=== PATIENT | female | born 1980 | race Hispanic/Latino ===

== ENCOUNTER 2020-10-06 00:40 | Inpatient (IN) | payer OTHER, SELFPAY ==
[2020-10-06] VITALS (22 sets, daily range): BP systolic 99–140; BP diastolic 56–84; PULSE 74–100; RESP 16; TEMP 36.6–37.4; O2SAT 95–97; BMI 31.0
[2020-10-06 01:33] LABS: Basophils Absolute Auto 0.1 K/mm3 (0.0-0.1); Basophils Percent Auto 0.7 % (0.2-1.2); Eosinophils Percent Auto 0.1 % (0-4.4); Hematocrit 33.3 % (37.0-47.0); Hemoglobin 10.7 g/dL (12.0-15.0); Immature Granulocyte Absolute 0.09 K/mm3 (0.00-0.031); Immature Granulocyte Percent A 0.9 % (0-0.5); Mean Corpuscular HGB Conc 32.1 g/dl (32-36); Mean Corpuscular Hemoglobin 26.6 pg (26-34); Mean Corpuscular Volume 82.6 fl (80-100); Mean Platelet Volume 10.1 fl (7.4-10.4); Monocytes Absolute Auto 0.6 K/mm3 (0.1-0.6); Monocytes Percent Auto 5.6 % (2.6-8.5); Neutrophils Percent Auto 69.7 % (45.5-73.1); Nucleated Red Blood Cells Perc 0.2 % (0.0-0.2); Platelet Count Result 322 k/mm3 (150-375); Red Blood Count 4.03 M/mm3 (4.2-5.4); Red Cell Distribution Width 14.8 % (11.5-14.5)
--- NOTE | 2020-10-06 07:17 | P.HP_ITS ---
Obstetrics - Admit Note Admission Note: record reviewed. No pertinent additions to the history and/or any subsequent changes in the physical findings that are not consistent with the expected course of the were found. pt arrived in labor, hx HSV on valtrex, no lesions seen, SVE 4 cm, AROM moderate amount of clear odorles s fluid Additions to the history and/or subsequent changes in the physical findings follow. None.
[2020-10-06 08:30] LABS: Rapid Plasma Reagin Non-Reactive (NonReactive)
[2020-10-06] MEDS: LACTATED RINGERS 1,000 ML 125 ML IV CONT (09:22)
[2020-10-06] MEDS: OXYTOCIN 30 UNITS/NS 500 ML 30 UNITS/500 ML BAG IV CONT (09:22)
--- NOTE | 2020-10-06 12:52 | PM.OBPRVD ---
OB - Delivery Note Procedure Delivery date: 10/06/20 Procedure: vaginal delivery events: Gestational Diabetes Intrapartal events: None Induction method: AROM Delivery augmentation: pitocin Delivery monitor: external FHT and external uterine Route of delivery: Laceration Description: None Specimen: Yes Quantitative Blood Loss (ml): 86 Anesthesia type: None Disposition: floor Baby Date of : 10/06/20 Time of : 12:41 Weeks of gestation at delivery: 39 gender: Male Weight (pounds): 8 Weight (ounces): 1 presentation: vertex position: Left Occiput Anterior Placenta delivery description: Spontaneous cord vessel description: 3 Vessels, Nuchal Cord, Tight and Clamped/Cut score one minute: 5 score five minutes: 9 Narrative: baby to RN for supportive care at time of my exist baby and mother in stable condition
[2020-10-06] MEDS: OXYTOCIN 30 UNITS/NS 500 ML 30 UNITS/500 ML BAG 125 UNITS IV CONT (12:57)
[2020-10-06] MEDS: IBUPROFEN 600 MG TABLET PO (13:36)
--- NOTE | 2020-10-06 15:23 | PC.NURSE ---
Patient transferred to post room #285 per wheelchair from labor and delivery. Support person present. Oriented to unit, room, information board, rooming in, admission packet and security measures. Patient verbalizes understanding.
[2020-10-06] MEDS: ACETAMINOPHEN 325 MG TABLET 650 MG PO (15:44)
[2020-10-06] MEDS: valACYclovir HCL 500 MG TABLET PO (21:00)
[2020-10-07] MEDS: ACETAMINOPHEN 325 MG TABLET 650 MG PO (00:19)
[2020-10-07 03:55] VITALS: BP 110/68; PULSE 77; RESP 16; TEMP 36.4; O2SAT 95
[2020-10-07 04:45] LABS: Hematocrit 31.2 % (37.0-47.0); Hemoglobin 10.1 g/dL (12.0-15.0)
[2020-10-07 08:15] VITALS: BP 112/70; PULSE 78; RESP 16; TEMP 37; O2SAT 98
--- NOTE | 2020-10-07 08:21 | P.PNOB_ITS ---
OB - PN: Subj Subjective Date/time seen: 10/07/20 08:21 Patient comments: no complaints and pain well controlled baby status: doing well and nursing well [place] feeding status: exclusively breast feeding Narrative: would like DC home today. OB - PN: Obj Data Labs CBC & Chem 7: 10/07/20 04:03 Labs: Laboratory Results - last 24 hr 10/06/20 10/07/20 01:24 04:03 Hgb 10.1 L Hct 31.2 L RPR Non-reactive OB - PN A/P Plan day: 1 Plan: routine care and discharge home Comments: DC instructions given Time Spent With Patient Time: Total time spent is greater than 50% in coordination of care (as documented) at patient's floor/unit and/or counseling patient: Time with patient: less than 15 minutes Exam Narrative: Exam Narrative: NAD abdomen soft, nontender, fundus firm below the umbilicus Extremities nontender, 1+ edema
--- NOTE | 2020-10-07 08:25 | P.DS_ITS ---
DS: Admitting Diagnosis Admitting Diagnosis Admitting Diagnosis: labor term DS: Discharge Diagnosis Discharge Diagnosis (1) , delivered: Code(s): O80 - Encounter for full-term uncomplicated delivery Status: Acute OB - DS: Summary OB Procedures : Ultrasound OB Procedures Intrapartum: Spontaneous Vag Delivery OB Procedures: : None Peripartum Data Delivery Method: Natural Vaginal complications: none Status at Discharge Functional status at discharge: independent ambulation Time Spent with Patient Time attestation: Total time spent providing and/or coordinating discharge services: Exam Narrative: Exam Narrative: NAD abdomen soft, appropriately tender Ext non tender, 1+ edema DS: Data Data Completed and Pending Labs on day of discharge: Labs from last 24 hours 10/07/20 10/06/20 04:03 01:24 Hgb 10.1 L Hct 31.2 L RPR Non-reactive Discharge Plan Discharge Attending physician on discharge: Gege Figueroa Discharging Clinician: Gege Figueroa Anticipated Discharge Date/Time: 10/07/20 12:00 Patient Disposition: Home, Self-Care Activity: may shower and pelvic rest Diet: as tolerated Patient Instructions: Antibiotic Form Stand Alone Forms: General Discharge Information Follow-up/Referrals: Gege Figueroa MD [Physician] - (4 weeks) Discharge Medications: Continued Classic 28 mg iron- 800 mcg tablet 1 tablet PO DAILY RF: 0 Discontinued valacyclovir [Valtrex] 500 mg tablet 500 mg PO DAILY RF: 0 Date of admission: 10/06/20 00:40 Primary Care Provider: PHYSICIAN,REHABILITATION MEDICINE PHYSICIAN Admitting Provider: Garima Mccarthy Attending physician on admission: Garima Mccarthy Condition: Stable
[2020-10-07] MEDS: IBUPROFEN 600 MG TABLET PO (10:53)
[2020-10-07] MEDS: MULTIVIT/MIN/PREN/FOL AC/IRON TABLET 1 TAB PO (10:53)
--- NOTE | 2020-10-07 11:43 | PC.NURSE ---
Patient was given the opportunity to view the discharge video Mother & Baby Care, The First Two Weeks and to ask questions. Patient declined viewing the video and has been given the mother/baby guide for home reference.
[2020-10-07 13:00] VITALS: BP 118/74; PULSE 75; RESP 16; TEMP 36.9; O2SAT 97
[2020-10-07] MEDS: TETANUS,DIPHTHERIA,AC PERTUSSIS ADULT (0.5 ML) BOOSTRIX IM (17:02)
[2020-10-10 09:50] VITALS: BP 119/74; PULSE 75; RESP 20; TEMP 37.1; O2SAT 99
== END 2020-10-07 17:50 | disposition home or self-care (01) | DRG 560 ==
LOC: ANHLDR 01:19 → ANHOB2 10-07 08:25 → ANHLDR 10-10 09:49 → ANHOB2 10-10 09:49
PROVIDERS: Advanced Practice Midwife; Admitting Provider Obstetrics & Gynecology; Visit Provider Obstetrics & Gynecology
DX: O24.429 Gestational diabetes mellitus in childbirth, unspecified control (principal); Z37.0 Single live birth; Z3A.39 39 weeks gestation of pregnancy; O69.1XX0 Labor and delivery complicated by cord around neck, with compression, not applicable or unspecified; O99.02 Anemia complicating childbirth; D64.9 Anemia, unspecified
CPT/HCPCS: 36415; 85014; 85018; 85025; 86592; 86850; 86900; 86901; 86920; 90715; A9270; J2590; J7120

== ENCOUNTER 2021-12-16 14:33 | Emergency (ER) | payer OTHER, SELFPAY ==
--- NOTE | ~2021-12-16 | US_ITS ---
EXAMINATION: US OB <= 14 weeks fetus INDICATION: and abd pain and bleeding TECHNIQUE: Sonography of the pelvis was performed by transabdominal techniques (patient declined endo vaginal examination). LMP 10/16/2021. SERENITY by LMP 07/23/2022. GA by LMP 8 weeks 5 days. COMPARISON: None. RESULT: Uterus: - Orientation: Anteverted - Size: 8.2 x 5.0 x 6.7 cm - Myometrium: Homogeneous echogenicity . Gestation: - Intrauterine gestational sac: Single present - Mean Sac Diameter: 1.73 cm, corresponding gestational age 6 week 4 days - Yolk sac: Ovoid somewhat heterogeneous structure within the gestational sac may represent an enlarged abnormal appearing yolk sac. - Embryo: Not seen - Subgestational hematoma: Absent Right ovary: - Size : 2.7 x 1.8 x 1.6 cm - Normal sonographic appearance with physiologic follicles. Left ovary: -Not visualized Pelvis free fluid: None. IMPRESSION: Intrauterine of uncertain viability, with findings that are suspicious for but not diagnost ic of failure. Estimated Gestational Age: 6 weeks, 4 days by mean gestational sac diameter. SERENITY by ultrasound 2022. Reviewed, dictated and finalized at location K. IMPRESSION: Intrauterine of uncertain viability, with findings that are suspiciou s for but not diagnostic of failure. Estimated Gestational Age: 6 weeks, 4 days by mean gestational sac diameter. E DD by ultrasound 08/07/2022.
[2021-12-16 14:41] VITALS: BP 117/65; PULSE 78; RESP 14; TEMP 36.5; O2SAT 99
[2021-12-16 14:52] LABS: Basophils Percent Auto 0.3 % (0.2-1.2); Eosinophils Percent Auto 0.4 % (0-4.4); Hematocrit 37.4 % (37.0-47.0); Hemoglobin 12.4 g/dL (12.0-15.0); Immature Granulocyte Absolute 0.01 K/mm3 (0.00-0.031); Immature Granulocyte Percent A 0.1 % (0-0.5); Lymphocytes Absolute Auto 2.26 K/mm3 (0.9-3.2); Lymphocytes Percent Auto 32.2 % (18.3-44.2); Mean Corpuscular HGB Conc 33.2 g/dl (32-36); Mean Corpuscular Hemoglobin 28.5 pg (26-34); Mean Platelet Volume 8.9 fl (7.4-10.4); Monocytes Absolute Auto 0.3 K/mm3 (0.1-0.6); Monocytes Percent Auto 4.4 % (2.6-8.5); Neutrophils Absolute Auto 4.4 K/mm3 (1.3-6.7); Neutrophils Percent Auto 62.6 % (45.5-73.1); Platelet Count Result 335 k/mm3 (150-375); Red Blood Count 4.35 M/mm3 (4.2-5.4); Red Cell Distribution Width 11.8 % (11.5-14.5)
--- NOTE | 2021-12-16 15:34 | ED.GENADULT ---
HPI - General Adult General Chief complaint: Vaginal Bleeding Stated complaint: , bleeding Time Seen by Provider: 12/16/21 15:28 Source: RN notes reviewed History of Present Illness HPI narrative: Patient presents emergency room from home for vaginal bleeding. Patient states that last menstrual cycle was at the end of September states that she is G9, P7. States she has been having some abdominal pain in the lower abdomen described as cramping has been intermittent. States that vaginal bleeding is described as spotting she denies any fevers or chills nausea vomiting diarrhea or any other symptoms Related Data Home Medications Medication Instructions Recorded Confirmed vits no.126-ferrous fum 1 tablet PO DAILY 10/06/20 10/06/20 28 mg iron-folic acid 800 mcg tablet (Classic ) Allergies Allergy/AdvReac Type Severity Reaction Status Date / Time No Known Allergies Allergy Unverified 02/11/15 11:37 Review of Systems Review of Systems: Gen.: Denies fevers or chills ENT: Denies congestion Respiratory: Denies shortness of breath or cough CV: Denies chest pain or palpitations GI: D reports of lower abdominal cramping denies nausea vomiting or diarrhea see HPI Musculoskeletal: Denies back pain or muscle pain Neuro: Denies numbness, tingling, weakness or focal weakness Skin: Denies rash Except as documented, all other systems reviewed and negative PMFSH Social History Social History Smoking status: Never smoker Substance use: never Gender identity (if verbalized by the patient): Female Spiritual care concerns: No Exam Narrative: APPEARANCE: No acute distress, nontoxic, resting in bed HEENT: Normocephalic, atraumatic, OMM RESPIRATORY: No respiratory distress, clear to auscultation bilaterally with no rhonchi wheezing or rales CARDIOVASCULAR: RRR s murmur ABDOMINAL: Soft nondistended nontender to palpation no rebound or guarding : Normal external exam small mount Dr Holley blood in vaginal canal cervix is closed MUSCULOSKELETAl: Moves all extremities. No clubbing, cyanosis or edema. NEURO: Awake and alert. Following commands, speech normal, no focal deficits SKIN:: Warm, dry. Normal Color PSYCHIATRIC: Normal affect/mood Course Course Emergency Course: Discussed with Dr. Mccarthy presentation work-up reviewed the patient's ultrasound at this time agrees with plan for discharge patient follow-up in the office for repeat work-up and ultrasound Discussed with patient results of workup and diagnosis. Discussed need for follow-up with primary care, proper use of medication, and reasons to return to the emergency department. 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 for further imaging and work-up Vital Signs Vital signs: Vital Signs Temperature 97.7 F 12/16/21 14:41 Pulse Rate 78 12/16/21 14:41 Respiratory Rate 14 12/16/21 14:41 Blood Pressure 117/65 12/16/21 14:41 Pulse Oximetry 99 12/16/21 14:41 Oxygen Delivery Room Air 12/16/21 14:41 Temperature 97.7 F 12/16/21 14:41 Pulse Rate 78 12/16/21 14:41 Respiratory Rate 14 12/16/21 14:41 Blood Pressure 117/65 12/16/21 14:41 Pulse Oximetry 99 12/16/21 14:41 Oxygen Delivery Room Air 12/16/21 14:41 Medical Decision Making Vital Signs Vital Signs: Vital Signs Temperature 97.7 F 12/16/21 14:41 Pulse Rate 78 12/16/21 14:41 Respiratory Rate 14 12/16/21 14:41 Blood Pressure 117/65 12/16/21 14:41 Pulse Oximetry 99 12/16/21 14:41 Oxygen Delivery Room Air 12/16/21 14:41 Temperature 97.7 F 12/16/21 14:41 Pulse Rate 78 12/16/21 14:41 Respiratory Rate 14 12/16/21 14:41 Blood Pressure 117/65 12/16/21 14:41 Pulse Oxi
[2021-12-16] MEDS: ACETAMINOPHEN 500 MG TABLET 1000 MG PO (15:59)
[2021-12-16 18:25] VITALS: BP 137/83; PULSE 81; RESP 14; O2SAT 96
== END 2021-12-16 18:26 | disposition home or self-care (01) ==
PROVIDERS: Emergency Medicine; Emergency Provider Emergency Medicine
DX: O20.0 Threatened abortion (principal); Z3A.01 Less than 8 weeks gestation of pregnancy
CPT/HCPCS: 36415; 76801; 84702; 85025; 85461; 99284; A9270

== ENCOUNTER 2021-12-18 11:36 | Outpatient (CLI) | payer OTHER, SELFPAY | END 2021-12-18 11:37 | disposition home or self-care (01) | LOC: ANHLAB 11:37 | PROVIDERS: Visit Provider Obstetrics & Gynecology | DX: O20.0 Threatened abortion (principal) | CPT/HCPCS: 36415; 84702 ==

== ENCOUNTER 2021-12-20 06:49 | Outpatient (CLI) | payer OTHER, SELFPAY | END 2021-12-20 06:50 | disposition home or self-care (01) | PROVIDERS: Visit Provider Obstetrics & Gynecology | DX: O20.0 Threatened abortion (principal) | CPT/HCPCS: 36415; 84702 ==

== ENCOUNTER 2021-12-28 14:34 | Emergency (ER) | payer OTHER, SELFPAY ==
--- NOTE | ~2021-12-28 | US_ITS ---
US OB transvaginal 12/28/2021 16:57 Indication: Vaginal bleeding with . Retained products. Procedure: High-resolution transvaginal ultrasound of the pelvis Comparison: Ultrasound dated 12/16/2021 Findings: Uterus measures 9.8 x 5.3 x 6.7 cm. Endometrium is thickened measuring 1.6 cm with heteroge neous appearance. There is fluid in the endometrium. No gestational sac identified. The ovaries are w ithin normal limits. Right ovary measures 2.4 x 1.5 x 1.7 cm. Left ovary measures 3.8 x 2 x 1.7 cm. Impression: 1: Thickened heterogeneous endometrium containing fluid measuring up to 1.6 cm. Cannot exclude retain ed products of conception. No evidence for intrauterine gestational sac or pole. Recommend foll ow-up with serial quantitative and beta-hCG levels and ultrasound as clinically indicated. Reviewed, dictated and finalized at location A. Impression: 1: Thickened heterogeneous endometrium containing fluid measuring up to 1.6 cm. Cannot exclude retained products of conception. No evidence for intrauterine g estational sac or pole. Recommend follow-up with serial quantitative and beta-hCG levels and ultrasound as clinically indicated.
[2021-12-28 14:44] VITALS: BP 137/82; PULSE 92; RESP 18; TEMP 36.5; O2SAT 100
--- NOTE | 2021-12-28 15:07 | ED.FEMALEGU ---
HPI - Female Genitourinary General Chief complaint: Vaginal Bleeding <Emma Sotomayor PA-C - Last Filed: 12/28/21 18:23> Stated complaint: vaginal bleeding <Emma Sotomayor PA-C - Last Filed: 12/28/21 18:23> Time Seen by Provider: 12/28/21 14:56 <Emma Sotomayor PA-C - Last Filed: 12/28/21 18:23> History of Present Illness HPI Narrative: Patient is a 41-year-old female who is currently about 8 weeks by LMP here for evaluation of vaginal bleeding and lower abdominal pain x 7 days. Patient was diagnosed with threatened miscarriage at the end of November after her ultrasound was suspicious for failure. She followed up with her OB, Dr. Figueroa, had a repeat ultrasound at the end of last week that showed no yolk sac or pole. Patient has been experiencing vaginal bleeding ever since then, but yesterday she began to pass blood clots. Patient passed a large blood clot upon arrival to the ED; since passage she notes sx improved. No fevers, chills, back pain, leg swelling. <Emma Sotomayor PA-C - Last Filed: 12/28/21 18:23> Related Data Home medications: Home Medications Medication Instructions Recorded Confirmed vits no.126-ferrous fum 1 tablet PO DAILY 10/06/20 10/06/20 28 mg iron-folic acid 800 mcg tablet (Classic ) <Emma Sotomayor PA-C - Last Filed: 12/28/21 18:23> Allergies/Adverse reactions: Allergies Allergy/AdvReac Type Severity Reaction Status Date / Time No Known Allergies Allergy Verified 12/28/21 14:57 <PLACIDO Roque Last Filed: 12/28/21 18:23> Review of Systems Review of Systems: Gen: Denies fevers or chills Eyes: Denies eye pain or visual change ENT: Denies congestion Respiratory: Denies shortness of breath or cough CV: Denies chest pain or palpitations GI: reports lower abdominal pain. Denies nausea, emesis or diarrhea : reports vaginal bleeding. Musculoskeletal: Denies back pain or muscle pain Neuro: Denies numbness, tingling, weakness or focal weakness Skin: Denies rash Except as documented, all other systems reviewed and negative <Emma Sotomayor PA-C - Last Filed: 12/28/21 18:23> [facility] Social History Social History: Social History Smoking status: Never smoker Substance use: never Gender identity (if verbalized by the patient): Female Spiritual care concerns: No <Emma Sotomayor PA-C - Last Filed: 12/28/21 18:23> Exam Narrative: APPEARANCE: Uncomfortable and anxious appearing, tearful Head: Normocephalic and atraumatic. EYES: PERRLA/EOMI, conjunctivae clear NOSE: No nasal drainage EARS: External ear normal in appearance THROAT: Oropharynx is clear. Mucous membranes are moist. NECK: Supple. No adenopathy, no masses. RESPIRATORY: Airway patent, respirations nonlabored. Clear to auscultation bilaterally, no rales, rhonchi, wheezing. CARDIOVASCULAR: Regular rate and rhythm without murmurs, rubs, or gallops. : 8 x 10 cm blood clot passed in bed, large amount of blood noted. Exam performed with motion picture director Jennifer; moderate amount of blood noted in vaginal vault with small blood clots; no brisk bleeding. suprapubic pressure applied with patient bearing down; small blood clot passed. ABDOMINAL: Normoactive bowel sounds. Soft, nontender, nondistended. No rebound tenderness or guarding. MUSCULOSKELETAL: Extremities are warm and well-perfused. Moves all extremities well. No edema. NEURO: Normal speech. No focal neurologic deficits. SKIN: Skin is warm and dry. No rashes. PSYCHIATRIC: Normal affect/mood. <Emma Sotomayor PA-C - Last Filed: 12/28/21 18:23> Course FINANCIAL SERVICES DIRECTOR/PA Physician Supervision I examined this patient. I discussed this patient with HEATHER Sotomayor, I agree with the assessment and plan as documented. <Mich Fields MD - Last Filed: 12/29/21 06:58> Consultations Consultation #1: d/w stacy Jacobs
[2021-12-28 15:28] LABS: Basophils Percent Auto 0.5 % (0.2-1.2); Eosinophils Absolute Auto 0.1 K/mm3 (0-0.3); Eosinophils Percent Auto 0.7 % (0-4.4); Hematocrit 33.7 % (37.0-47.0); Hemoglobin 10.9 g/dL (12.0-15.0); Immature Granulocyte Absolute 0.03 K/mm3 (0.00-0.031); Immature Granulocyte Percent A 0.4 % (0-0.5); Lymphocytes Absolute Auto 1.97 K/mm3 (0.9-3.2); Lymphocytes Percent Auto 24.2 % (18.3-44.2); Mean Corpuscular HGB Conc 32.3 g/dl (32-36); Mean Corpuscular Hemoglobin 27.9 pg (26-34); Mean Corpuscular Volume 86.4 fl (80-100); Mean Platelet Volume 9.2 fl (7.4-10.4); Monocytes Absolute Auto 0.4 K/mm3 (0.1-0.6); Monocytes Percent Auto 4.9 % (2.6-8.5); Neutrophils Absolute Auto 5.6 K/mm3 (1.3-6.7); Neutrophils Percent Auto 69.3 % (45.5-73.1); Platelet Count Result 296 k/mm3 (150-375); White Blood Count 8.1 K/mm3 (4.5-10.0)
[2021-12-28 16:45] VITALS: PULSE 78; RESP 17; O2SAT 97
[2021-12-28 18:08] VITALS: PULSE 65; RESP 18; O2SAT 97
== END 2021-12-28 18:10 | disposition home or self-care (01) ==
PROVIDERS: Physician Assistant; Emergency Provider Preventive Medicine Aerospace Medicine
DX: O03.9 Complete or unspecified spontaneous abortion without complication (principal)
CPT/HCPCS: 36415; 76817; 84702; 85025; 99284

== ENCOUNTER 2022-07-19 07:51 | Outpatient (CLI) | payer OTHER, SELFPAY ==
--- NOTE | ~2022-07-19 | US_ITS ---
EXAMINATION: US pelvic complete w TV DATE: 07/19/2022 08:43 INDICATION: Personal history of complicated . Lower abdominal pain. Comparison:12/28/2021 TECHNIQUE: Multiple transabdominal and endovaginal sonographic images of the pelvis performed. FINDINGS: The uterus measures 7.9 x 4 x 5.4 cm. The endometrial complex measures 10 mm. The right ovary measures 3.7 x 2 x 1.9 cm and the left ovary measures 1.6 x 0.7 x 0.8 cm. There are small follicles in each ovary. Normal doppler signal in both ovaries. There is no free fluid in the pelvis. There are no abnormal masses seen on either side. IMPRESSION: 1. Unremarkable pelvic ultrasound. Reviewed, dictated and finalized at location B. HOUSE LEAD
== END 2022-07-19 07:52 | disposition home or self-care (01) ==
PROVIDERS: Visit Provider Physician Assistant
DX: Z87.59 Personal history of other complications of pregnancy, childbirth and the puerperium (principal)
CPT/HCPCS: 76830; 76856

== ENCOUNTER 2023-07-09 09:59 | Inpatient (IN) | payer OTHER, SELFPAY ==
[2023-07-09] VITALS (25 sets, daily range): BP systolic 98–148; BP diastolic 56–94; PULSE 64–96; RESP 18; TEMP 36.8–36.9; O2SAT 95–99; BMI 28.6
--- NOTE | 2023-07-09 12:33 | WPDOBADMIT ---
Obstetrics - Admit Note Admission Note: record reviewed. No pertinent additions to the history and/or any subsequent changes in the physical findings that are not consistent with the expected course of the were found. Additions to the history and/or subsequent changes in the physical findings follow. pt admitted in labor, SVE 6-7 cm/90/-2 AROM large amount of clear, odorless fluid, anticipate vaginal delivery
[2023-07-09 12:45] LABS: Basophils Absolute Auto 0.1 K/mm3 (0.0-0.1); Basophils Percent Auto 0.4 % (0.2-1.2); Eosinophils Percent Auto 0.2 % (0-4.4); Hematocrit 37.9 % (37.0-47.0); Hemoglobin 12.4 g/dL (12.0-15.0); Immature Granulocyte Absolute 0.05 K/mm3 (0.00-0.031); Immature Granulocyte Percent A 0.4 % (0-0.5); Lymphocytes Absolute Auto 2.37 K/mm3 (0.9-3.2); Lymphocytes Percent Auto 19.4 % (18.3-44.2); Mean Corpuscular HGB Conc 32.7 g/dl (32-36); Mean Corpuscular Hemoglobin 28.1 pg (26-34); Mean Corpuscular Volume 85.9 fl (80-100); Mean Platelet Volume 10.7 fl (7.4-10.4); Monocytes Absolute Auto 0.4 K/mm3 (0.1-0.6); Monocytes Percent Auto 3.6 % (2.6-8.5); Neutrophils Absolute Auto 9.3 K/mm3 (1.3-6.7); Platelet Count Result 361 k/mm3 (150-375); Red Blood Count 4.41 M/mm3 (4.2-5.4); Red Cell Distribution Width 14.8 % (11.5-14.5); White Blood Count 12.2 K/mm3 (4.5-10.0)
[2023-07-09] MEDS: OXYTOCIN 30 UNITS/NS 500 ML 30 UNITS/500 ML BAG 999 UNITS IV CONT (12:47)
--- NOTE | 2023-07-09 12:52 | P.PCNOB_ITS ---
OB - Vaginal Delivery Note Procedure Delivery date: 07/09/23 Events: Chronic Hypertension (hx) Induction method: None Delivery augmentation: Rupture of Membranes Delivery monitor: External FHT and External Uterine Route of delivery: Episiotomy description: None Laceration Description: None Specimen: No Quantitative Blood Loss (ml): 25 Anesthesia type: None Disposition: Floor [place] Baby Date of : 07/09/23 Time of : 12:44 Weeks of gestation at delivery: 38 Infant gender: Female presentation: vertex position: Left Occiput Anterior Placenta delivery description: Spontaneous Cord Vessel Description: 3 Vessels and Delayed Cord Clamping score one minute: 8 score five minutes: 9 Narrative: mother and baby skin to skin in stable condition
[2023-07-09 12:57] LABS: Alanine Aminotransferase 11 U/L (6-35); Albumin Level 3.8 g/dL (3.5-5.1); Alkaline Phosphatase 188 U/L (38-126); Anion Gap 12 mmol/L (8-16); Aspartate Amino Transferase 25 U/L (14-36); Bilirubin,Total 0.6 mg/dL (0.2-1.3); Blood Urea Nitrogen 8 mg/dL (7-17); Calcium 9.1 mg/dL (8.4-10.2); Carbon Dioxide 19 mmol/L (22-30); Chloride 104 mmol/L (98-107); Estimated Glomerular Filt Rate > 60; Glucose 73 mg/dL (65-110); Potassium 3.5 mmol/L (3.4-5.0); Sodium 135 mmol/L (137-145)
--- NOTE | 2023-07-09 13:13 | LDADM ---
This patient, Sadia Harrell, was admitted to Labor/Delivery/Recovery 107 on 07/09/23 at 09:59. Plans for labor, pain management and were discussed with patient. Patient/family oriented to hospital policies and general routines including ID bracelet, bed and alarms, visiting hours, pain management, procedures, bathroom and other care routines, personal items, smoking policy, room service/diet and guest tray routines, security routines, and visiting hours. Patient/Family are encouraged to report perceived risks to care and to ask questions if they do not understand what they are told or what they should do. See OBIX for further documentation.
[2023-07-09] MEDS: OXYTOCIN 30 UNITS/NS 500 ML 30 UNITS/500 ML BAG 125 UNITS IV CONT (13:21)
[2023-07-09] MEDS: IBUPROFEN 600 MG TABLET PO (14:19)
[2023-07-09] MEDS: WITCH HAZEL 40 PADS 1 PAD TOPICAL (16:02)
[2023-07-09] MEDS: BENZOCAINE 20% AER SPR (*SP) 56 GM CAN 1 SPRAY TOPICAL (16:02)
--- NOTE | 2023-07-09 16:05 | OBPPTRN ---
Patient transferred to post room #280 via wheelchair. Support person present. Oriented to unit, room, information board, rooming in, admission packet and security measures. Patient verbalizes understanding.
[2023-07-10 05:12] VITALS: BP 138/64; PULSE 62; RESP 18; TEMP 36.9; O2SAT 97
[2023-07-10] MEDS: IBUPROFEN 600 MG TABLET PO (05:42)
[2023-07-10 06:18] LABS: Hematocrit 35.3 % (37.0-47.0); Hemoglobin 11.2 g/dL (12.0-15.0)
[2023-07-10 07:45] VITALS: BP 116/72; PULSE 62; RESP 16; TEMP 36.6; O2SAT 99
[2023-07-10] MEDS: MULTIVIT/MIN/PREN/FOL AC/IRON TABLET 1 TAB PO (09:22)
[2023-07-10] MEDS: DOCUSATE SODIUM 100 MG CAPSULE PO (09:22)
--- NOTE | 2023-07-10 12:51 | PM.OBPNVD ---
OB - PN: Subj Subjective Date/time seen: 07/10/23 12:51 Patient comments: no complaints, pain well controlled, incisional pain, tolerating diet and flatus present OB - PN: Obj Data Labs 07/10/23 05:33 07/09/23 12:16 Labs: Laboratory Results - last 24 hr 07/09/23 07/10/23 12:16 05:33 Hgb 11.2 L Hct 35.3 L Sodium 135 L Potassium 3.5 Chloride 104 Carbon Dioxide 19 L Anion Gap 12 BUN 8 Creatinine 0.60 L Estim Creat Clear Calc Not Reportable Estimated GFR > 60 Glucose 73 Calcium 9.1 Total Bilirubin 0.6 AST 25 ALT 11 Alkaline Phosphatase 188 H Total Protein 7.0 Albumin 3.8 Blood Type O Positive Antibody Screen Negative OB - PN A/P Plan day: 1 Plan: routine care Comments: No problems, routine care Time Spent With Patient Time: Total time spent is greater than 50% in coordination of care (as documented) at patient's floor/unit and/or counseling patient: Exam Const: General: comfortable, no acute distress and alert Resp: Effort & Inspection: normal respiratory effort Auscultation: no crackles, no rales and no rhonchi Cardio: Rate: regular rate Heart sounds: no click, no murmurs and no rubs GI: Inspection: non-distended GI Palp: No Tenderness to palpation present (GI) Auscultation: normal bowel sounds Other: Incision - CDI Extrem: General: normal to inspection, no pedal edema and no calf tenderness
[2023-07-10 12:59] LABS: Rapid Plasma Reagin Non-Reactive (NonReactive)
[2023-07-10 20:52] VITALS: BP 104/62; PULSE 64; RESP 16; TEMP 36.8; O2SAT 96
[2023-07-11 08:00] VITALS: PULSE 58; RESP 16; O2SAT 98
[2023-07-11 08:15] VITALS: BP 132/91; PULSE 58; RESP 16; TEMP 37.1; O2SAT 98
[2023-07-11] MEDS: MULTIVIT/MIN/PREN/FOL AC/IRON TABLET 1 TAB PO (09:17)
--- NOTE | 2023-07-11 10:35 | PM.OBPNVD ---
OB - PN: Subj Subjective Date/time seen: 07/11/23 10:35 Interval history: Doing well PPD#2 Baby on bili lights Patient recovering well, some right sided hip and thigh pain, likely 2/2 labor Voiding without issue Bleeding appropriate OB - PN: Obj Data Labs 07/10/23 05:33 07/09/23 12:16 Labs: Laboratory Results - last 24 hr 07/09/23 12:16 RPR Non-reactive OB - PN A/P Plan day: 2 Plan: discharge home Time Spent With Patient Time: Total time spent is greater than 50% in coordination of care (as documented) at patient's floor/unit and/or counseling patient: Review of Systems Review of Systems: All systems reviewed & are unremarkable except as noted in HPI and below Exam Const: General: comfortable, no acute distress and alert Resp: Effort & Inspection: normal respiratory effort Cardio: Rate: regular rate GI: Inspection: non-distended Extrem: General: normal to inspection, no pedal edema and no calf tenderness
--- NOTE | 2023-07-11 13:06 | PC.NURSE ---
[id number] With father of baby interpreting mother shared that she has breastfed all 6 of her other children for 1 year and she has no questions or concerns. She states she is on her own with no pain. There is formula bottle at bedside for supplementing infant under phototherapy. Mother states she is confident to continue effectively her infant at home, when to call for assistance, denies any additional assistance or education at this time. Reinforced understanding of milk production, transition of milk, signs of adequate intake, transition of stool, prevention/relief of engorgement, plugged ducts, mastitis, responsive watching for feeding cues, the different methods of stimulating infant to breastfeed 1-3 hours after the start of the last feeding, community resources, medication information reviewed per [facility] and when to call a provider using the resource of the mom and baby guide. Mother voiced understanding of the education shared through father of baby nahomi. Reported to the Primary RN.
[2023-07-11 16:51] VITALS: BP 120/68; PULSE 99; RESP 18; TEMP 36.6; O2SAT 96
--- NOTE | 2023-07-14 23:29 | PM.OBDSVD ---
DS: Admitting Diagnosis Discharge Date 07/11/23 Admitting Diagnosis labor DS: Discharge Diagnosis Discharge Diagnosis (1) (spontaneous vaginal delivery): Code(s): O80 - Encounter for full-term uncomplicated delivery Status: Acute OB - DS: Summary OB Procedures : None OB Procedures Intrapartum: Spontaneous Vag Delivery OB Procedures: : None Peripartum Data Laceration Description: None Episiotomy description: None Time Spent with Patient Time attestation: Total time spent providing and/or coordinating discharge services: Discharge Plan Discharge Attending physician on discharge: Balwinder Long Consulting providers: Erica López Discharging Clinician: Balwinder Long Patient Disposition: Home, Self-Care Activity: no shower and pelvic rest Diet: as tolerated Discharge Instructions: Education: Mom and Baby Guide Given to: Mother Follow-Up: Call your delivering provider's office for an appointment to be seen in: 5 weeks Mom and baby [facility] come [facility] the [facility] for the follow-up appointment. Appointment Date/Time: July 12, 2023 at 11:00 am What to expect at your follow-up visit: Blood Pressure Check Physical Assessment Call [phone] if you are unable to keep your appointment time. BREAST CARE: * Wear a snug supportive bra. * For engorgement discomfort: Breast Feeding: * Apply warm moist washcloths * Express milk as needed to relieve engorgement * Wear loose clothing * For sore nipples: * Identify correct latch-on * Apply warm moist washcloths before and after nursing * Air dry nipples after nursing * May apply Lansinoh cream to nipples EPISIOTOMY/PERINEAL CARE: * Until bleeding stops, use your nadja bottle after urinating * Change your pad frequently throughout the day * You may take sitz baths several times a day (fill your bathtub with warm water and soak for 20 minutes.) Do NOT bathe in the water * No tub baths until seen by your physician - You may shower ACTIVITY: * Rest as much as possible. * Do not exercise or lift anything heavier than your baby (such as laundry or other children.) * Avoid stairs or driving as much as possible. * Do not put anything into the vagina. No douching, tampons, or sexual activity until seen by physician. NOTIFY PHYSICIAN IF YOU HAVE ANY QUESTIONS OR IF ANY OF THE FOLLOWING SYMPTOMS OCCUR: * If your perineum becomes red, swollen, or more painful than what you have experienced in the hospital. * If your vaginal bleeding becomes foul smelling. * If your vaginal bleeding becomes more heavy than a period or if your bleeding changes from pink to bright red. However, you may pass an occasional walnut-sized clot once or twice for the first week . * If you experience a sharp, shooting pain in you calves. * If you discover a hard, reddened area on your breast or if you experience flu-like symptoms. DIET: * Eat regular, well-balanced meals. * Drink plenty of fluids daily. If , drink to thirst. Patient Instructions: Antibiotic Form Stand Alone Forms: General Discharge Information Follow-up/Referrals: Erica López CNM [Primary Care Provider] - 5 Weeks Discharge Medications: Continued Classic 28 mg iron- 800 mcg tablet 1 tablet PO DAILY Discontinued ferrous sulfate 325 mg (65 mg iron) Tablet 325 mg PO DAILY aspirin 81 mg Capsule 81 mg PO DAILY Date of admission: 07/09/23 09:59 Primary Care Provider: Erica López Admitting Provider: Garima Mccarthy Attending physician on admission: Balwinder Long Condition: Stable
== END 2023-07-11 19:35 | disposition home or self-care (01) | DRG 560 ==
LOC: ANHOB2 07-11 11:02 → ANHLDR 07-14 08:13 → ANHOB2 07-14 08:13
PROVIDERS: Admitting Provider Obstetrics & Gynecology; PCP Advanced Practice Midwife; Visit Provider Obstetrics & Gynecology
DX: O62.3 Precipitate labor (principal); Z37.0 Single live birth; Z3A.38 38 weeks gestation of pregnancy; Z23 Encounter for immunization
CPT/HCPCS: 36415; 80053; 85014; 85018; 85025; 86592; 86850; 86900; 86901; 90471; 90686; A9270; G0008; J2590

== ENCOUNTER 2023-09-12 10:23 | Outpatient (CLI) | payer OTHER, SELFPAY ==
--- NOTE | ~2023-09-12 | US_ITS ---
EXAMINATION: US abdomen complete DATE: 09/12/2023 11:53 INDICATION: Right upper quadrant abdominal pain. TECHNIQUE: Multiple grayscale and Doppler ultrasound images of the abdomen were obtained. COMPARISON: None FINDINGS: The visualized portions of the head and body of the pancreas are normal. There is diffuse h epatic steatosis. There is a 1.2 cm hypoechoic mass in the liver. There is normal flow in main portal vein. The gallbladder is normal in size. No gallstones or gallbladder wall thickening. There is no s onographic Waller's sign. The common duct is normal and measures 3 mm. The kidneys are normal in size . The spleen is normal in size. Abdominal aorta is normal in caliber. Inferior vena cava is normal. IMPRESSION: 1. 1.2 cm hypoechoic liver mass, which may be benign or malignant. Abdomen MRI without and with contr ast is recommended. 2. Diffuse hepatic steatosis. Reviewed, dictated and finalized at location A. IMPRESSION: 1. 1.2 cm hypoechoic liver mass, which may be benign or malignant. Abdomen MRI without and with contrast is recommended. 2. Diffuse hepatic steatosis.
== END 2023-09-12 10:24 | disposition home or self-care (01) ==
PROVIDERS: PCP Advanced Practice Midwife; Visit Provider Advanced Practice Midwife
DX: R10.11 Right upper quadrant pain (principal); K76.0 Fatty (change of) liver, not elsewhere classified
CPT/HCPCS: 76700

== ENCOUNTER 2023-10-30 10:09 | Outpatient (CLI) | payer OTHER, SELFPAY ==
[2023-10-30 11:00] LABS: Prothrombin Time 13.5 Seconds (11.1-14.7)
[2023-10-30 11:05] LABS: Lipase 84 U/L (23-300)
[2023-10-30 11:52] LABS: Iron 84 ug/dL (37-170)
[2023-10-30 12:05] LABS: Percent Iron Saturation 20 % (20-50)
[2023-10-30 12:14] LABS: Hepatitis B Surface Antigen Negative (Negative)
[2023-10-30 12:19] LABS: HAV RESULT Negative (Negative); Hepatitis B Core IgM Result Negative (Negative)
[2023-10-30 12:31] LABS: Hepatitis C Virus Antibody Negative (Negative)
[2023-11-03 12:24] LABS: Alpha-1-Antitrypsin, QN 115 mg/dL (83-199); Ceruloplasmin 31 mg/dL (14-48)
[2023-11-04 23:13] LABS: LKM 1 Antibody <=20.0 U (<=20.0)
[2023-11-06 13:23] LABS: Actin Antibody (IgG) <20 U (<20)
[2023-11-10 21:03] LABS: Mitochondrial (M2) Ab (IgG) <20.0 U
== END 2023-10-30 10:10 | disposition home or self-care (01) ==
LOC: ANHLAB 10:10
PROVIDERS: PCP Advanced Practice Midwife; Visit Provider Nurse Practitioner
DX: R74.8 Abnormal levels of other serum enzymes (principal); K76.9 Liver disease, unspecified; K74.60 Unspecified cirrhosis of liver
CPT/HCPCS: 36415; 80074; 82103; 82390; 82728; 83520; 83540; 83550; 83690; 85610; 86038; 86039; 86364; 86376

== ENCOUNTER 2023-11-13 08:30 | Emergency (ER) | payer OTHER, SELFPAY ==
[2023-11-13] VITALS (8 sets, daily range): BP systolic 102–140; BP diastolic 71–84; PULSE 98–125; RESP 12–22; TEMP 37.7–38.4; O2SAT 95–97
--- NOTE | ~2023-11-13 | XR_ITS ---
XR chest 2V Ordering provider: Jerrell Frederick History: 43 years Female with . cough and fever . Comparison: None. FINDINGS: MEDIASTINUM: The cardiac silhouette is not enlarged. LUNGS: No infiltrates, effusions or pneumothorax. OTHER: No free air under the diaphragm. IMPRESSION: No acute cardiopulmonary pathology. Reviewed, dictated and finalized at location A.
--- NOTE | ~2023-11-13 | CT_ITS ---
EXAMINATION: CT abdomen pelvis w con DATE: 11/13/2023 10:58 INDICATION: Abdominal pain and fever TECHNIQUE: Computed tomography (CT) of the abdomen and pelvis was performed with 100 mL Omnipaque-350 intravenous contrast. Automated exposure control and iterative reconstruction technique were employe d. The dose-length product was 472.03 mGy-cm. COMPARISON: None FINDINGS: 9 mm centrally calcified nodule at the basilar right middle lobe consistent with sequela of old granu lomatous disease. Lung bases are otherwise clear. Heart size is normal. No pericardial or pleural eff usion. Liver, gallbladder, spleen, pancreas, bilateral adrenal glands and kidneys are normal. Small a mount of fluid scattered throughout the large and small bowel consistent with nonspecific diarrhea. N o bowel obstruction. Normal appendix. Bladder, uterus and bilateral adnexa are unremarkable. Trace am ount of likely physiologic free fluid in the cul-de-sac. No abscess or free intraperitoneal gas. No p athologically enlarged abdominal or pelvic lymphadenopathy. There are small erosions with iliac side predominance at the bilateral sacralized joints consistent with relatively symmetric mild bilateral s acroiliitis. IMPRESSION: 1. Fluid throughout nondilated small and large bowel consistent with nonspecific diarrhea. 2. Relative symmetric mild bilateral sacroiliitis. Differential includes enteropathic arthritis relat ed to Crohn's disease or ulcerative colitis, ankylosing spondylitis, rheumatoid arthritis and Whipple 's disease. Reviewed, dictated and finalized at location B. IMPRESSION: 1. Fluid throughout nondilated small and large bowel consistent with nonspecifi c diarrhea. 2. Relative symmetric mild bilateral sacroiliitis. Differential includes entero pathic arthritis related to Crohn's disease or ulcerative colitis, ankylosing s pondylitis, rheumatoid arthritis and Whipple's disease.
--- NOTE | 2023-11-13 08:46 | ECG_ITS ---
Test Date: 2023-11-13 08:50:37 Measurements Intervals Adrian Rate: 123 P: 38 NH: 158 QRS: 139 QRSD: 104 T: 5 QT: 432 QTc: 620 Interpretive Statements SINUS TACHYCARDIA INCOMPLETE RIGHT BUNDLE BRANCH BLOCK [90+ ms QRS DURATION, TERMINAL R IN V1/V2, 40+ ms S IN I/aVL/V4/V5/V6] POSSIBLE RIGHT VENTRICULAR HYPERTROPHY [SOME/ALL OF: PROMINENT R IN V1, LATE TRANSITION, RAD, JERSON, SSS] No previous ECG available for comparison Electronically Signed On 11-13-2023 13:36:41 CDT by Bry Mejia M.D.
--- NOTE | 2023-11-13 08:56 | ED.FEVER ---
HPI - Fever General Chief Complaint: Fever Stated Complaint: fever, bodyaches Time Seen by Provider: 11/13/23 08:35 History of Present Illness HPI Narrative: 43-year-old female presents to the emergency department for evaluation for onset of upper abdominal pain and fever. Patient states she has had abdominal pain for greater than 1 month. Patient was scheduled to have an outpatient EGD today when she was found to be tachycardic and have a low-grade fever. Patient was referred to the emergency department for further evaluation. Related Data Home Medications Medication Instructions Recorded Confirmed ergocalciferol (vitamin D2) 1,250 1,250 mcg PO DIRECTED 11/06/23 11/06/23 mcg (50,000 unit) capsule omeprazole 20 mg capsule,delayed 20 mg PO BID 11/06/23 11/13/23 release Allergies Allergy/AdvReac Type Severity Reaction Status Date / Time No Known Allergies Allergy Verified 11/13/23 07:52 Review of Systems Review of Systems: All systems reviewed & are unremarkable except as noted in HPI and below PMFSH Past Medical History Medical History (Updated 11/13/23 @ 12:32 by Jerrell Frederick MD) GERD (gastroesophageal reflux disease) NAFLD (nonalcoholic fatty liver disease) Family History Family History (Updated 06/27/23 @ 14:46 by Angelia Sin RN) Other Unknown family medical history Social History Social History Smoking status: Never smoker Substance use: never Substance use type: does not use Do You Feel Safe in your Home?: Yes Lack of Transportation: No Lack of Food: Never True Current Housing: I Have Housing Concerned About Future Housing: No Difficulty Paying Gas/Electric Bills: No Difficulty Paying for Meds: No Currently Unemployed: No Education: High School Diploma/GED Difficulty w/ Childcare or Family Care: No Living arrangements: with family Gender identity (if verbalized by the patient): Female Spiritual care concerns: No Exam Narrative: APPEARANCE: Well appearing, no pain, no distress, well-nourished. HEAD: normocephalic, atraumatic. EYES: PERRLA/EOMI, conjunctivae clear. NOSE: Normal no drainage EARS:TMS clear with good light reflex. THROAT: Pharynx clear, no exudate. NECK: Supple. No adenopathy, no masses. RESPIRATORY: Airway patent, respirations nonlabored. Clear to auscultation bilaterally, no rales, rhonchi, wheezing. CARDIOVASCULAR: Regular rate and rhythm without murmurs rubs or gallops. ABDOMINAL: Epigastric tenderness to palpation MUSCULOSKELETAL: Moves all extremities. Strength/ROM intact, No edema, No calf tenderness. NEURO: Alert. Cranial nerves II through XII intact. Grossly intact SKIN: Warm, dry. Normal Color Course AMBULATORY TECHNOLOGIST/PA Physician Supervision Patient felt improved female was discharged home Vital Signs Vital signs: Vital Signs Temperature 101.2 F H 11/13/23 08:41 Pulse Rate 125 H 11/13/23 08:41 Respiratory Rate 21 H 11/13/23 08:41 Blood Pressure 140/76 11/13/23 08:41 Pulse Oximetry 97 11/13/23 08:41 Oxygen Delivery Room Air 11/13/23 08:41 Temperature 100 F H 11/13/23 11:00 Pulse Rate 104 H 11/13/23 12:24 Respiratory Rate 16 11/13/23 12:24 Blood Pressure 102/71 11/13/23 12:24 Pulse Oximetry 96 11/13/23 12:24 Oxygen Delivery Room Air 11/13/23 08:41 MDM - Fever MDM Narrative Medical decision making narrative: 43-year-old female present to the emergency department for evaluation for epigastric pain. Patient does have a low-grade fever this was treated with Tylenol. Patient does have a leukocytosis 11.9 a stable hemoglobin of 13.2. No acute abnormalities on the patient's CMP UA was negative for infection. Patient was negative for influenza RSV and for COVID. CT of the pelvis was ordered due to the patient's discomfort and does show colitis. Patient will be treated for colitis with Augmentin also provided Zofran for nausea control. Patient was advised to follow a cl
[2023-11-13 09:26] LABS: Appearance Urine Clear (Clear); Bilirubin Urine Negative (Negative); Blood Urine Negative (Negative); Color Urine Yellow (Yellow); Glucose Urine UA Negative (Negative); Ketones Urine Negative (Negative); Leukocyte Esterase Ur Negative LEU/UL (Negative); Nitrate Urine Negative (Negative); Protein Urine Negative (Negative); Specific Grav Ur 1.007 (1.001-1.035); Urobilinogen Urine 0.2 mg/dL (<2.0); pH Urine 8.5 (5.0-9.0)
[2023-11-13 09:27] LABS: Add Urine Microscopic? NO
[2023-11-13 09:59] LABS: Influenza A QL RT-PCR Negative (Negative); Influenza B QL RT-PCR Negative (Negative); RSV RNA, RT-PCR Negative (Negative); SARS-CoV-2 RNA PCR Negative (Negative)
[2023-11-13 10:02] LABS: Basophils Percent Auto 0.3 % (0.2-1.2); Eosinophils Percent Auto 0.1 % (0-4.4); Hemoglobin 13.2 g/dL (12.0-15.0); Immature Granulocyte Absolute 0.06 K/mm3 (0.00-0.031); Immature Granulocyte Percent A 0.5 % (0-0.5); Lymphocytes Absolute Auto 0.83 K/mm3 (0.9-3.2); Mean Corpuscular HGB Conc 33.8 g/dl (32-36); Mean Corpuscular Hemoglobin 29.6 pg (26-34); Mean Corpuscular Volume 87.4 fl (80-100); Mean Platelet Volume 9.3 fl (7.4-10.4); Monocytes Absolute Auto 0.4 K/mm3 (0.1-0.6); Neutrophils Absolute Auto 10.6 K/mm3 (1.3-6.7); Neutrophils Percent Auto 89.1 % (45.5-73.1); Platelet Count Result 297 k/mm3 (150-375); Red Blood Count 4.46 M/mm3 (4.2-5.4); Red Cell Distribution Width 11.6 % (11.5-14.5); White Blood Count 11.9 K/mm3 (4.5-10.0)
[2023-11-13] MEDS: PANTOPRAZOLE SODIUM IV 40 MG VIAL IV PUSH (10:02)
[2023-11-13] MEDS: ACETAMINOPHEN 500 MG TABLET 1000 MG PO (10:03)
[2023-11-13] MEDS: BELLADONNA ALK/PHENOB ELIX 10 ML, MAG HYDROX/ALUMINUM HYD/SIMETH 30 ML, LIDOCAINE HCL 2... PO (10:04)
[2023-11-13 10:13] LABS: Alanine Aminotransferase 20 U/L (6-35); Albumin Level 4.9 g/dL (3.5-5.1); Alkaline Phosphatase 66 U/L (38-126); Anion Gap 11 mmol/L (4-12); Aspartate Amino Transferase 23 U/L (14-36); Bilirubin,Total 0.7 mg/dL (0.2-1.3); Blood Urea Nitrogen 9 mg/dL (7-17); Calcium 9.1 mg/dL (8.4-10.2); Carbon Dioxide 26 mmol/L (22-30); Chloride 103 mmol/L (98-107); Estimated Glomerular Filt Rate > 60; Glucose 113 mg/dL (65-110); Potassium 3.6 mmol/L (3.4-5.0); Sodium 140 mmol/L (137-145)
[2023-11-13] MEDS: SODIUM CHLORIDE 0.9% IV 1,000 ML 999 ML IV CONT (11:34)
== END 2023-11-13 12:50 | disposition home or self-care (01) ==
PROVIDERS: Emergency Provider Emergency Medicine
DX: R50.9 Fever, unspecified (principal); R10.13 Epigastric pain; Z20.822 Contact with and (suspected) exposure to COVID-19; K21.9 Gastro-esophageal reflux disease without esophagitis; K76.0 Fatty (change of) liver, not elsewhere classified; M46.1 Sacroiliitis, not elsewhere classified
CPT/HCPCS: 36415; 71046; 74177; 80053; 81003; 81025; 85025; 87637; 93005; 96361; 96374; 99284; A9270; C9113; J7030; Q9967

== ENCOUNTER 2023-11-18 07:39 | Outpatient (CLI) | payer OTHER, SELFPAY ==
--- NOTE | ~2023-11-18 | MR_ITS ---
EXAMINATION: MR abdomen wo/w con DATE: 11/18/2023 08:42 INDICATION: Liver lesion on ultrasound TECHNIQUE: Magnetic resonance imaging (MRI) of the abdomen was performed without and with 14 mL Multi vijaya intravenous contrast. Sequences included coronal T2-weighted SS-FSE, coronal and axial FS 2D-F IESTA, axial STIR FSE, axial T2-weighted SS-FSE, axial T2-weighted FS SS-FSE, axial diffusion-weighte d SE, axial dual-echo T1-weighted FSPGR, and axial and coronal T1-weighted LAVA. Postcontrast axial T 1-weighted LAVA images were obtained in a time course. Postcontrast coronal T1-weighted LAVA images w ere obtained. COMPARISON: CT dated 11/13/2023 and ultrasound dated 09/12/2023 FINDINGS: Heart size is normal. No pericardial or pleural effusion. Minimal diffuse hepatic steatosis with mild decreased signal on opposed phase imaging. No hepatic masses. Specifically no correlate identified f or the hypoechoic lesion identified on the prior ultrasound which was also not evident on the interve james CT . Gallbladder is normal. No intra or extra hepatic biliary ductal dilation. Spleen, pancreas, bilateral adrenal glands and kidneys are normal. Normal abdominal aorta. Visualized portions of anette ls are unremarkable with no obstruction. Bones are unremarkable with normal marrow signal throughout. IMPRESSION: 1. Minimal diffuse hepatic steatosis. No correlate for the hypoechoic lesion identified on prior ultr asound which was also without correlate on the intervening CT. Reviewed, dictated and finalized at location B. IMPRESSION: 1. Minimal diffuse hepatic steatosis. No correlate for the hypoechoic lesion id entified on prior ultrasound which was also without correlate on the intervenin g CT.
== END 2023-11-18 07:40 | disposition home or self-care (01) ==
PROVIDERS: Visit Provider Nurse Practitioner
DX: R93.2 Abnormal findings on diagnostic imaging of liver and biliary tract (principal); K76.9 Liver disease, unspecified; R74.8 Abnormal levels of other serum enzymes; R10.9 Unspecified abdominal pain
CPT/HCPCS: 74183; A9577

== ENCOUNTER 2023-11-26 07:57 | Outpatient (NON) | payer OTHER, SELFPAY | END 2023-11-26 07:58 | disposition home or self-care (01) | PROVIDERS: Visit Provider Internal Medicine Gastroenterology | DX: R10.10 Upper abdominal pain, unspecified (principal) | CPT/HCPCS: 88305 ==

== ENCOUNTER 2023-11-26 09:39 | Day surgery (SDC) | payer OTHER, SELFPAY ==
[2023-11-17 12:43] VITALS: BMI 27.6
--- NOTE | 2023-11-26 06:55 | WPDANESEPPF ---
Anes - Initial Pre Proc Eval Procedure: Operation Date: 11/26/23 12:30 Proposed Procedures p Esophagogastroduodenoscopy - Kt Luther MD s Diagnostic Colonoscopy - Kt Luther MD Date/Time: 11/26/23 06:55 Surgeon: Kt Luther MD Pre Op Diagnosis: Right lower quad pain,right upper abdominal Patient Data Age: 43 Gender: F Height: 1.57 m Weight: 151.6 kg Allergies Allergy/AdvReac Type Severity Reaction Status Date / Time No Known Allergies Allergy Verified 11/26/23 11:59 Home Medications Medication Instructions Recorded Confirmed Type ergocalciferol (vitamin D2) 1,250 1,250 mcg PO DIRECTED 11/06/23 11/26/23 History mcg (50,000 unit) capsule omeprazole 20 mg capsule,delayed 20 mg PO BID 11/06/23 11/26/23 History release ondansetron 4 mg disintegrating 4 mg PO Q8H PRN nausea and 11/13/23 11/26/23 Rx tablet vomiting #14 tabs Patient hx anesthesia problems: none Family hx anesthesia problems: none Results Review: All pre-operative results and documents have been reviewed as part of the pre-operative evaluation. [facility] Past Medical History Medical History (Updated 11/14/23 @ 00:01 by Daya Hunter) GERD (gastroesophageal reflux disease) NAFLD (nonalcoholic fatty liver disease) Family History Family History (Updated 06/27/23 @ 14:46 by Angleia Sin RN) Other Unknown family medical history Social History Social History Smoking status: Never smoker Substance use: never Substance use type: does not use Do You Feel Safe in your Home?: Yes Lack of Transportation: No Lack of Food: Never True Current Housing: I Have Housing Concerned About Future Housing: No Difficulty Paying Gas/Electric Bills: No Difficulty Paying for Meds: No Currently Unemployed: No Education: High School Diploma/GED Difficulty w/ Childcare or Family Care: No Living arrangements: with family Gender identity (if verbalized by the patient): Female Spiritual care concerns: No Anes - Eval Final PreProcedure Day of Procedure 11/26/23 06:55 Patient weight: overweight Heart: regular rate and rhythm Lungs: clear to auscultation Airway: Mallampati scale class II Neurological: alert and oriented Last oral intake: 2 hours (water) ASA classification: II Emergent: no Anesthetic plan: proceed Anesthesia type and monitoring: general GIVS and standard monitoring Results Review: All pre-operative results and documents have been reviewed as part of the pre-operative evaluation. Informed Consent: The patient's anesthetic plan and its attendant risks and benefits were discussed with the patient/family/POA. Questions were solicited and answers provided to the satisfaction of the patient/family/POA.
[2023-11-26 12:02] VITALS: BP 125/81; PULSE 82; RESP 17; TEMP 36.6; O2SAT 100
[2023-11-26 12:14] VITALS: BMI 26.4
--- NOTE | 2023-11-26 12:15 | WPDHPUPDATE1 ---
History and Physical Update Update Date/Time: 11/26/23 12:15 Since patient was seen in the GI office. Patient was found to have infectious process with abdominal pain fever. Elevated white count was identified. A CT scan revealed fluid in the intestinal tract consistent with her preparation for colonoscopy. It was presumed she may have had infectious colitis and was treated with broad-spectrum antibiotics. Patient presents today for both colonoscopy and EGD because of abdominal pain history. She has abdominal pain has improved dramatically after her course of antibiotics. She did this. She is much more comfortable today. History and Physical has been reviewed, including an updated exam of the patient. There are NO changes in the patient's condition. Risks, benefits, and alternatives have been discussed and questions answered. Patient agrees to proceed with procedure.
[2023-11-26] MEDS: LACTATED RINGERS 1,000 ML 150 ML IV CONT (12:22)
--- NOTE | 2023-11-26 13:19 | SUR.PREOP ---
pt states drank lots of water and apple juice at 1040. Rn stated it will be up to anesthesia and dr haines because not suppose to drink today. Anesthesia made aware and stated we could wait till 1240 to start her procedure, dr haines agreed.
[2023-11-26 13:24] VITALS: BP 92/56; PULSE 62; RESP 16; O2SAT 98
[2023-11-26 13:34] VITALS: BP 113/71; PULSE 57; RESP 20; O2SAT 99
[2023-11-26 13:44] VITALS: BP 124/69; PULSE 52; RESP 20; O2SAT 100
--- NOTE | 2023-11-26 15:07 | WPDANESPN ---
Anes - Prog Note Post-Op Date/Time: 11/26/23 15:07 Cardiovascular status: normal Respiratory status: normal Airway patency: baseline Mental status: baseline Post-Op hydration status: normal Vital Signs: Last Vital Signs Temp 36.6 C 11/26/23 12:02 Pulse 52 L 11/26/23 13:44 Resp 20 11/26/23 13:44 BP 124/69 11/26/23 13:44 Pulse Ox 100 11/26/23 13:44 O2 Del Method Room Air 11/26/23 13:44 Pain Score (VAS): 0 I/O: Intake & Output 11/25/23 11/26/23 11/26/23 23:59 07:59 15:59 Intake Total 400 Balance 400 Post-procedural complaints: none Patient Feedback: Patient satisfied with anesthetic care. Other Findings: Patient vital signs back to baseline. Patient denies nausea and vomiting. Patient's pain under control. Patient OK for discharge.
== END 2023-11-26 14:07 | disposition home or self-care (01) ==
PROVIDERS: PCP Nurse Practitioner; Visit Provider Internal Medicine Gastroenterology
PROC: 0DJ08ZZ Inspection of Upper Intestinal Tract, Via Natural or Artificial Opening Endoscopic (ICD-10-PCS; CPT 43235; principal; 2023-11-26 12:30)
PROC: 0DJD8ZZ Inspection of Lower Intestinal Tract, Via Natural or Artificial Opening Endoscopic (ICD-10-PCS; CPT 45378; 2023-11-26 12:30)
DX: R10.84 Generalized abdominal pain (principal); D12.5 Benign neoplasm of sigmoid colon; K64.8 Other hemorrhoids
CPT/HCPCS: 45385; 45380; 43239

== ENCOUNTER 2024-01-28 06:55 | Outpatient (CLI) | payer OTHER, SELFPAY ==
--- NOTE | ~2024-01-28 | MR_ITS ---
EXAMINATION: MR abdomen wo/w con DATE: 01/28/2024 07:51 INDICATION: Liver mass TECHNIQUE: Magnetic resonance imaging (MRI) of the abdomen was performed without and with 15 mL Multi vijaya intravenous contrast. Sequences included coronal T2-weighted SS-FSE, coronal and axial FS 2D-F IESTA, axial STIR FSE, axial T2-weighted SS-FSE, axial T2-weighted FS SS-FSE, axial diffusion-weighte d SE, axial dual-echo T1-weighted FSPGR, and axial and coronal T1-weighted LAVA. Postcontrast axial T 1-weighted LAVA images were obtained in a time course. Postcontrast coronal T1-weighted LAVA images w ere obtained. COMPARISON: 11/18/2023 FINDINGS: Heart size is normal. No pericardial or pleural effusion. There has been interval increase in the deg ree of signal dropout throughout the liver consistent with increase in the degree of diffuse hepatic steatosis. There is now a greater degree of conspicuity between the surrounding hepatic steatosis and an approximately 1.5 cm region of focal fatty sparing in segment 4A of the liver seen on series 6, i mage 45 which corresponds in size and location to the hypoechoic region on prior ultrasound which wou ld also be consistent with focal fatty sparing relative to the surrounding more echogenic hepatic wiliam atosis. No other hepatic lesions identified. Gallbladder, spleen, pancreas, bilateral adrenal glands and kidneys are normal. Visualized bowels are unremarkable with no obstruction. No pathologically enl arged abdominal or upper pelvic lymphadenopathy. Bones are unremarkable with normal marrow signal thr oughout. IMPRESSION: 1. Interval increase in diffuse hepatic steatosis with no more conspicuous 1.5 cm region of focal fat ty sparing on the post phase imaging and which corresponds to the lesion of concern on prior ultrasou nd. Appearance on prior ultrasound would also be consistent with focal fatty sparing. No other concer james hepatic lesions identified. Reviewed, dictated and finalized at location B. IMPRESSION: 1. Interval increase in diffuse hepatic steatosis with no more conspicuous 1.5 cm region of focal fatty sparing on the post phase imaging and which correspond s to the lesion of concern on prior ultrasound. Appearance on prior ultrasound would also be consistent with focal fatty sparing. No other concerning hepatic lesions identified.
== END 2024-01-28 06:56 | disposition home or self-care (01) ==
LOC: ANHIMG 06:59
PROVIDERS: Visit Provider Advanced Practice Midwife
DX: R16.0 Hepatomegaly, not elsewhere classified (principal)
CPT/HCPCS: 74183; A9577

== ENCOUNTER 2024-02-25 07:57 | Outpatient (CLI) | payer OTHER, SELFPAY ==
--- NOTE | ~2024-02-25 | NM_ITS ---
EXAMINATION: NM hepatobiliary w pharm DATE: 02/25/2024 10:01 INDICATION: Right abdominal pain. COMPARISON: Abdomen MRI 01/28/2024 TECHNIQUE: 4.6 mCi Tc-99m mebrofenin (Choletec) was administered intravenously. Scintigraphic images of the abdomen were obtained for one hour. Then, 1.4 mcg sincalide (Kinevac) IV was administered, an d imaging was continued for 30 minutes. FINDINGS: There is normal clearance of radiotracer from the blood pool. There is homogeneous tracer u ptake by the liver. Activity progresses to the bowel and gallbladder. Gallbladder ejection fraction (GBEF) was 42%. Note that most patients with gallbladder dysfunction have GBEF < 35%, which overlaps with the broad normal range of 10-90%. IMPRESSION: 1. Normal hepatobiliary scintigraphy. Reviewed, dictated and finalized at location A.
== END 2024-02-25 07:58 | disposition home or self-care (01) ==
LOC: ANHIMG 08:03
PROVIDERS: Visit Provider Nurse Practitioner
DX: R10.31 Right lower quadrant pain (principal)
CPT/HCPCS: 78227; A9537; J2805

== ENCOUNTER 2024-05-27 10:09 | Outpatient (CLI) | payer OTHER, SELFPAY ==
--- NOTE | ~2024-05-27 | MM_ITS ---
EXAMINATION: MM screening priscilla BI w cj HISTORY: Screening TECHNIQUE: Craniocaudal and mediolateral oblique 3-D tomosynthesis images were obtained and synthetic 2-D images were generated. CAD analysis was submitted and interpreted. COMPARISON: No prior mammogram is available for comparison at this institution. BREAST PARENCHYMAL COMPOSITION: Dense: The breasts are extremely dense, which lowers the sensitivity of mammography. FINDINGS: There is an enlarged right axillary lymph node. There are scattered asymmetries of the righ t breast with possible obscured mass superiorly in the right breast on MLO view. There are asymmetrie s laterally in the left breast as well. There are no suspicious calcifications. IMPRESSION: 1. Bilateral breast asymmetries. Enlarged right axillary lymph node. 2. Additional mammographic views and possible breast ultrasound are recommended. BI-RADS Category 0: Incomplete: Needs additional imaging evaluation. Reviewed, dictated and finalized at location B. SERVICE TEAM MEMBER IMPRESSION: 1. Bilateral breast asymmetries. Enlarged right axillary lymph node. 2. Additional mammographic views and possible breast ultrasound are recommended . BI-RADS Category 0: Incomplete: Needs additional imaging evaluation.
== END 2024-05-27 10:10 | disposition home or self-care (01) ==
LOC: ANHIMG 10:14
DX: R92.2 Inconclusive mammogram (principal)
CPT/HCPCS: 77063; 77067

== ENCOUNTER 2024-10-01 11:41 | Outpatient (CLI) | payer OTHER, SELFPAY ==
--- NOTE | ~2024-10-01 | MMUS_ITS ---
EXAMINATION: MM diagnostic priscilla BI w jc, US breast BI complete HISTORY: Follow-up breast asymmetries and right axillary lymph nodes. TECHNIQUE: Additional 3-D tomosynthesis images of the breasts were performed and synthetic 2-D images were generated. CAD analysis was submitted and interpreted. High resolution bilateral complete breas t ultrasound was performed. COMPARISON: No prior studies for comparison. BREAST PARENCHYMAL COMPOSITION: Dense: The breasts are extremely dense, which lowers the sensitivity of mammography. FINDINGS: MAMMOGRAPHIC FINDINGS: There are enlarged right axillary lymph nodes which are denser than expected. There are no suspicious masses, architectural distortion or suspicious calcifications in either breast. ULTRASOUND: Complete US of all 4 quadrants of the breast/s and retroareolar region was reviewed. Normal heterogen eous echotexture without focal solid or cystic mass. There are enlarged bilateral axillary lymph node s, largest measuring approximately 4 cm. These lymph nodes nodes retain their normal fatty hilum. IMPRESSION: 1. Enlarged bilateral axillary lymph nodes, likely reactive. No evidence for malignancy in either rolo ast. 2. Recommend 6 month follow-up bilateral axillary ultrasound. BI-RADS category 3, probably benign findings. Reviewed, dictated and finalized at location A. IMPRESSION: 1. Enlarged bilateral axillary lymph nodes, likely reactive. No evidence for ma lignancy in either breast. 2. Recommend 6 month follow-up bilateral axillary ultrasound. BI-RADS category 3, probably benign findings.
== END 2024-10-01 11:42 | disposition home or self-care (01) ==
PROVIDERS: PCP Nurse Practitioner
DX: R92.8 Other abnormal and inconclusive findings on diagnostic imaging of breast (principal)
CPT/HCPCS: 76641; 77062; 77066; G0279

== ENCOUNTER 2025-03-09 17:38 | Emergency (ER) | payer MEDICAID, SELFPAY ==
[2025-03-09] VITALS (36 sets, daily range): BP systolic 100–136; BP diastolic 52–77; PULSE 72; RESP 16; TEMP 36.6; O2SAT 94–100
--- NOTE | ~2025-03-09 | US_ITS ---
US OB <= 14 weeks fetus INDICATION:vaginal bleeding, abdominal pain, passed clot COMPARISON: None. TECHNIQUE: Transabdominal ultrasound of the pelvis was performed. FINDINGS: The uterus measures 9.2 x 5.7 x 7.5 cm. There is a single intrauterine with estimated gestational age of 6 weeks 5 days. No cardiac activity detected. This may be due to early . The right ovary measures 3.8 x 1.5 x 2.6 cm. The left ovary measures 2.4 x 1.9 x 1.9 cm. The ovaries are normal in appearance. No adnexal masses are seen. No pelvic fluid or mass is seen. IMPRESSION: Single intrauterine with estimated gestational age of 6 weeks 5 days with no cardiac activity. This may be due to early in . Correlation with beta-hCG and follow-up with social welfare research worker is recommended. Reviewed, dictated and finalized at location S. IMPRESSION: Single intrauterine with estimated gestational age of 6 weeks 5 days with no cardiac activity. This may be due to early in . Correlation wi th beta-hCG and follow-up with social welfare research worker is recommended.
--- NOTE | 2025-03-09 19:27 | ED_ITS ---
HPI - General Chief complaint: Vaginal Bleeding Stated complaint: vag bleed, approx 12 weeks Time Seen by Provider: 03/09/25 17:56 History of Present Illness HPI Narrative: Patient is a 44-year-old non-Tongan speaking female who presents to the ER with vaginal bleeding and abdominal cramping during . She reports she has pain to her bilateral flanks that radiates down to her lower abdomen. Patient reports her symptoms started today. She denies any recent fevers, nausea, or vomiting. Patient does endorse mild burning and urgency with urination. She reports she passed a plum sized clot earlier today but now notices pink tinges on toilet paper when she wipes. Patient endorses a history a kidney infection, induced hyperglycemia, and 11 previous pregnancies. Related Data Home Medications ?Medication ?Instructions ?Recorded ?Confirmed ?Last Taken ?Type ergocalciferol (vitamin D2) 1,250 1,250 mcg PO DIRE CTED 11/06/23 11/26/23 Unknown History mcg (50,000 unit) capsule Allergies Allergy/AdvReac Type Severity Reaction Status Date / Time No Known Allergies Allergy Verified 03/09/25 17:44 Review of Systems 2 Review of Systems: All systems reviewed & are unremarkable except as noted in HPI and below PMFSH Past Medical History Medical History GERD (gastroesophageal reflux disease) NAFLD (nonalcoholic fatty liver disease) Family History Family History Other Unknown family medical history Social History Social History Smoking status: Never smoker Substance use: never Substance use type: does not use Do You Feel Safe in your Home?: Yes Lack of Transportation: No Lack of Food: Never True Current Housing: I Have Housing Concerned About Future Housing: No Difficulty Paying Gas/Electric Bills: No Difficulty Paying for Meds: No Currently Unemployed: No Education: High School Diploma/GED Difficulty w/ Childcare or Family Care: No Living arrangements: with family Gender identity (if verbalized by the patient): Female Spiritual care concerns: No Exam 2 Narrative: GENERAL: Well appearing, well-nourished, non-toxic, in no acute distress. HEAD: Normocephalic, atraumatic. NECK: Supple. No adenopathy, no masses. RESPIRATORY: Airway patent, respirations nonlabored. Clear to auscultation bilaterally, no rales, rhonchi, wheezing. CARDIOVASCULAR: Regular rate and rhythm without murmurs, rubs, or gallops. Peripheral pulses 2+ and equal bilaterally. ABDOMINAL: Soft, nontender, nondistended, no hepatosplenomegaly. Normoactive BS. MUSCULOSKELETAL: Moves all extremities. Strength/ROM intact without gross deformities. SKIN: Warm, dry, normal color. No rashes. NEURO: A&O X3. Speech clear. Cranial nerves II-XII intact. No ataxic movements. PSYCHIATRIC: Appropriate mood and affect. Normal interaction. Course Vital Signs Vital signs: Vital Signs Temperature 36.6 C 03/09/25 17:39 Pulse Rate 72 03/09/25 17:39 Respiratory Rate 16 03/09/25 17:39 Blood Pressure 129/75 03/09/25 17:39 Pulse Oximetry 100 03/09/25 17:39 Oxygen Delivery Room Air 03/09/25 17:39 Temperature 36.6 C 03/09/25 17:39 Pulse Rate 72 03/09/25 17:39 Respiratory Rate 16 03/09/25 17:39 Blood Pressure 129/60 03/09/25 20:20 Pulse Oximetry 100 03/09/25 20:20 Oxygen Delivery Room Air 03/09/25 17:39 MDM - OB/Uterine Contractions MDM Narrative Medical decision making narrative: Patient is a 44-year-old non-Tongan speaking female who presents to the ER with vaginal bleeding and abdominal cramping during . She reports she has pain to her bilateral flanks that radiates down to her lower abdomen. Patient reports her symptoms started today. She denies any recent fevers, nausea, or vomiting. Patient does endorse mild burning and urgency with urination. She reports she passed a plum sized clot earlier today but now notices pink tinges on toilet paper when she wipes. Patient endorses a history a kidney infection, induced hyperglycemia, and 11 previous pregnancies. She reports she has her 1st OB appointment tomorrow with Dr. Mccarthy. Labs Ordered: CBC, CMP, beta hCG, UA, PTT, INR Imaging Ordered: Ultrasound Ob less than 14 weeks Medications Ordered: None necessary Results: Pt's US indicates Single intrauterine with estimated gestational age of 6 weeks 5 days with no cardiac activity. This may be due to early in . Correlation with beta-hCG and follow-up with signals intelligence analysis manager is recommended. Patient's hCG was 9741 Diagnosis: hematuria, threatened miscarriage Consults: OBGYN (outpatient), Dr. Mccarthy, appointment set up for tomorrow Patient Education/Shared MDM: Results of lab work and imaging shared with patient and her . She continues to decline pain medication. Patient strongly advised to maintain hydration status upon discharge and follow-up with her OBGYN tomorrow as planned. She will not be discharged home with any new prescriptions but was advised to take Tylenol as needed for pain control. Strict return precautions provided. Patient verbalized understanding and is in agreement with plan. Vital signs stable at time of discharge. All questions answered. Differential Diagnosis Differential diagnosis: Likely other (Threatened miscarriage, urinary tract infection, hematuria) Lab Data Attestation: I reviewed the patient's lab results. 03/09/25 19:53 03/09/25 19:53 Labs: Lab Results 03/09/25 Range/Units 19:53 WBC 6.7 (4.5-10.0) K/mm3 RBC 4.29 (4.2-5.4) M/mm3 Hgb 11.7 L (12.0-15.0) g/dL Hct 36.4 L (37.0-47.0) % MCV 84.8 (80-100) fl MCH 27.3 (26-34) pg MCHC 32.1 (32-36) g/dl RDW 12.2 (11.5-14.5) % Plt Count 306 (150-375) k/mm3 MPV 9.1 (7.4-10.4) fl Immature Gran % (Auto) 0.3 (0-0.5) % Neut % (Auto) 64.3 (45.5-73.1) % Lymph % (Auto) 27.4 (18.3-44.2) % [place] % (Auto) 4.6 (2.6-8.5) % Eos % (Auto) 3.0 (0-4.4) % Baso % (Auto) 0.4 (0.2-1.2) % Lymph # (Auto) 1.84 (0.9-3.2) K/mm3 [place] # (Auto) 0.3 (0.1-0.6) K/mm3 Eos # (Auto) 0.2 (0-0.3) K/mm3 Baso # (Auto) 0.0 (0.0-0.1) K/mm3 Abs Immat Gran (auto) 0.02 (0.00-0.031) K/mm3 Absolute Neuts (auto) 4.3 (1.3-6.7) K/mm3 Absolute Nucleated RBC 0.000 (0.0-0.012) K/mm3 Nucleated RBC % 0.0 (0.0-0.2) % PT 12.7 (11.1-14.7) Seconds INR 0.9 APTT 32.0 (22.3-36.8) Seconds Sodium 137 (137-145) mmol/L Potassium 3.6 (3.4-5.0) mmol/L Chloride 104 (98-107) mmol/L Carbon Dioxide 25 (22-30) mmol/L Anion Gap 8 (4-12) mmol/L BUN 17 (7-17) mg/dL Creatinine 0.60 L (0.7-1.0) mg/dL Estim Creat Clear Calc 94 ml/min Estimated GFR > 60 (59 - ) Glucose 120 H (65-110) mg/dL Calcium 8.7 (8.4-10.2) mg/dL Total Bilirubin 0.1 L (0.2-1.3) mg/dL AST 22 (14-36) U/L ALT 20 (6-35) U/L Alkaline Phosphatase 61 (38-126) U/L Total Protein 7.2 (6.3-8.2) g/dL Albumin 4.2 (3.5-5.1) g/dL Beta HCG, Quant 9741.60 mIU/ML Urine Color Yellow (Yellow) Urine Appearance Turbid H (Clear) Urine pH 7.0 (5.0-9.0) Ur Specific [place] 1.016 (1.001-1.035) Urine Protein Negative (Negative) mg/dL Urine Glucose (UA) Negative (Negative) mg/dL Urine Ketones Negative (Negative) mg/dL Ur Blood (Man) 2+ H (Negative) Urine Nitrate Negative (Negative) Urine Bilirubin Negative (Negative) Urine Urobilinogen 0.2 (<2.0) mg/dL Leukocyte Esterase Rfl Trace H (Negative) CORBIN/UL Urine RBC 3-5 H (0-2) /hpf Urine WBC 0-5 (0-3) /hpf Ur Squamous Epith Cells Occasional (Few) /hpf Urine Bacteria None seen /hpf Urine Casts 0-2 Blood Type O Positive Antibody Screen Negative Screen TNP Baby's Blood Type Not Reportable Baby's KEITH Not Reportable Doses of RhIg Required 0 Imaging Data Attestation: I personally reviewed and interpreted this imaging study as follows: Radiologist's impression: Impressions Ultrasound 03/09/25 21:29 IMPRESSION: Single intrauterine with estimated gestational age of 6 weeks 5 days with no cardiac activity. This may be due to early in . Correlation with beta-hCG and follow-up with signals intelligence analysis manager is recommended. Discharge Plan Discharge Clinical Impression: Threatened , Hematuria, Vaginal bleeding Patient Disposition: Home Condition: Stable Instructions: Antibiotic Form, Threatened Miscarriage (ED) Additional Instructions: Please return to the ER with any worsening symptoms. Follow-up with your OBGYN tomorrow as planned. Please take Tylenol as needed for pain control. Remember to drink lots of water. Patient Language: Italian Prescriptions: No Action omeprazole 20 mg capsule,delayed release(DR/EC) 20 mg PO DAILY Qty: 30 6RF ondansetron 4 mg tablet,disintegrating 4 mg PO Q8H PRN (Reason: nausea and vomiting) Qty: 14 0RF ergocalciferol (vitamin D2) 1,250 mcg (50,000 unit) capsule 1,250 mcg PO DIRECTED Follow-up/Referrals: Santiago Mccarthy MD [Primary Care Provider, ELECTRIC DISTRIBUTION ENGINEER] Time of Disposition: 23:11
[2025-03-09] MEDS: SODIUM CHLORIDE 0.9% IV 1,000 ML 999 ML IV CONT (20:05)
[2025-03-09 20:11] LABS: Add Urine Microscopic? YES; Appearance Urine Turbid (Clear); Glucose Urine UA Negative (Negative); Leukocyte Esterase Ur Trace LEU/UL (Negative); Nitrate Urine Negative (Negative); Non Pathogenic Casts 0-2; Specific Grav Ur 1.016 (1.001-1.035)
[2025-03-09 20:14] LABS: Hematocrit 36.4 % (37.0-47.0); Hemoglobin 11.7 g/dL (12.0-15.0); Immature Granulocyte Percent A 0.3 % (0-0.5); Lymphocytes Absolute Auto 1.84 K/mm3 (0.9-3.2); Mean Corpuscular HGB Conc 32.1 g/dl (32-36); Mean Corpuscular Hemoglobin 27.3 pg (26-34); Mean Corpuscular Volume 84.8 fl (80-100); Nucleated Red Blood Cells Absolute Auto 0.000 K/mm3 (0.0-0.012); Nucleated Red Blood Cells Perc 0.0 % (0.0-0.2); Platelet Count Result 306 k/mm3 (150-375); Red Blood Count 4.29 M/mm3 (4.2-5.4); White Blood Count 6.7 K/mm3 (4.5-10.0)
[2025-03-09 20:15] LABS: Alanine Aminotransferase 20 U/L (6-35); Albumin Level 4.2 g/dL (3.5-5.1); Alkaline Phosphatase 61 U/L (38-126); Anion Gap 8 mmol/L (4-12); Aspartate Amino Transferase 22 U/L (14-36); Bilirubin,Total 0.1 mg/dL (0.2-1.3); Blood Urea Nitrogen 17 mg/dL (7-17); Calcium 8.7 mg/dL (8.4-10.2); Carbon Dioxide 25 mmol/L (22-30); Chloride 104 mmol/L (98-107); Estimated CRCL calculation 94 ml/min; Estimated Glomerular Filt Rate > 60; Glucose 120 mg/dL (65-110); Potassium 3.6 mmol/L (3.4-5.0); Sodium 137 mmol/L (137-145); Total Protein 7.2 g/dL (6.3-8.2)
[2025-03-09 20:18] LABS: INR 0.9; Prothrombin Time 12.7 Seconds (11.1-14.7)
[2025-03-09 20:20] LABS: Partial Thromboplastin Time 32.0 Seconds (22.3-36.8)
--- OUTSIDE RECORDS SUMMARY | 2025-03-09 20:26 | XMS_ITS | Data Portability ---
Author Organization [facility] Address [address] [place] [place] [address] Care Team Providers Care Proposal Lead Writer Name Role Phone KINGSTON CARRASQUILLO (FP) Primary Care Provider [phone] Assessment Encounter Date Assessment Date Assessment LastModified by Organization Details LastModified Time 07/04/2023 07/04/2023 Patient is __38_weeks . Discussed plan. Not available 07/04/2023 11:16:24 Plan of Treatment Reminders Order Date Submit Date Provider Last Modified By Organization Details Last Modified Time Details Appointments U/S OB SNEAK PEAK 2024 10:00A M ULTRASOUND Not available Not available Not available OB SCREEN 2024 02:30P M Garima MCCARTHY MD Not available Not available Not available Lab None recorde d. Referral None recorde d. Procedures None recorde d. Surgeries None recorde d. Imaging US, obstetr ic, biophys ical profile + non-str ess test 2023 024 [email or web address] [address], [address], [place], [address], 07/04/2023 17:37:55 non-str ess test 2023 024 [email or web address] [address], [address], [place], [address], 07/08/2023 13:42:23 non-str ess test 2023 024 [email or web address] [address], [address], [place], [address], 06/30/2023 11:32:47 Medication Orders None recorde d. Patient TargetsNo targets recorded. Patient InstructionsNo instructions recorded. Reason for Referral None Reported. Results Created Date Observation Date Name Description Value Unit Range Abnormal Flag Note LastModifiedBy Organization Detail LastModifiedTime 06/20/19 24 06/20/2023 CULTU RE: GROUP B STREP SCREE N result report SEE RESULT S BELOW Test: Cultu re: Group B Strep Scree n - Vagin al/Re ctal Speci men Sourc e: Vagin a/Rec juan carlos Speci men Type: Vagin al/Re ctal Speci men Date: 024 1:50 PM Resul t Date: 024 4:23 PM Resul t Statu s: Final resul t Abnor mal: No Resul ting Lab: [facility] [address] [facility] [address] Tel: CULTU RE ----- ----- ----- --- No Group B strep isola reji at 2 days (gia ctive broth enhan cemen t) Not Available [facility] (Lab) [address] [facility], [place], [address], 06/23/2023 17:26:12 09/03/19 24 09/03/2023 CBC W/DIF F WBC 6.1 10'3/ uL 3.5-[address] [facility] (Lab) [address] [place], [address], 09/04/2023 05:16:30 09/03/19 24 09/03/2023 CBC W/DIF F RBC 4.32 10'6/ uL (based on docume nted legal sex) 3.80-[address] [facility] (Lab) [address] [facility], [place], [address], 09/04/2023 05:16:30 09/03/19 24 09/03/2023 CBC W/DIF F HGB 12.4 g/dL (based on docume nted legal sex) 11.6-[address] [facility] (Lab) [address], [place], [address], 09/04/2023 05:16:30 09/03/19 24 09/03/2023 CBC W/DIF F HCT 38.1 % (based on docume nted legal sex) 34.0-[address] [facility] (Lab) [address], [place], [address], 09/04/2023 05:16:30 09/03/19 24 09/03/2023 CBC W/DIF F MCV 88.2 fL 80.0-[address] [facility] (Lab) [address], [place], [address], 09/04/2023 05:16:30 09/03/19 24 09/03/2023 CBC W/DIF F MCH 28.7 pg 27.0-[address] [facility] (Lab) [address], [place], [address], 09/04/2023 05:16:30 09/03/19 24 09/03/2023 CBC W/DIF F MCHC 32.5 g/dL 32.0-[address] [facility] (Lab) [address], [place], [address], 09/04/2023 05:16:30 09/03/19 24 09/03/2023 CBC W/DIF F RDW 13.1 % 11.0-[address] [facility] (Lab) [address] [place], [address], 09/04/2023 05:16:30 09/03/19 24 09/03/2023 CBC W/DIF F plt 336 10'3/ uL 150-[address] [facility] (Lab) [address], [place], [address], 09/04/2023 05:16:30 09/03/19 24 09/03/2023 CBC W/DIF F MPV 10.1 fL 8.8-[address] [facility] (Lab) [address] [facility], [place], [address], 09/04/2023 05:16:30 09/03/19 24 09/03/2023 CBC W/DIF F NRBC's 0.0 % 0.[address] [facility] (Lab) [address] [facility], [place], [address], 09/04/2023 05:16:30 09/03/19 24 09/03/2023 CBC W/DIF F absolute NRBCs 0.0 10'3/ uL no refere nce range establ ished Not Available [facility] (Lab) [address] [facility], [place], [address], 09/04/2023 05:16:30 09/03/19 24 09/03/2023 CBC W/DIF F neutrophils 55.7 % 34.0-[address] [facility] (Lab) [address] [facility], [place], [address], 09/04/2023 05:16:30 09/03/19 24 09/03/2023 CBC W/DIF F lymphocytes 36.1 % 15.0-[address] [facility] (Lab) [address] [facility], [place], [address], 09/04/2023 05:16:30 09/03/19 24 09/03/2023 CBC W/DIF F monocytes 4.8 % 1.0-[address] [facility] (Lab) [address] [facility], [place], [address], 09/04/2023 05:16:30 09/03/19 24 09/03/2023 CBC W/DIF F eosinophils 2.1 % 0.0-8. [address] [facility] (Lab) [address] [facility], [place], [address], 09/04/2023 05:16:30 09/03/19 24 09/03/2023 CBC W/DIF F basophils 0.8 % 0.0-2. [address] [facility] (Lab) [address] [facility], [place], [address], 09/04/2023 05:16:30 09/03/19 24 09/03/2023 CBC W/DIF F immature granulocytes 0.5 % no define d refere nce range Not Available [facility] (Lab) [address] [facility], [place], [address], 09/04/2023 05:16:30 09/03/19 24 09/03/2023 CBC W/DIF F absolute neutrophils 3.4 10'3/ uL 1.5-8. [address] [facility] (Lab) [address] [facility], [place], [address], 09/04/2023 05:16:30 09/03/19 24 09/03/2023 CBC W/DIF F absolute lymphocytes 2.2 10'3/ uL 1.0-4. [address] [facility] (Lab) [address] [facility], [place], [address], 09/04/2023 05:16:30 09/03/19 24 09/03/2023 CBC W/DIF F absolute monocytes 0.3 10'3/ uL 0.2-1. [address] [facility] (Lab) [address] [place], [address], 09/04/2023 05:16:30 09/03/19 24 09/03/2023 CBC W/DIF F absolute eosinophils 0.1 10'3/ uL 0.0-0. [address] [facility] (Lab) [address] [place], [address], 09/04/2023 05:16:30 09/03/19 24 09/03/2023 CBC W/DIF F absolute basophils 0.1 10'3/ uL 0.0-0. [address] [facility] (Lab) [address] [facility], [place], [address], 09/04/2023 05:16:30 09/03/19 24 09/03/2023 CBC W/DIF F absolute immature granulocytes 0.0 10'3/ uL 0.00-0 .10 2023 3:49 AM: P indic ates parti al resul ts on a panel have been relea sed. Addit ional resul ts will follo w. 2023 3:49 AM: This resul t has been final verif ied. No addit ional or platt ed resul ts are expec reji. Not Available [facility] (Lab) [address], [place], [address], 09/04/2023 05:16:30 09/03/19 24 09/03/2023 MAGNE SIUM, SERUM magnesium 1.9 mg/dL 1.7-2. [address] [facility] (Lab) [address] [facility], [place], [address], 09/04/2023 05:16:30 09/03/19 24 09/03/2023 VITAM IN B12 / FOLAT E PANEL vitamin B12 722 pg/mL 180-91 4 Ariane l Range : 180-9 14 pg/mL . Indet ermin ate Range : 145-1 80 pg/mL . Defic ient Range : <=145 pg/mL . Not Available [facility] (Lab) [address] [facility], [place], [address], 09/04/2023 05:16:31 09/03/19 24 09/03/2023 VITAM IN B12 / FOLAT E PANEL folate, serum 19.3 NG/mL 6.0-[address] [facility] (Lab) [address] [facility], [place], [address], 09/04/2023 05:16:31 09/03/19 24 09/03/2023 VITAM IN D, 25-OH (TOTA L D2/D3 ) vitamin D, 25-hydroxy, total 14.9 NG/mL 30.0-1 00.0 low Sugge stive of Defic iency : <20 ng/mL Sugge stive of Insuf ficie ncy: 20-29 ng/mL Sugge stive of Suffi cienc y: 30-10 0 ng/mL Sugge stive of Toxic ity: >150 ng/mL Not Available [facility] (Lab) [address], [place], [address], 09/04/2023 05:16:31 05/30/19 24 05/30/2023 US, obste tric, follo w-up No observ ation record ed. [facility] [address], [place], [address], 05/30/2023 11:19:01 05/30/19 24 05/30/2023 US, olga lidia lehman, bioph ysica l profi le + non-s tress test No observ ation record ed. [facility] [address], [place], [address], 05/30/2023 11:19:11 05/30/19 24 05/30/2023 US, obste tric, follo w-up No observ ation record ed. [address]berto [address] [facility], [place], [address], 06/01/2023 21:23:54 05/30/19 non-s tress test No observ ation record ed. [email or web address] Not Available 05/30 10:54:26 05/30/19 24 05/30/2023 non-s tress test No observ ation record ed. [email or web address] Glennie [address], [place], [address], 05/30/2023 14:20:32 06/06/19 non-s tress test No observ ation record ed. [email or web address] Not Available 06/06 10:32:16 06/06/19 24 06/06/2023 non-s tress test No observ ation record ed. [email or web address] Glennie [address], [place], [address], 06/06/2023 18:59:17 06/06/19 24 06/06/2023 US, obste tric, bioph ysica l profi le + non-s tress test No observ ation record ed. urszula Cruz [address], [place], [address], 06/06/2023 17:45:33 06/06/19 24 06/06/2023 US, obste tric, bioph ysica l profi le + non-s tress test No observ ation record ed. [facility] [address], [place], [address], 06/06/2023 17:40:00 06/13/19 24 06/13/2023 US, obste tric, bioph ysica l profi le + non-s tress test No observ ation record ed. [facility] [address], [place], [address], 06/13/2023 15:29:08 06/13/19 24 06/13/2023 US, obste tric, bioph ysica l profi le + non-s tress test No observ ation record ed. [email or web address] [address], [place], [address], 06/14/2023 22:14:28 06/13/19 24 06/13/2023 non-s tress test No observ ation record ed. [email or web address] [address], [place], [address], 06/13/2023 11:22:21 06/13/19 non-s tress test No observ ation record ed. [email or web address] Not Available 06/13 11:38:17 06/20/19 24 06/20/2023 US, obste tric, bioph ysica l profi le + non-s tress test No observ ation record ed. [facility] [address], [place], [address], 06/20/2023 16:46:28 06/20/19 24 06/20/2023 US, obste tric, bioph ysica l profi le + non-s tress test No observ ation record ed. [email or web address] [address], [place], [address], 06/20/2023 17:06:58 06/20/19 non-s tress test No observ ation record ed. [email or web address] Not Available 06/20 11:31:00 06/20/19 24 06/20/2023 non-s tress test No observ ation record ed. [email or web address] [address], [place], [address], 06/20/2023 17:01:32 06/27/19 24 06/27/2023 US, obste tric, follo w-up No observ ation record ed. [email or web address] [address], [place], [address], 06/27/2023 11:08:21 06/27/19 24 06/27/2023 non-s tress test No observ ation record ed. [email or web address] [address]ie [address], [place], [address], 06/27/2023 15:37:13 06/27/19 24 06/27/2023 US, obste tric, follo w-up No observ ation record ed. [facility] [address], [place], [address], 06/27/2023 17:43:33 06/27/19 24 06/27/2023 US, obste tric, bioph ysica l profi le + non-s tress test No observ ation record ed. [facility] [address], [place], [address], 06/27/2023 17:43:44 06/27/19 24 non-s tress test No observ ation record ed. [email or web address] Not Available 06/27 13:33:34 07/04/19 24 07/04/2023 US, obste tric, bioph ysica l profi le + non-s tress test No observ ation record ed. [facility] [address], [place], [address], 07/04/2023 16:15:06 07/04/19 24 07/04/2023 US, obste tric, bioph ysica l profi le + non-s tress test No observ ation record ed. [email or web address] [address] [facility], [place], [address], 07/04/2023 23:08:32 07/04/19 24 07/04/2023 non-s tress test No observ ation record ed. [email or web address] [address], [place], [address], 07/04/2023 19:27:04 07/04/19 24 non-s tress test No observ ation record ed. Not Available 07/04 12:57:28 09/12/19 24 09/12/2023 US, abdom en, compl ete No observ ation record ed. [email or web address] [place] [address] [address], [place], [address], 09/19/2023 13:28:43 01/28/20 24 01/28/2024 MRI, abdom en, w/wo contr ast No observ ation record ed. [email or web address] [facility] [address], [place], [address], 02/03/2024 15:44:02 Result Notes None recorded. Problems Name Problem SNOMED Code Status Onset Date Resolution Date Notes Provider Name and Address Organization Details Recorded Time Multigra lesa of advanced maternal age 873288036 Completed normal NIPT Carolyn Warnertiemak l null, [facility] 1 12:59:06 Genital herpes simplex 41721402 Completed valtrex at 36 weeks - 09/13 sent [facility] 12:59:06 Advanced maternal age 740476284 Completed 36wks antenata l testing Ivan Brenner [facility], [facility] 4 14:07:22 Past pregnanc y history of gestatio nal diabetes mellitus 319661758 Completed elevated Hga1c early 20 week GCT elevated , checking bs Izabelaisis Brenner [facility], [facility] 4 14:07:22 Herpes simplex 66729691 Completed plan valtrex at 36 weeks Jimbokae HansenElidia [facility] 4 14:07:22 Multigra lesa 349695134 Completed Ivan Elidia [facility], [facility] 4 14:07:22 Rubella non-immu ne 360854011 Completed MMR PP Jimbokae HansenElidia [facility] 4 14:07:22 Chronic hyperten ata in obstetri c context 1635154 Completed ASA QD Jimbokae HansenElidia [facility] 4 14:07:22 Blood glucose outside referenc e range 356292132 Completed 1hr GCT 150 - pt checking bs Ivan fritz, [facility] 4 14:07:22 Speciali fanny medical examinat ion Completed 201406/06/2020 Gynecolo gical Examinat ion;Gerson rded Elsewher e: No Locat ion: [facility] S ource: EHR Wallpaper Remover Steam arleen: N Practi ce ID: 0001 Lukasz lable Time: 03:00:00 PM Gege Figueroa MD [address], [place], [address], [facility] 12:32:39 Amenorrh ea 74024418 Completed 201406/06/2020 Absence of menstrua tion;Rec orded Elsewher e: No Locat ion: [facility] S ource: EHR Wallpaper Remover Steam arleen: N Practi ce ID: 0001 Lukasz lable Time: 03:00:00 PM Gege Figueroa MD [address], [place], [address], [facility] 1 12:31:10 Ultrason ography Completed 201406/06/2020 Antenata l screenin g for malforma tion using ultrason ics;Prac diogo ID: 0001 Gege Figueroa MD [address], [place], [address], [facility] 12:32:48 Antenata l screenin g Completed 201406/06/2020 Antenata l screenin g for malforma tion using ultrason ics;Prac digoo ID: 0001 Gege Figueroa MD [address], [place], [address], [facility] 12:31:13 Congenit al malforma tion 002535221 Completed 201406/06/2020 Antenata l screenin g for malforma tion using ultrason ics;Prac diogo ID: 0001 Gege Figueroa MD [address], [place], [address], [facility] 12:31:18 anatomy study Completed 201406/06/2020 [facility] ANATMC SURVEY;P francoise ID: 0001 Gege Figueroa MD [address], [place], [address], [facility] 12:31:45 Routine antenata l care Completed 201406/06/2020 Supervis ion of other normal pregnanc y;Record ed Elsewher e: No [facility] S ource: EHR Wallpaper Remover Steam arleen: N Practi ce ID: 0001 Lukasz lable Time: 04:00:00 PM Gege Figueroa MD [address], [place], [address], [facility] 12:32:25 Threaten ed prematur e labor - not delivere d 157074061 Completed 201406/06/2020 THRT KARIN LABOR-AN TEPART;P ractice ID: 0001 Gege Figueroa MD [address], [place], [address], [facility] 12:32:42 False labor at or after 37 complete d weeks of gestatio n 744274450 Completed 201406/06/2020 THREAT LABOR NEC-ANTE PAR;Prac diogo ID: 0001 Gege Figueroa MD [address], [place], [address], [facility] 12:31:41 Delivery normal 73573070 Completed 201406/06/2020 NORMAL DELIVERY ;Practic e ID: 0001 Gege Figueroa MD [address], [place], [address], [facility] 01/19/202 1 12:31:43 Lochia finding Completed 201406/06/2020 Encounte r for routine postpart um follow-u p;Record ed Elsewher e: No [facility] S ource: EHR Wallpaper Remover Steam arleen: N Practi ce ID: 0001 Lukasz lable Time: 11:30:00 AM Gege Figueroa MD [address], [place], [address], [facility] 1 12:32:17 Insertio n of intraute rine contrace ptive device Completed 201406/06/2020 Encounte r for insertio n of IUD;Gerson rded Elsewher e: No Locat ion: Brandee heredia [facility] S ource: EHR Wallpaper Remover Steam arleen: N Practi ce ID: 0001 Lukasz lable Time: 11:30:00 AM Gege Figueroa MD [address], [place], [address], [facility] 1 12:32:12 Contrace ptive sheath status 467441168 Completed 201406/06/2020 Encounte r for routine checking of intraute rine contrace p dev;Prac diogo ID: 0001 Gege Figueroa MD [address], [place], [address], [facility] [address] 12:31:[address] Concept Completed 201506/06/2020 Encntr for general adult medical exam w/o abnormal findings ;Recorde d Elsewher e: No Locat ion: [facility] S ource: EHR Wallpaper Remover Steam arleen: N Practi ce ID: 0001 Lukasz lable Time: 09:00:00 AM Gege Figueroa MD [address], [place], [address], [facility] 1 12:32:35 Abdomina l pain 86465534 Completed 201506/06/2020 Abdomina l pain;Rec orded Elsewher e: No Locat ion: [facility] S ource: EHR Wallpaper Remover Steam arleen: N Practi ce ID: 0001 Lukasz lable Time: 09:00:00 AM Gege Figueroa MD [address], [place], [address], [facility] [address] 12:31:[address] Concept Completed 201506/06/2020 Encntr for cryptologic supervisor exam (general ) (routine ) w/o abn findings ;Practic e ID: 0001 Gege Figueroa MD [address], [place], [address], [facility] 12:32:37 Rubella screenin g status 975388966 Completed 201806/06/2020 Encounte r for antenata l screenin g, unspecif ied;Gerson rded Elsewher e: No [facility] S ource: EHR Wallpaper Remover Steam arleen: N Anati ce ID: 0001 Lukasz lable Time: 11:00:00 AM Gege Figueroa MD [address], [place], [address], [facility] 12:32:28 Normal pregnanc y in multigra lesa [id number] 23093 Completed 201806/06/2020 Encounte r for suprvsn of normal pregnanc y, third trimeste r;Record ed Elsewher e: No Locat ion: [facility] S ource: EHR Wallpaper Remover Steam arleen: N Practi ce ID: 0001 Lukasz lable Time: 10:45:00 AM Gege Figueroa MD [address], [place], [address], [facility] 12:32:52 Gestatio n period, 33 weeks 96088107 Completed 201806/06/2020 33 weeks gestatio n of pregnanc y;Record ed Elsewher e: No Locat ion: [facility] S ource: EHR Wallpaper Remover Steam arleen: N Practi ce ID: 0001 Lukasz lable Time: 10:15:00 AM MD [address], [place], [address], [facility] 1 12:31:50 Uterine size for dates discrepa ncy Completed 201806/06/2020 Uterine size-morenita e discrepa ncy, third trimeste r;Record ed Elsewher e: No Locat ion: [facility] S ource: EHR Wallpaper Remover Steam arleen: N Practi ce ID: 0001 Lukasz lable Time: 10:15:00 AM Gege Figueroa MD [address], [place], [address], [facility] 1 12:32:56 Antenata l screenin g for malforma tion Completed 201806/06/2020 Encounte r for antenata l screenin g for malforma tions;Re corded Elsewher e: No Locat ion: [facility] S ource: EHR Wallpaper Remover Steam arleen: N Practi ce ID: 0001 Lukasz lable Time: 10:45:00 AM MD [address], [place], [address], [facility] 12:31:16 Finding of contents of cervix 836350558 Completed 201806/06/2020 Weeks of gestatio n of pregnanc y not specifie d;Practi ce ID: [address], [place], [address], [facility] 12:31:48 Gestatio n period, 34 weeks 05149312 Completed 201806/06/2020 34 weeks gestatio n of pregnanc y;Practi ce ID: [address], [place], [address], [facility] 12:31:52 Gestatio n period, 35 weeks 05672164 Completed 201806/06/2020 35 weeks gestatio n of pregnanc y;Record ed Elsewher e: No Locat ion: [facility] S ource: EHR Wallpaper Remover Steam arleen: N Practi ce ID: 0001 Lukasz lable Time: 11:00:00 AM Gege Figueroa MD [address], [place], [address], [facility] 12:31:[address] Concept Completed 201806/06/2020 Matern care for abnlt fetl hrt rate or rhym, 3rd tri, unsp;Rec orded Elsewher e: No [facility] S ource: EHR Wallpaper Remover Steam arleen: N Practi ce ID: 0001 Lukasz lable Time: 09:30:00 AM Gege Figueroa MD [address], [place], [address], [facility] 12:32:32 Gestatio n period, 36 weeks [id number] Completed 201806/06/2020 36 weeks gestatio n of pregnanc y;Record ed Elsewher e: No Locat ion: [facility] S ource: EHR Wallpaper Remover Steam arleen: N Practi ce ID: [id number] Lukasz lable Time: 08:30:00 AM Gege Figueroa MD [address], [place], [address], [facility] 12:31:57 Gestatio n period, 37 weeks [id number] Completed 201806/06/2020 37 weeks gestatio n of pregnanc y;Practi ce ID: [id number] Gege Figueroa MD [address], [place], [address], [facility] 12:31:59 Gestatio nal diabetes mellitus [id number] Completed 201806/06/2020 Gestatio nal diabetes mellitus in pregnanc y, diet controll ed;Recor ded Elsewher e: No Locat ion: [facility] S ource: EHR Wallpaper Remover Steam arleen: N Practi ce ID: [id number] Lukasz lable Time: 09:30:00 AM Gege Figueroa MD [address], [place], [address], [facility] 12:32:09 Rigid perineum affectin g pregnanc y [id number] Completed 201806/06/2020 Maternal care for abnlt of vulva and perineum , third tri;Prac diogo ID: [id number] Gege Figueroa MD [address], [place], [address], [facility] 12:32:22 Labor and delivery complica tion by meconium in amniotic fluid [id number] Completed 201806/06/2020 Labor and delivery complica reji by meconium in amniotic fluid;Pr actice ID: [id number] Ggee Figueroa MD [address], [place], [address], [facility] 12:32:15 Gestatio n period, 39 weeks [id number] Completed 201806/06/2020 39 weeks gestatio n of pregnanc y;Record ed Elsewher e: No Locat ion: [facility] hered[facility] S ource: EHR Wallpaper Remover Steam arleen: N Practi ce ID: [id number] Lukasz lable Time: 08:30:00 AM Gege Figueroa MD [address], [place], [address], [facility] 12:32:04 Single live from singleto n pregnanc y [id number] Completed 201806/06/2020 Single live ;Pr actice ID: 0001 Gege Figueroa MD [address], [place], [address], [facility] 1 12:32:30 Gestatio n period, 38 weeks [id number] Completed 201806/06/2020 38 weeks gestatio n of pregnanc y;Practi ce ID: [id number] Gege Figueroa MD [address], [place], [address], [facility] 1 12:32:02 Past pregnanc y history of gestatio nal diabetes mellitus 574048711 Completed 201812/06/2020 Bell fritz, [facility] 16:49:09 Past pregnanc y history of gestatio nal diabetes mellitus 261738380 Completed 2018 Carolyn fritz, [facility] 1 12:59:06 Type 2 diabetes mellitus 95960364 Completed 201906/06/2020 Gege Figueroa MD [address], [place], [address], [facility] 12:32:46 Anemia 115941163 Completed 201912/06/2020 Bell fritz, [facility] 1 16:49:07 Pregnanc y 44247172 Completed 202010/19/2020 Ivan fritz, [facility] 4 14:07:32 Antenata l care: grand multipar ity 577094755 Completed 2020 Carolyn fritz, [facility] 1 12:59:06 Pregnanc y 55477559 Completed 202207/17/2023 Ivan fritz, [facility] 4 14:07:32 Problem Notes None recorded. Procedures Surgical History Date Name Laterality Status Provider Name and Address Organization Details Recorded Time 05/31/19 23 Date of Last Pap Smear completed Bell Riojas [facility] 01/01/2023 11:43:13 05/19/19 08 termination of completed Bell Riojas [facility] 01/01/2023 09:55:49 Imaging Results None recorded. Procedure Notes None recorded. Medical Equipment None Reported. Allergies No known drug allergies Medications Name Sig Start Date Stop Date Status Note LastModified by Organization Details LastModified Time nystatin 100,000 unit/gram topical ointment APPLY OINTMENT TOPICALL Y TO AFFECTED AREA TWICE DAILY 01/31 completed Not Available Not Available Not Available fluconazo le 150 mg tablet TAKE 1 TABLET BY MOUTH NOW AND THEN ONE IN 48 HOURS 01/31 completed Not Available Not Available Not Available valacyclo vir 1 gram tablet TAKE 1 TABLET BY MOUTH ONCE DAILY 12/24 completed Not Available Not Available Not Available cyanocoba wesley (vit B-12) 1,000 mcg tablet TAKE 1 TABLET BY MOUTH ONCE DAILY 2023 active Not Available Not Available Not Avai lable acyclovir 400 mg tablet take 1 tablet by oral route every 12 hours 05/09 completed Prescrib gautam Wang e: Yes Loca tion: [facility] odify By: Encount er DateTime : 10/30/19 11:00:00 AM Not Available Not Available Not Available valacyclo vir 500 mg tablet TAKE 1 TABLET BY MOUTH TWICE DAILY active Not Available Not Available No t Available nystatin- triamcino lone 100,000 unit/gram -0.1 % topical ointment APPLY TO THE AFFECTED AREA(S) BY TOPICAL ROUTE 2 TIMES PER DAY 01/31 completed Not Available Not Available Not Available OneTouch Ultra Test strips USE 1 STRIP TO CHECK GLUCOSE TO CHECK GLUCOSE 4 TIMES DAILY 05/23 completed Not Available Not Available Not Available meclizine 25 mg tablet TAKE 1 TABLET BY MOUTH THREE TIMES DAILY active Not Available Not Available No t Available nitrofura ntoin macrocrys keerthi 100 mg capsule TAKE 1 CAPSULE BY MOUTH EVERY 12 HOURS FOR 7 DAYS 03/08 completed Not Available Not Available Not Available triamcino lone acetonide 0.1 % topical ointment APPLY A THIN LAYER OF OINTMENT TOPICALL Y TWICE DAILY 01/31 completed Not Available Not Available Not Available ergocalci ferol (vitamin D2) 1,250 mcg (50,000 unit) capsule TAKE 1 CAPSULE BY MOUTH ONCE A WEEK active Not Available Not Available No t Available ibuprofen 600 mg tablet TAKE 1 TABLET BY MOUTH THREE TIMES DAILY 12/24 completed Not Available Not Available Not Available naproxen 500 mg tablet TAKE 1 TABLET BY MOUTH TWICE DAILY active Not Available Not Available No t Available iron ER 325 mg (65 mg iron) capsule,e xtended release 02/15 completed Prescrib ed Elsewher e: Yes Loca tion: [facility] odify By: [email or web address] Encount er DateTime : 07/21/19 15 03:00:00 PM Not Available Not Available Not Available cholecalc iferol (vitamin D3) 1,250 mcg (50,000 unit) capsule TAKE 1 CAPSULE BY MOUTH ONCE A WEEK active Not Available Not Available No t Available cholecalc iferol (vitamin D3) 75 mcg (3,000 unit) tablet Take 1 tablet by oral route. 2023 active Not Available Not Available Not Avai lable PNV-DHA 27 mg iron-1 mg-300 mg capsule Take 1 capsule every day by oral route as directed for 90 days. 2022 active Not Available Not Available Not Avai lable 28 mg iron-800 mcg tablet TAKE 1 TABLET BY MOUTH ONCE DAILY 05/23 completed Not Available Not Available Not Available Classic 28 mg iron-800 mcg tablet TAKE 1 TABLET BY MOUTH ONCE DAILY DIRECTED FOR 90 DAYS 05/23 completed Not Available Not Available Not Available 28 mg-800 mcg tablet 02/15 completed Prescrib ed Elsewher e: Yes Loca tion: [facility] odify By: [email or web address] Encount er DateTime : 10/30/19 19 11:00:00 AM Not Available Not Available Not Available OneTouch Ultra2 Meter USE DIRECTED 05/23 completed Not Available Not Available Not Available OneTouch Delica Plus Lancet 33 gauge USE 1 TO CHECK GLUCOSE TO CHECK GLUCOSE 4 TIMES DAILY 05/23 completed Not Available Not Available Not Available ID NOW COVID-19 Test Kit TEST DIRECTED TODAY 12/24 completed Not Available Not Available Not Available Vitals Date Recorded Body height Body mass index (BMI) Body weight Systolic And Diastolic Provider Name and Address Organization Details Last Updated DateTime 06/27/2023 160.02 cm 27.6 kg/m2 53988.409 72 g 111/59 mm[Hg] Bellreina Riojas [facility] 06/27/2023 10:49:09 Date Recorded Body height Body mass index (BMI) Body weight Systolic And Diastolic Provider Name and Address Organization Details Last Updated DateTime 07/04/2023 160.02 cm 27.6 kg/m2 26451.409 72 g 137/80 mm[Hg] [facility] 07/04/2023 10:59:13 Date Recorded Body height Body mass index (BMI) Body weight Systolic And Diastolic Provider Name and Address Organization Details Last Updated DateTime 09/03/2023 160.02 cm 26.7 kg/m2 04376.45 g 109/70 mm[Hg] [facility] 09/03/2023 10:05:24 Social History Question Answer Notes LastModified by Organizat ion Details LastModified Time Tobacco Smoking Status [email or web address]/09[facility]2020 12:26:03 If You Are , What Was Your Level Of Alcohol Consumption Prior To ? Occasional [email or web address] Information not available 07/19/2020 Are You Blind Or Do You Have Difficulty Seeing? No [email or web address] Information n ot available 07/19/2020 What Is Your Level Of Caffeine Consumption? Occasional Information not available 07/19/2020 In The 14 Days Before Symptom Onset, Have You Had Close Contact With A Laboratory-confirm ed COVID-19 While That Case Was Ill? No [email or web address] Information n ot available 07/19/2020 In The 14 Days Before Symptom Onset, Have You Had Close Contact With A Person Who Is Under Investigation For COVID-19 While That Person Was Ill? No [email or web address] Information not available 07/19/2020 Have You Been To An Area Known To Be High Risk For COVID-19? No [email or web address] Information not available 07/19/2020 Are You Deaf Or Do You Have Serious Difficulty Hearing? No [email or web address] Information not available 07/19/2020 What Type Of Diet Are You Following? REGULAR [email or web address] Information n ot available 07/19/2020 What Was The Date Of Your Most Recent Tobacco Screening? 09/03/2023 Information not available 09/03/2023 Have You Ever Been Counseled For Unhealthy Alcohol Use? No [email or web address] Information not available 07/19/2020 Do You Use Your Seat Belt Or Car Seat Routinely? Yes [email or web address] Information not available 07/19/2020 Do You Have Smoke And Carbon Monoxide Detectors In Your Home? Yes [email or web address] Information not available 07/19/2020 How Much Tobacco Do You Smoke? No [email or web address] Information not available 05/09/2020 Do You Use Sunscreen Routinely? Yes [email or web address] Information not available 07/19/2020 Has Tobacco Cessation Counseling Been Provided? No [email or web address] Information not available 07/19/2020 Do You Have Difficulty Walking Or Climbing Stairs? No Information not available 05/31/2022 Sex: Unknown Functional Status Question Answer Note LastModified by Organizat ion Details LastModified Time Do you use any illicit or recreational drugs? No [email or web address] Information not available 07/19/2020 Do you or have you ever used any other forms of tobacco or nicotine? No [email or web address] Information not available 07/19/2020 What is your level of alcohol consumption? Occasional [email or web address] Information not available 07/19/2020 Do you or have you ever used smokeless tobacco? Never used smokeless tobacco Information not available 05/09/2020 Are you able to walk independently without assistance or assistive devices? YESWOREST [email or web address] Information not available 07/19/2020 Are you able to care for yourself independently? Yes Information not available 05/31/2022 Do you have difficulty dressing, bathing, grooming, or toileting? No Information not available 05/31/2022 Do you or have you ever used e-cigarettes or vape? Never used electronic cigarettes [email or web address] Information not available 05/09/2020 What is your exercise level? Occasional [email or web address] Information not available 07/19/2020 Mental Status Question Answer Note LastModified by Organization D etails LastModified Time Do you feel stressed (tense, restless, nervous, or anxious, or unable to sleep at night)? [id number] [email or web address] Information not available 07/19/2020 Family History Relationship Description Onset Age of this Age Resolved Age Notes LastModified by Organization Details LastModified Time Father No current problems or disability [email or web address] Not available 05/09 12:26:00 Mother No current problems or disability [email or web address] Not available 05/09 12:26:00 Medical History Condition Response Allergies (Food, seasonal, environmental ) N Other N Breast Cancer N Drug/Latex Allergies/Reactions N Blood Transfusion N Dermatologic Disorders N Lung Disease N Defects or Inherited Disease N Breast Problem N Gestational Diabetes N Hematologic disorders N Anesthesia Complications N History of STI Y Deep Vein Thrombosis N Polycystic ovary syndrome N Anxiety Disorder N Autoimmune disease N Arthritis N Infertility N Polyps N Acid Reflux (GERD) Y History of abnormal pap N Cancer N Stroke N Varicosities N Neurologic/Epilepsy N Endometriosis N High Cholesterol N Headaches N Fibromyalgia N Kidney Disease N Heart Problems N Kidney or Bladder Problems N Thyroid Problems N GI Problems N Eating Disorder N Anemia Y Art (IVF or FET) N Psychiatric Illness N Ovarian Cancer N Diabetes Y Pulmonary (TB, Asthma) N Hepatitis/Liver Disease N No Past Medical History N Eczema N Urinary Tract Infection N Abuse/Domestic Violence N Asthma N Trauma/Violence N Depression/ depression N Heart Disease N Pre-Eclampsia N Hypertension N Osteoporosis N Thrombophilias N Gynecological History Statement/Question Response Flow Moderate Date of LMP 10/31/2022 Was last menstrual period normal Y STIs/STDs Y HPV Vaccine N Current Control Method None Are cycles usually normal N Sexually Active? Y Menses Monthly Y Age of first menstrual cycle 14 Date of Last Pap Smear 05/31/2022 Sexual Problems? N Desired Control Method None LMP Unknown Obstetrics History GPAL:G 10 P 8 0 2 8 Type Value Full Term 8 Induced 1 Spontaneous 1 Premature 0 Living 8 Total 10 Past Encounters Encounter ID Performer Location Encounter Start Date Encounter Closed Date Diagnosis/Indication Diagnosis SNOMED-CT Code Diagnosis ICD10 Code Diagnosis IMO Codes Diagnosis Note [id number] Santiago Mccarthy MD [facility] [address],[place] [address] 05/09/2020 12:00:26 05/09/2020 12:49:16 screening for malformation 126039843 Z36.3 [id number] Adelia Yates [facility] [address],[place] [address] 05/09/2020 12:01:14 05/14/2020 15:34:25 test positive 876846148 Z32.01 Risk factors addressed: Tobacco Cessation, Safe Sexual Practices, environmen keerthi, work hazards, travel restrictio ns, seat belt use.Eat a health well balanced diet, avoid alcohol, tobacco, and street drugs. Engage in daily low impact exercise, avoid temperatur e extremes, and cat, rodent, and bird feces.Avoi d travel to areas where zika virus is a concern.Fi rst look offered to patient. First look accepted by patient and will be scheduled. Sequential Screen handout given and discussed with patient.Ch ildbirth classes recommende d.New OB sheet given. Pt had appt with Dr Adorno and states she had a pap, full exam, and labs including NIPT. Records release filled out and will be sent today. Encouraged weaning from breastfeed ing. Discussed risk vs benefit with patient. If previous , counseling .Pt verbalizes that she understand s the importance of above instructio ns.All questions were answered. Patient reminded to have annual well woman examinatio n and address [facility] . [id number] Gege Figueroa MD [facility] [address],[place] [address] 06/06/2020 10:59:20 06/06/2020 12:09:31 screening 376840432 Z36.2 [id number] Gege Figueroa MD [facility] [address] [address] 06/06/2020 11:00:53 06/07/2020 15:03:13 Routine care 519932304 Z34.90 Advanced m aternal age 946016654 O09.522 Genital he rpes simplex in mother complicating 7354258507 93234 O98.312 [id number] Erica López [facility] [address],[place] [address] 07/07/2020 12:03:53 07/07/2020 16:10:29 Routine care 159149408 Z34.92 [id number] Erica López [facility] [address],[place] [address] 07/19/2020 11:31:33 07/19/2020 13:27:33 Routine care 365519835 Z34.92 [id number] Erica López [facility] [address],[place] [address] 08/02/2020 09:34:15 08/02/2020 09:51:12 Routine care 461886547 Z34.92 [id number] Adelia Yates [facility] [address],[place] [address] 08/16/2020 11:43:44 08/16/2020 12:37:40 Routine care 999071499 Z34.93 [id number] Gege Figueroa MD [facility] [address],[place] [address] 08/30/2020 10:58:05 08/30/2020 12:13:38 Routine care 984558643 Z34.90 care: grand multiparity 336535217 O09.43 [id number] Gege Figueroa MD [facility] [address],[place] [address] 09/13/2020 12:18:56 09/13/2020 14:45:09 Genital herpes simplex 19923453 A60.9 Routine an tenatal care 315482974 Z34.90 [id number] Gege Figueroa MD [facility] [address],[place] [address] 09/20/2020 10:14:23 09/20/2020 13:26:19 care: grand multiparity 020774958 O09.43 Advanced m aternal age 750813692 O09.522 [id number] Adelia Yates [facility] [address],[place] [address] 09/27/2020 11:36:48 09/27/2020 12:20:34 Routine care 139081523 Z34.93 [id number] Gege Figueroa MD [facility] [address],[place] [address] 10/04/2020 12:47:10 10/04/2020 13:13:08 Grand multipara 76240887 Z64.1 Routine an tenatal care 749974024 Z34.90 [id number] Erica López [facility] [address],[place] [address] 12/06/2020 16:42:35 12/06/2020 17:25:01 care 002545015 Z39.2 normal pp exam f/u apr [id number] Erica López [facility] [address],[place] [address] 05/23/2021 16:59:35 05/24/2021 10:46:05 Pain of right shoulder joint 4514877579 9221560 M25.511 heat and ice, to clinic if worsens or does not resolve Gynecologi c examination 00603552 Z01.419 Z11.51 Chronic hoarseness 69369 46274 105 R49.0 see pcp will prob need ent consult [id number] Gege Figueroa MD [facility] [address],[place] [address] 12/24/2021 17:00:09 12/24/2021 17:30:34 Missed miscarriage 89083804 O02.1 [id number] Gege Figueroa MD [facility] [address],[place] [address] 12/24/2021 17:00:09 12/24/2021 17:30:34 Uncertain viability of 676320406 O36.80X0 Z3A.01 [id number] Gege Figueroa MD [facility] [address],[facility] [place] [address] 01/03/2022 15:59:44 01/03/2022 17:03:12 Uncertain viability of 646884992 O36.80X0 O02.1 Z3A.00 [id number] Gege Figueroa MD [facility] [address],[place] [address] 01/04/2022 14:58:20 01/04/2022 15:46:41 Complete miscarriage [id number] O03.9 [id number] Yuridia Segundo [facility] [address],[place] [address] 05/31/2022 09:48:41 05/31/2022 10:48:34 Gynecologic examination 52711823 Z01.419 Suggested Calcium with Vitamin D 1200-1500m g daily. Patient advised to get an annual flu shot in the fall and she could obtain at [facility] or [facility]. Also to obtain TDap vaccinatio n if you have not had one in the last 10 years. Recommend yearly mammograms . Encouraged monthly self breast exams. Encourage safe sexual practices, to use condoms and limit partners if not already in a monogamous relationsh ip. Engage in daily exercise of low impact aerobic exercise 45-60 minutes 4-5 times weekly. Avoid tobacco and illicit drugs as well as using moderation with alcohol intake less than 1-2 8 oz beverages daily. This lifestyle behavior pattern will lead to less health conditions and longer life span. If BMI greater than 25 weight watchers or dietary consult advised. All questions have been answered. Patient appears to understand informatio n, but if you have any questions please call or respond to this email. Pap/hpv sent (on menstrual cycle during exam, specimen might be skewed due to this factor)STD Screen declinedGe netic Screen discussedC olon Screen naDexa Screen naRoutine Labs PCP Anemia 871153957 D64.9 Takes PNV with iron and [facility] [place] [id number] Santiago Mccarthy MD [facility] [address],[place] [address] 01/01/2023 10:37:15 01/01/2023 11:37:15 screening [id number] Z36.82 [id number] Erica López [facility] [address],[place] [address] 01/01/2023 10:37:48 01/01/2023 12:19:29 Amenorrhea 12088726 N91.2 Venereal d isease screening 909984696 Z11.3 [id number] Erica López [facility] [address],[place] [address] 01/03/2023 11:10:45 01/03/2023 11:47:39 Vaginitis 04945304 N76.0 suspect yeast, culture sent f/u as scheduled [id number] Erica López [facility] [address],[place] [address] 01/31/2023 15:29:12 01/31/2023 16:54:52 Gestation period, 13 weeks 03830622 Z3A.13 [id number] Santiago Mccarthy MD [facility] [address],[place] [address] 01/31/2023 16:41:11 02/03/2023 14:29:55 Abdominal pain in 748642064 O99.891 Z3A.16 [id number] Santiago Mccarthy MD [facility] [address],[place] [address] 02/26/2023 16:58:08 02/26/2023 18:05:06 screening for malformation 598521544 Z36.3 O09.529 Z3A.19 [id number] Erica López [facility] [address],[place] [address] 02/26/2023 16:58:29 02/26/2023 18:32:50 Routine care 774006152 Z34.92 [id number] MD Gloria BAILEY [address],[place] [address] 03/28/2023 16:47:51 03/28/2023 23:30:23 [id number] MD Gloria BAILEY [address],[place] [address] 03/31/2023 16:04:16 03/31/2023 17:09:29 Gestation period, 24 weeks 980310886 Z3A.24 Insulin resistance 03093 5000 E88.819 Advanced m aternal age 026785033 O09.522 Italian as a second language 589709873 Z60.8 [id number] VIJAY WILEY MD [facility] [address],[place] [address] 04/25/2023 09:56:54 04/25/2023 10:41:12 Gestation period, 28 weeks 68145198 Z3A.28 screening 2437 74502 Z36.89 Advanced m aternal age 302963462 O09.522 Insufficie nt weight gain of 71890414 O26.13 [id number] Santiago Mccarthy MD [facility] [address],[place] [address] 2023 10:00:00 2023 11:12:25 Chronic hypertension complicating AND/OR reason for care during 86041533 O10.013 O09.523 Z3A.29 [id number] VIJAY WILEY MD [facility] [address],[place] [address] 2023 10:00:51 2023 11:36:20 Gestation period, 29 weeks 29720569 Z3A.29 Advanced m aternal age 854252085 O09.522 Chronic hy pertension complicating AND/OR reason for care during 51212265 O16.9 [id number] Santiago Mccarthy MD [facility] [address],[place] [address] 05/23/2023 09:31:21 05/23/2023 10:46:25 Chronic hypertension complicating AND/OR reason for care during 55504303 O10.013 O09.523 Z3A.29 [id number] Santiago Mccarthy MD [facility] [address],[place] [address] 05/23/2023 09:32:03 05/23/2023 11:29:19 Chronic hypertension complicating AND/OR reason for care during 86022596 O10.013 O09.523 Z3A.32 [id number] Erica López [facility] [address],[place] [address] 05/23/2023 09:33:48 05/23/2023 10:51:55 Routine care 128772729 Z34.92 [id number] Santiago Mccarthy MD [facility] [address],[place] [address] 05/30/2023 09:34:11 05/30/2023 10:56:50 Chronic hypertension complicating AND/OR reason for care during 11811423 O10.013 O09.523 Z3A.33 [id number] Santiago Mccarthy MD [facility] [address],[place] [address] 05/30/2023 09:34:31 05/30/2023 10:36:19 Chronic hypertension complicating AND/OR reason for care during 99296995 O10.013 O09.523 Z3A.33 [id number] Erica López, [facility] [address],[place] [address] 05/30/2023 09:34:47 05/30/2023 11:42:21 Routine care 183016091 Z34.92 [id number] VIJAY WILEY MD [facility] [address],[place] [address] 06/06/2023 09:30:05 06/06/2023 13:13:18 Advanced maternal age 189848683 O09.522 Herpes simplex 14816114 B00.9 [id number] Santiago Mccarthy MD [facility] [address],[place] [address] 06/06/2023 09:30:36 06/06/2023 10:37:40 Chronic hypertension complicating AND/OR reason for care during 53292364 O10.013 O09.523 Z3A.33 [id number] Santiago Mccarthy MD [facility] [address],[place] [address] 06/06/2023 09:33:01 06/06/2023 11:35:50 Chronic hypertension complicating AND/OR reason for care during 60447342 O10.013 O09.523 Z3A.34 [id number] Santiago Mccarthy MD [facility] [address],[place] [address] 06/13/2023 10:03:18 06/13/2023 11:37:45 Chronic hypertension complicating AND/OR reason for care during 70203123 O10.013 O09.523 Z3A.35 [id number] Santiago Mccarthy MD [facility] [address],[place] [address] 06/13/2023 10:03:40 06/13/2023 11:03:04 Chronic hypertension complicating AND/OR reason for care during 06660922 O10.013 O09.523 Z3A.35 [id number] VIJAY WILEY MD [facility] [address],[place] [address] 06/13/2023 10:03:56 06/13/2023 11:50:13 Grand multipara 54150235 Z64.1 Advanced m aternal age 339105905 O09.522 Gestation period, 35 weeks 75238911 Z3A.35 [id number] Santiago Mccarthy MD [facility] [address],[place] [address] 06/20/2023 09:25:35 06/20/2023 11:53:56 Chronic hypertension complicating AND/OR reason for care during 39383776 O10.013 O09.523 Z3A.36 [id number] Snatiago Mccarthy MD [facility] [address],[place] [address] 06/20/2023 09:25:55 06/20/2023 11:01:15 Chronic hypertension complicating AND/OR reason for care during 42615776 O10.013 O09.523 Z3A.36 [id number] VIJAY WILEY MD [facility] [address],[place] [address] 06/20/2023 09:26:09 06/20/2023 11:59:57 Herpes simplex 67749038 B00.9 Grand multipara 96081626 Z64.1 Advanced m aternal age 166711991 O09.522 Gestation period, 36 weeks 81372672 Z3A.36 [id number] Santiago Mccarthy MD [facility] [address],[place] [address] 06/27/2023 09:25:46 06/27/2023 11:02:18 Chronic hypertension complicating AND/OR reason for care during 91011073 O10.013 O09.523 Z3A.36 [id number] Santiago Mccarthy MD [facility] [address],[place] [address] 06/27/2023 09:26:05 06/27/2023 13:34:45 Chronic hypertension complicating AND/OR reason for care during 02708322 O10.013 O09.523 Z3A.37 [id number] Erica López [facility] [address],[place] [address] 06/27/2023 09:26:24 06/27/2023 11:04:54 Routine care 173641771 Z34.92 [id number] Santiago Mccarthy MD [facility] [address],[place] [address] 07/04/2023 09:38:11 07/04/2023 13:35:07 Chronic hypertension complicating AND/OR reason for care during [id number] O10.013 O09.523 Z3A.37 Z3A.38 [id number] Santiago Mccarthy MD Glennie [address],[place] [address] 07/04/2023 09:38:29 07/04/2023 10:42:15 Chronic hypertension complicating AND/OR reason for care during [id number] O10.013 O09.523 Z3A.37 Z3A.38 [id number] Erica López CNM Glennie [address],[place] [address] 07/04/2023 09:38:45 07/04/2023 11:28:17 Routine care [id number] Z34.92 [id number] Erica López CNM Glennie [address],[place] [address] 09/03/2023 09:48:46 09/03/2023 10:25:59 care [id number] Z39.2 check labs await results, natural family planning as control method f.u 6 mo wwe Right side d abdominal pain [id number] R10.9 us ordered Health Concerns Section Related Observation LastModified by Organization Detai ls LastModified Time None Recorded Concern Status LastModified by Organization Details LastModified Time None Recorded Advance Directives Directive None Recorded Payers Insurance Date Sequence Insurance Name Policy Number Policy Olmedo Covered Member ID Olmedo Member ID Guarantor Name 03/08/2025 1 [facility] (MEDICAID HMO) [id number] Sadia Harrell [id number] Sadia Harrell 03/08/2025 1 [place] [facility] Sadia Harrell [id number] Sadia Harrell Notes Date Note Type Note Provider Name and Address Organization Details Recorded Time 4 text/html Generic HPI TemplateReported by Patient NIYAH [address], [place], [address], [facility] 06/27/2023 11:03:21 4 text/html OB ProblemReported by Patient Andreina fritz, [facility] 07/04/2023 12:31:10 4 text/html Generic HPI TemplateReported by Patient NIYAH [address], [place], [address], [facility] 07/04/2023 11:20:31 4 text/html VisitReported by PatientHPIFor associated symptoms, patient reportsbaby bluesbut reportsno abnormal bleeding,no vaginal discharge,no pelvic pain,no constipation,no fecal incontinence,no dysuria,no urinary incontinence,no fever,no problems, andno mastitis(noted increased sadness after baby today doing much better, has never had that after her babies. discussed nutritional deficiencies in and how that can also affect mood, fatigue will check labs today). For quality, patient reportsnsvd. For context, patient reportscomplications of : none,complications of labor: none, complications: none,feeding choice: breast,good support from partner/family, andresumed menstrual bleeding no. For contraception plan, patient reportsdeclines contraception.natural family planning c/o right sided pain off and on since deliveryROS as noted in the HPI Bell fritz [facility] 09/03/2023 18:04:16 OBGyn Episode Ob Episode Information Episode Created Date Number of Fetuses Patient Bloodtype Patient rh Status Prepregnancy Weight lbs Domestic Partner Domestic Partner Phone Father Name Fitness And Wellness Instructor Status 05/09/20 20 1 DELETED Migel Calculation Initial Migel Date Initial Exam Date Initial Exam Provider Initial Ultrasound Date Last Menstrual Period Date Ultra Sound Weeks Gestation 0 Eighteen To Twenty Week Migel Update Ultra Sound Date Fundal Height At Umbil Quickening Date Ultra Sound Latest Weeks Gestation Final Migel Confirmed By Final Migel Confirmed Date Final Migel Date Ultra Sound Latest Days Gestation 0 0 Menstrual History Last Menstrual Date Menses Monthly On Bcp Conception Prior Menses Frequency Hcg Plus Date Menarche Onset Age Delivery Information Delivery Date Delivery Type Labor Anesthesia Weeks Gestation Incision Type Labor Labor Length Hrs Delivered By Post Complications Tubal Sterilization Discharge Date Comments 3 Discharge Information Feeding Method Contraceptive Method Maternal HG B and HCT Levels Ob Episode Information Episode Created Date Number of Fetuses Patient Bloodtype Patient rh Status Prepregnancy Weight lbs Domestic Partner Domestic Partner Phone Father Name Fitness And Wellness Instructor Status 05/09/20 20 1 CLOSED Fetus Data First Name Last Name Admitted to NICU Weight (g) Sex Living Outcome Pediatric Complications Fetus ID Race Codes Race Delivery Type 3231.84 3 F Full Term 6701 Vaginal Delivery Migel Calculation Initial Migel Date Initial Exam Date Initial Exam Provider Initial Ultrasound Date Last Menstrual Period Date Ultra Sound Weeks Gestation 0 Eighteen To Twenty Week Migel Update Ultra Sound Date Fundal Height At Umbil Quickening Date Ultra Sound Latest Weeks Gestation Final Migel Confirmed By Final Migel Confirmed Date Final Migel Date Ultra Sound Latest Days Gestation 0 0 Menstrual History Last Menstrual Date Menses Monthly On Bcp Conception Prior Menses Frequency Hcg Plus Date Menarche Onset Age Delivery Information Delivery Date Delivery Type Labor Anesthesia Weeks Gestation Incision Type Labor Labor Length Hrs Delivered By Post Complications Tubal Sterilization Discharge Date Comments 5 38 Discharge Information Feeding Method Contraceptive Method Maternal HG B and HCT Levels Ob Episode Information Episode Created Date Number of Fetuses Patient Bloodtype Patient rh Status Prepregnancy Weight lbs Domestic Partner Domestic Partner Phone Father Name Fitness And Wellness Instructor Status 06/06/19 21 1 CLOSED Fetus Data First Name Last Name Admitted to NICU Weight (g) Sex Living Outcome Pediatric Complications Fetus ID Race Codes Race Delivery Type , Induced 7255 Migel Calculation Initial Migel Date Initial Exam Date Initial Exam Provider Initial Ultrasound Date Last Menstrual Period Date Ultra Sound Weeks Gestation 0 Eighteen To Twenty Week Migel Update Ultra Sound Date Fundal Height At Umbil Quickening Date Ultra Sound Latest Weeks Gestation Final Migel Confirmed By Final Migel Confirmed Date Final Migel Date Ultra Sound Latest Days Gestation 0 0 Menstrual History Last Menstrual Date Menses Monthly On Bcp Conception Prior Menses Frequency Hcg Plus Date Menarche Onset Age Delivery Information Delivery Date Delivery Type Labor Anesthesia Weeks Gestation Incision Type Labor Labor Length Hrs Delivered By Post Complications Tubal Sterilization Discharge Date Comments 8 Discharge Information Feeding Method Contraceptive Method Maternal HG B and HCT Levels Ob Episode Information Episode Created Date Number of Fetuses Patient Bloodtype Patient rh Status Prepregnancy Weight lbs Domestic Partner Domestic Partner Phone Father Name Fitness And Wellness Instructor Status 05/09/20 20 1 CLOSED Fetus Data First Name Last Name Admitted to NICU Weight (g) Sex Living Outcome Pediatric Complications Fetus ID Race Codes Race Delivery Type 3515.33 8 M Full Term 6699 Vaginal Delivery Migel Calculation Initial Migel Date Initial Exam Date Initial Exam Provider Initial Ultrasound Date Last Menstrual Period Date Ultra Sound Weeks Gestation 0 Eighteen To Twenty Week Migel Update Ultra Sound Date Fundal Height At Umbil Quickening Date Ultra Sound Latest Weeks Gestation Final Migel Confirmed By Final Migel Confirmed Date Final Migel Date Ultra Sound Latest Days Gestation 0 0 Menstrual History Last Menstrual Date Menses Monthly On Bcp Conception Prior Menses Frequency Hcg Plus Date Menarche Onset Age Delivery Information Delivery Date Delivery Type Labor Anesthesia Weeks Gestation Incision Type Labor Labor Length Hrs Delivered By Post Complications Tubal Sterilization Discharge Date Comments 3 38 Discharge Information Feeding Method Contraceptive Method Maternal HG B and HCT Levels Ob Episode Information Episode Created Date Number of Fetuses Patient Bloodtype Patient rh Status Prepregnancy Weight lbs Domestic Partner Domestic Partner Phone Father Name Fitness And Wellness Instructor Status 05/09/20 20 1 CLOSED Fetus Data First Name Last Name Admitted to NICU Weight (g) Sex Living Outcome Pediatric Complications Fetus ID Race Codes Race Delivery Type 3430.06 2704 M Full Term 6700 Vaginal Delivery Migel Calculation Initial Migel Date Initial Exam Date Initial Exam Provider Initial Ultrasound Date Last Menstrual Period Date Ultra Sound Weeks Gestation 0 Eighteen To Twenty Week Migel Update Ultra Sound Date Fundal Height At Umbil Quickening Date Ultra Sound Latest Weeks Gestation Final Migel Confirmed By Final Migel Confirmed Date Final Migel Date Ultra Sound Latest Days Gestation 0 0 Menstrual History Last Menstrual Date Menses Monthly On Bcp Conception Prior Menses Frequency Hcg Plus Date Menarche Onset Age Delivery Information Delivery Date Delivery Type Labor Anesthesia Weeks Gestation Incision Type Labor Labor Length Hrs Delivered By Post Complications Tubal Sterilization Discharge Date Comments 1 42 GDM Discharge Information Feeding Method Contraceptive Method Maternal HG B and HCT Levels Ob Episode Information Episode Created Date Number of Fetuses Patient Bloodtype Patient rh Status Prepregnancy Weight lbs Domestic Partner Domestic Partner Phone Father Name Fitness And Wellness Instructor Status 06/06/19 21 1 O Positive 149 CLOSED Fetus Data First Name Last Name Admitted to NICU Weight (g) Sex Living Outcome Pediatric Complications Fetus ID Race Codes Race Delivery Type 3657.08 55 M true Full Term 7243 Vaginal Delivery Problems Problem Notes Problem Name Start Date End Date Resolution Snomed Code Not e Past history of gestational diabetes mellitus 02/15/2019 [id number] care: grand multiparity 06/07/2020 [id number] Multigravida of advanced maternal age [id number] normal NIPT Genital herpes simplex [id number] valtrex at 36 weeks - 09/13 sent Migel Calculation Initial Migel Date Initial Exam Date Initial Exam Provider Initial Ultrasound Date Last Menstrual Period Date Ultra Sound Weeks Gestation 10/07/2020 06/06/2020 05/09/2020 18 Eighteen To Twenty Week Migel Update Ultra Sound Date Fundal Height At Umbil Quickening Date Ultra Sound Latest Weeks Gestation Final Migel Confirmed By Final Migel Confirmed Date Final Migel Date Ultra Sound Latest Days Gestation 0 [id number] 06/06/2020 10/08/19 21 0 Pre-kelly Flowsheet Flowsheet Date 06/06/2020 Michele Score Blood Edema Fundus Height Fundus Units Glucose Ketones Leukocytes Nitrite Labor Signs Protein Cervic Dilation Cervic Effacement Cervic Station neg none 22 trace Type Weight in lbs Pre/Post Dialysis Refused Weight 152.732528147795 BP Diastolic BP Location Tested BP Systolic BP Type 75 118 Fetus Heart Rate Present A 140 Fetus Movement A Yes Comments 40yo transfer of pre care. Awaiting records from [facility]. US today completed anatomy. HIstory of GDM x2 of her pregnancies, will do GCT next visit. History of HSV diagnosed in 2019. thinks outbreak now. valtrex now, then prophylaxis at 36 weeks. Flowsheet Date 07/07/2020 Michele Score Blood Edema Fundus Height Fundus Units Glucose Ketones Leukocytes Nitrite Labor Signs Protein Cervic Dilation Cervic Effacement Cervic Station neg none 28 trace Type Weight in lbs Pre/Post Dialysis Refused Weight 158.432089720220 BP Diastolic BP Location Tested BP Systolic BP Type 73 118 Fetus Heart Rate Present A 141 Fetus Movement A Yes Comments patient states that having B H contractions, some pain with urination and nausea, urine sent for culture, precautions reviewed, ptl precautions doing gct today Flowsheet Date 07/19/2020 Michele Score Blood Edema Fundus Height Fundus Units Glucose Ketones Leukocytes Nitrite Labor Signs Protein Cervic Dilation Cervic Effacement Cervic Station neg none 28 trace Type Weight in lbs Pre/Post Dialysis Refused Weight 155.44401698872 BP Diastolic BP Location Tested BP Systolic BP Type 68 107 Fetus Heart Rate Present A 145 Present Fetus Movement A Yes Comments 3 hour GTT wnl, doing well, plan fri morning visits when jeimy is here to translate, all questions answered and pt sent to lab for hep C, f/u 2 weeks Flowsheet Date 08/02/2020 Michele Score Blood Edema Fundus Height Fundus Units Glucose Ketones Leukocytes Nitrite Labor Signs Protein Cervic Dilation Cervic Effacement Cervic Station neg none trace Type Weight in lbs Pre/Post Dialysis Refused Weight 155.86920037367 BP Diastolic BP Location Tested BP Systolic BP Type 72 109 Fetus Heart Rate Present A 144 Present Fetus Movement A Yes Comments doing well, jeimy at bs to translate, precautions reviewed, f/u 2 week ob visit Flowsheet Date 08/16/2020 Michele Score Blood Edema Fundus Height Fundus Units Glucose Ketones Leukocytes Nitrite Labor Signs Protein Cervic Dilation Cervic Effacement Cervic Station none 32 trace Type Weight in lbs Pre/Post Dialysis Refused Weight 155.14487528995 BP Diastolic BP Location Tested BP Systolic BP Type 70 106 Fetus Heart Rate Present A 140 Fetus Movement A Yes Comments Encouraged to schedule pre a dmit. Rare occasional contractions. PTL precautions. Stomach discomfort after eating. This has been ongoing throughout . Will treat for acid reflux. If no improvement within 1 week she will let us know. Visit per Z. Due SNM. Flowsheet Date 08/30/2020 Michele Score Blood Edema Fundus Height Fundus Units Glucose Ketones Leukocytes Nitrite Labor Signs Protein Cervic Dilation Cervic Effacement Cervic Station neg none 33 trace Type Weight in lbs Pre/Post Dialysis Refused Weight 160.792280829150 BP Diastolic BP Location Tested BP Systolic BP Type 76 113 Fetus Heart Rate Present A 145 Fetus Movement A Yes Comments Doing well, just uncomfortab le. GOing on 3 day trip- precautions given. Valtrex to start next visit, GBS next visit. Flowsheet Date 09/13/2020 Michele Score Blood Edema Fundus Height Fundus Units Glucose Ketones Leukocytes Nitrite Labor Signs Protein Cervic Dilation Cervic Effacement Cervic Station neg trace 37 trace 1cm 70% -4 Type Weight in lbs Pre/Post Dialysis Refused Weight 164.05898582301 BP Diastolic BP Location Tested BP Systolic BP Type 75 115 Fetus Heart Rate Present A 120 Fetus Movement A Yes Comments Doing well. Irregular ctx. G BS done and discussed. Valtrex script sent, will start. Precautions given. FU weekly. Flowsheet Date 09/20/2020 Michele Score Blood Edema Fundus Height Fundus Units Glucose Ketones Leukocytes Nitrite Labor Signs Protein Cervic Dilation Cervic Effacement Cervic Station neg trace 38 trace 3cm 50% -3 Type Weight in lbs Pre/Post Dialysis Refused Weight 169.566814297132 BP Diastolic BP Location Tested BP Systolic BP Type 79 133 Fetus Heart Rate Present A 130 Fetus Movement A Yes Comments Ctx getting stronger but not regular at all. Taking valtrex. GBS neg. Precautions given. Flowsheet Date 09/27/2020 Michele Score Blood Edema Fundus Height Fundus Units Glucose Ketones Leukocytes Nitrite Labor Signs Protein Cervic Dilation Cervic Effacement Cervic Station trace 38 trace 2cm 50% -3 Type Weight in lbs Pre/Post Dialysis Refused Weight 168.912258408587 BP Diastolic BP Location Tested BP Systolic BP Type 70 115 Fetus Heart Rate Present A 145 Fetus Movement A Yes Comments Labor precautions discussed. Pt desires spontaneous labor.Visit per Z. Due SNM. Flowsheet Date 10/04/2020 Michele Score Blood Edema Fundus Height Fundus Units Glucose Ketones Leukocytes Nitrite Labor Signs Protein Cervic Dilation Cervic Effacement Cervic Station neg trace 38 trace 3cm 50% -3 Type Weight in lbs Pre/Post Dialysis Refused Weight 169.358888600054 BP Diastolic BP Location Tested BP Systolic BP Type 84 133 Fetus Heart Rate Present A 145 Fetus Movement A Yes Comments Doing ok, just tired. Irregu lar contractions. Awaiting spontaneous labor. GBS. will make appt for next week in case undelivered. Menstrual History Last Menstrual Date Menses Monthly On Bcp Conception Prior Menses Frequency Hcg Plus Date Menarche Onset Age Genetic Screening And Infection History Question Response Note Mental Retardation/Autism false Patient's Age Will Be 35 Years Or Older At Estim ated Date of Delivery true Thalassemia (English, Andorran, Mediterranean, Or Background): MCV < 80 false Neural Tube Defect (Meningomyelocele, Spina Bifi da, Or Anencephaly) false Congenital Heart Defect false Down Syndrome false Juan-Sachs (eg, Yazidi, Cajun, Croatian-Finnish) f alse Sissy Disease false Sickle Cell Disease Or Trait () false Hemophilia Or Other Blood Disorders false Muscular Dystrophy false Cystic Fibrosis false Montclair's Chorea false Intellectual Disability/Autism false If Yes, Was Person Tested For Fragile X? false Other Inherited Genetic Or Chromosomal Disorder false Maternal Metabolic Disorder (eg, Type 1 Diabetes , PKU) false Patient Or Baby's Father Had A Child With Defects Not Listed Above false Recurrent Loss, Or A Stillbirth false Medications (including Suppl ements, Vitamins, Herbs, OTC Drugs), Illicit/Recreational Drugs, Alcohol false If Yes, Agent(s) And Strength/Dosage false Any Other Genetic History false Live With Someone With TB Or Exposed To TB false Patient Or Partner Has History Of Genital Herpes false Rash Or Viral Illness Since Last Menstrual Perio d false History Of STD, Gonorrhea, Chlamydia, HPV, Syphi lis false Other Infection History false History of HIV false History of Hepatitis false Prior GBS-infected child false Hemoglobinopathy Or Carrier false Other Structural Defect false Recent Travel History Outside of Country false Delivery Information Delivery Date Delivery Type Labor Anesthesia Weeks Gestation Incision Type Labor Labor Length Hrs Delivered By Post Complications Tubal Sterilization Discharge Date Comments 1 Aug reji None 39.6 false Erica López CNM Discharge Information Feeding Method Contraceptive Method Maternal HG B and HCT Levels Breast Ob Episode Information Episode Created Date Number of Fetuses Patient Bloodtype Patient rh Status Prepregnancy Weight lbs Domestic Partner Domestic Partner Phone Father Name Fitness And Wellness Instructor Status 06/06/19 21 1 CLOSED Fetus Data First Name Last Name Admitted to NICU Weight (g) Sex Living Outcome Pediatric Complications Fetus ID Race Codes Race Delivery Type 3203.26 6704 F Full Term 7253 Vaginal Delivery Migel Calculation Initial Migel Date Initial Exam Date Initial Exam Provider Initial Ultrasound Date Last Menstrual Period Date Ultra Sound Weeks Gestation 0 Eighteen To Twenty Week Migel Update Ultra Sound Date Fundal Height At Umbil Quickening Date Ultra Sound Latest Weeks Gestation Final Migel Confirmed By Final Migel Confirmed Date Final Migel Date Ultra Sound Latest Days Gestation 0 0 Menstrual History Last Menstrual Date Menses Monthly On Bcp Conception Prior Menses Frequency Hcg Plus Date Menarche Onset Age Delivery Information Delivery Date Delivery Type Labor Anesthesia Weeks Gestation Incision Type Labor Labor Length Hrs Delivered By Post Complications Tubal Sterilization Discharge Date Comments 9 38 GDM Discharge Information Feeding Method Contraceptive Method Maternal HG B and HCT Levels Ob Episode Information Episode Created Date Number of Fetuses Patient Bloodtype Patient rh Status Prepregnancy Weight lbs Domestic Partner Domestic Partner Phone Father Name Fitness And Wellness Instructor Status 05/09/20 20 1 CLOSED Fetus Data First Name Last Name Admitted to NICU Weight (g) Sex Living Outcome Pediatric Complications Fetus ID Race Codes Race Delivery Type 3401.94 M Full Term 6702 Vaginal Delivery Migel Calculation Initial Migel Date Initial Exam Date Initial Exam Provider Initial Ultrasound Date Last Menstrual Period Date Ultra Sound Weeks Gestation 0 Eighteen To Twenty Week Migel Update Ultra Sound Date Fundal Height At Umbil Quickening Date Ultra Sound Latest Weeks Gestation Final Migel Confirmed By Final Migel Confirmed Date Final Migel Date Ultra Sound Latest Days Gestation 0 0 Menstrual History Last Menstrual Date Menses Monthly On Bcp Conception Prior Menses Frequency Hcg Plus Date Menarche Onset Age Delivery Information Delivery Date Delivery Type Labor Anesthesia Weeks Gestation Incision Type Labor Labor Length Hrs Delivered By Post Complications Tubal Sterilization Discharge Date Comments 4 38 Discharge Information Feeding Method Contraceptive Method Maternal HG B and HCT Levels Ob Episode Information Episode Created Date Number of Fetuses Patient Bloodtype Patient rh Status Prepregnancy Weight lbs Domestic Partner Domestic Partner Phone Father Name Fitness And Wellness Instructor Status 05/09/20 20 1 DELETED Migel Calculation Initial Migel Date Initial Exam Date Initial Exam Provider Initial Ultrasound Date Last Menstrual Period Date Ultra Sound Weeks Gestation 0 Eighteen To Twenty Week Migel Update Ultra Sound Date Fundal Height At Umbil Quickening Date Ultra Sound Latest Weeks Gestation Final Migel Confirmed By Final Migel Confirmed Date Final Migel Date Ultra Sound Latest Days Gestation 0 0 Menstrual History Last Menstrual Date Menses Monthly On Bcp Conception Prior Menses Frequency Hcg Plus Date Menarche Onset Age Delivery Information Delivery Date Delivery Type Labor Anesthesia Weeks Gestation Incision Type Labor Labor Length Hrs Delivered By Post Complications Tubal Sterilization Discharge Date Comments 9 GDM Discharge Information Feeding Method Contraceptive Method Maternal HG B and HCT Levels Ob Episode Information Episode Created Date Number of Fetuses Patient Bloodtype Patient rh Status Prepregnancy Weight lbs Domestic Partner Domestic Partner Phone Father Name Fitness And Wellness Instructor Status 05/09/20 20 1 CLOSED Fetus Data First Name Last Name Admitted to NICU Weight (g) Sex Living Outcome Pediatric Complications Fetus ID Race Codes Race Delivery Type 3656.85 8704 F Full Term 6698 Vaginal Delivery Migel Calculation Initial Migel Date Initial Exam Date Initial Exam Provider Initial Ultrasound Date Last Menstrual Period Date Ultra Sound Weeks Gestation 0 Eighteen To Twenty Week Migel Update Ultra Sound Date Fundal Height At Umbil Quickening Date Ultra Sound Latest Weeks Gestation Final Migel Confirmed By Final Migel Confirmed Date Final Migel Date Ultra Sound Latest Days Gestation 0 0 Menstrual History Last Menstrual Date Menses Monthly On Bcp Conception Prior Menses Frequency Hcg Plus Date Menarche Onset Age Delivery Information Delivery Date Delivery Type Labor Anesthesia Weeks Gestation Incision Type Labor Labor Length Hrs Delivered By Post Complications Tubal Sterilization Discharge Date Comments 5 39 Discharge Information Feeding Method Contraceptive Method Maternal HG B and HCT Levels Ob Episode Information Episode Created Date Number of Fetuses Patient Bloodtype Patient rh Status Prepregnancy Weight lbs Domestic Partner Domestic Partner Phone Father Name Fitness And Wellness Instructor Status 06/06/19 21 1 CLOSED Fetus Data First Name Last Name Admitted to NICU Weight (g) Sex Living Outcome Pediatric Complications Fetus ID Race Codes Race Delivery Type , Spontane ous 7254 Migel Calculation Initial Migel Date Initial Exam Date Initial Exam Provider Initial Ultrasound Date Last Menstrual Period Date Ultra Sound Weeks Gestation 0 Eighteen To Twenty Week Migel Update Ultra Sound Date Fundal Height At Umbil Quickening Date Ultra Sound Latest Weeks Gestation Final Migel Confirmed By Final Migel Confirmed Date Final Migel Date Ultra Sound Latest Days Gestation 0 0 Menstrual History Last Menstrual Date Menses Monthly On Bcp Conception Prior Menses Frequency Hcg Plus Date Menarche Onset Age Delivery Information Delivery Date Delivery Type Labor Anesthesia Weeks Gestation Incision Type Labor Labor Length Hrs Delivered By Post Complications Tubal Sterilization Discharge Date Comments 2 10 Discharge Information Feeding Method Contraceptive Method Maternal HG B and HCT Levels Ob Episode Information Episode Created Date Number of Fetuses Patient Bloodtype Patient rh Status Prepregnancy Weight lbs Domestic Partner Domestic Partner Phone Father Name Fitness And Wellness Instructor Status 02/01/20 23 1 O Positive 151 natalia harrell CLOSED Fetus Data First Name Last Name Admitted to NICU Weight (g) Sex Living Outcome Pediatric Complications Fetus ID Race Codes Race Delivery Type 3260.19 25 F true Full Term 19619 Vaginal Delivery Problems Problem Notes Problem Name Start Date End Date Resolution Snomed Code Not e Blood glucose outside reference range [id number] 1hr GCT 150 - pt checking bs Rubella non-immune [id number] M MR PP Chronic hypertension in obstetric context [id number] ASA QD Advanced maternal age [id number] testing Past history of gestational diabetes mellitus [id number] elevated Hga1c early 20 week GCT elevated, checking bs Herpes simplex [id number] plan valtrex at 36 weeks Multigravida [id number] Migel Calculation Initial Migel Date Initial Exam Date Initial Exam Provider Initial Ultrasound Date Last Menstrual Period Date Ultra Sound Weeks Gestation 07/17/2023 01/01/2023 01/01/2023 10/31/2022 11 Eighteen To Twenty Week Migel Update Ultra Sound Date Fundal Height At Umbil Quickening Date Ultra Sound Latest Weeks Gestation Final Migel Confirmed By Final Migel Confirmed Date Final Migel Date Ultra Sound Latest Days Gestation 0 [id number] 01/31/2023 07/17/19 24 0 Pre-kelly Flowsheet Flowsheet Date 01/03/2023 Michele Score Blood Edema Fundus Height Fundus Units Glucose Ketones Leukocytes Nitrite Labor Signs Protein Cervic Dilation Cervic Effacement Cervic Station Type Weight in lbs Pre/Post Dialysis Refused BP Diastolic BP Location Tested BP Systolic BP Type Fetus Heart Rate Present Fetus Movement Comments Flowsheet Date 01/31/2023 Michele Score Blood Edema Fundus Height Fundus Units Glucose Ketones Leukocytes Nitrite Labor Signs Protein Cervic Dilation Cervic Effacement Cervic Station Type Weight in lbs Pre/Post Dialysis Refused BP Diastolic BP Location Tested BP Systolic BP Type Fetus Heart Rate Present Fetus Movement Comments Flowsheet Date 01/31/2023 Michele Score Blood Edema Fundus Height Fundus Units Glucose Ketones Leukocytes Nitrite Labor Signs Protein Cervic Dilation Cervic Effacement Cervic Station Type Weight in lbs Pre/Post Dialysis Refused BP Diastolic BP Location Tested BP Systolic BP Type Fetus Heart Rate Present Fetus Movement Comments Flowsheet Date 01/31/2023 Michele Score Blood Edema Fundus Height Fundus Units Glucose Ketones Leukocytes Nitrite Labor Signs Protein Cervic Dilation Cervic Effacement Cervic Station neg trace none trace Type Weight in lbs Pre/Post Dialysis Refused Weight 152.957004124762 BP Diastolic BP Location Tested BP Systolic BP Type 62 106 Fetus Heart Rate Present Fetus Movement A Yes Comments patient states that having s ome pain, contractions, and swelling. reviewed precautions, US for pelvic pain, f/u anatomy scan at next visit and plan early glucose., vaginal deliveries w/o complication, education and precautions reviewed Flowsheet Date 02/26/2023 Michele Score Blood Edema Fundus Height Fundus Units Glucose Ketones Leukocytes Nitrite Labor Signs Protein Cervic Dilation Cervic Effacement Cervic Station Type Weight in lbs Pre/Post Dialysis Refused BP Diastolic BP Location Tested BP Systolic BP Type Fetus Heart Rate Present Fetus Movement Comments Flowsheet Date 02/26/2023 Michele Score Blood Edema Fundus Height Fundus Units Glucose Ketones Leukocytes Nitrite Labor Signs Protein Cervic Dilation Cervic Effacement Cervic Station neg trace none trace Type Weight in lbs Pre/Post Dialysis Refused Weight 154.984041089038 BP Diastolic BP Location Tested BP Systolic BP Type 69 112 Fetus Heart Rate Present Fetus Movement A Yes Comments . patient states that couple weeks ago patient had elevated blood pressure with headaches and dizziness. went away on its own, precautions reviewed, tired, but feels good, anatomy complete, lab closed to come back next week for early GCT, pt agrees f/u 4 weeks Flowsheet Date 03/28/2023 Michele Score Blood Edema Fundus Height Fundus Units Glucose Ketones Leukocytes Nitrite Labor Signs Protein Cervic Dilation Cervic Effacement Cervic Station Type Weight in lbs Pre/Post Dialysis Refused BP Diastolic BP Location Tested BP Systolic BP Type Fetus Heart Rate Present Fetus Movement Comments Flowsheet Date 03/31/2023 Michele Score Blood Edema Fundus Height Fundus Units Glucose Ketones Leukocytes Nitrite Labor Signs Protein Cervic Dilation Cervic Effacement Cervic Station none 24 Type Weight in lbs Pre/Post Dialysis Refused Weight 147.906836980916 BP Diastolic BP Location Tested BP Systolic BP Type 67 107 Fetus Heart Rate Present A 130 Fetus Movement A Yes Comments Denies contractions, bleedin g. Good movement. Has been checking glucose, all well within goal (fasting <80, 1h PP <110). Will check for 1 more week, if normal consider d/c checking as no evidence of GDM with normal glucose levels. Has been very restrictive with diet, will reintroduce some carbs. Not taking ASA, discussed indications and declined. Flowsheet Date 04/25/2023 Michele Score Blood Edema Fundus Height Fundus Units Glucose Ketones Leukocytes Nitrite Labor Signs Protein Cervic Dilation Cervic Effacement Cervic Station Type Weight in lbs Pre/Post Dialysis Refused Weight 146.477793349225 BP Diastolic BP Location Tested BP Systolic BP Type 63 106 Fetus Heart Rate Present A 135 Fetus Movement Comments Had one vasovagal episode, l asting 15 minutes with no loss of consciousness. Otherwise doing well. Baby active. Blood sugars wnl, can stop checking. No evidence of GDM. Patient has lost 8 lbs in the last 2 months, will repeat growth US next visit to evaluate growth. Discussed 28 week labs and Tdap vaccine. Flowsheet Date 2023 Michele Score Blood Edema Fundus Height Fundus Units Glucose Ketones Leukocytes Nitrite Labor Signs Protein Cervic Dilation Cervic Effacement Cervic Station Type Weight in lbs Pre/Post Dialysis Refused BP Diastolic BP Location Tested BP Systolic BP Type Fetus Heart Rate Present Fetus Movement Comments Flowsheet Date 2023 Michele Score Blood Edema Fundus Height Fundus Units Glucose Ketones Leukocytes Nitrite Labor Signs Protein Cervic Dilation Cervic Effacement Cervic Station Type Weight in lbs Pre/Post Dialysis Refused Weight 147.310339573917 BP Diastolic BP Location Tested BP Systolic BP Type 72 112 Fetus Heart Rate Present A 134 Fetus Movement A Yes Comments Good movement, no ctx/ bleeding/LOF. Growth US today, EFW 54%. ANGÉLICA wnl. Needs Tdap vaccine. Also needs to see the dentist for tooth pain, will give dental letter today. Will start testing next visit for AMA and cHTN. Flowsheet Date 05/23/2023 Michele Score Blood Edema Fundus Height Fundus Units Glucose Ketones Leukocytes Nitrite Labor Signs Protein Cervic Dilation Cervic Effacement Cervic Station Type Weight in lbs Pre/Post Dialysis Refused BP Diastolic BP Location Tested BP Systolic BP Type Fetus Heart Rate Present Fetus Movement Comments Flowsheet Date 05/23/2023 Michele Score Blood Edema Fundus Height Fundus Units Glucose Ketones Leukocytes Nitrite Labor Signs Protein Cervic Dilation Cervic Effacement Cervic Station Type Weight in lbs Pre/Post Dialysis Refused BP Diastolic BP Location Tested BP Systolic BP Type Fetus Heart Rate Present Fetus Movement Comments Flowsheet Date 05/23/2023 Michele Score Blood Edema Fundus Height Fundus Units Glucose Ketones Leukocytes Nitrite Labor Signs Protein Cervic Dilation Cervic Effacement Cervic Station neg none none trace Type Weight in lbs Pre/Post Dialysis Refused Weight 153.685454425212 BP Diastolic BP Location Tested BP Systolic BP Type 74 110 Fetus Heart Rate Present Fetus Movement A Yes Comments patient is having some contr actions and nausea. NST BPP 10/10, doing well, friends telling her not to take meds and that was causing her anxiety so stopped asa and prental vitamin, anxiety resolved and panic attacks stopped. continue testing, very fatigued, check b12 and vit D, f/u one week Flowsheet Date 05/30/2023 Michele Score Blood Edema Fundus Height Fundus Units Glucose Ketones Leukocytes Nitrite Labor Signs Protein Cervic Dilation Cervic Effacement Cervic Station Type Weight in lbs Pre/Post Dialysis Refused BP Diastolic BP Location Tested BP Systolic BP Type Fetus Heart Rate Present Fetus Movement Comments Flowsheet Date 05/30/2023 Michele Score Blood Edema Fundus Height Fundus Units Glucose Ketones Leukocytes Nitrite Labor Signs Protein Cervic Dilation Cervic Effacement Cervic Station Type Weight in lbs Pre/Post Dialysis Refused BP Diastolic BP Location Tested BP Systolic BP Type Fetus Heart Rate Present Fetus Movement Comments Flowsheet Date 05/30/2023 Michele Score Blood Edema Fundus Height Fundus Units Glucose Ketones Leukocytes Nitrite Labor Signs Protein Cervic Dilation Cervic Effacement Cervic Station neg none none trace Type Weight in lbs Pre/Post Dialysis Refused Weight 152.055904028755 BP Diastolic BP Location Tested BP Systolic BP Type 65 106 Fetus Heart Rate Present Fetus Movement A Yes Comments patient is having some contr actions and nausea. bpp 8/8, efw 50%, doing well, rec dietary changes, pt hesitant to take meds/vitamins while , consider after delivery precautions and education f/u one week Flowsheet Date 06/06/2023 Michele Score Blood Edema Fundus Height Fundus Units Glucose Ketones Leukocytes Nitrite Labor Signs Protein Cervic Dilation Cervic Effacement Cervic Station Type Weight in lbs Pre/Post Dialysis Refused BP Diastolic BP Location Tested BP Systolic BP Type Fetus Heart Rate Present Fetus Movement Comments Flowsheet Date 06/06/2023 Michele Score Blood Edema Fundus Height Fundus Units Glucose Ketones Leukocytes Nitrite Labor Signs Protein Cervic Dilation Cervic Effacement Cervic Station Type Weight in lbs Pre/Post Dialysis Refused BP Diastolic BP Location Tested BP Systolic BP Type Fetus Heart Rate Present Fetus Movement Comments Flowsheet Date 06/06/2023 Michele Score Blood Edema Fundus Height Fundus Units Glucose Ketones Leukocytes Nitrite Labor Signs Protein Cervic Dilation Cervic Effacement Cervic Station none none trace Type Weight in lbs Pre/Post Dialysis Refused Weight 154.111554562560 BP Diastolic BP Location Tested BP Systolic BP Type 73 116 Fetus Heart Rate Present A 158 Fetus Movement A Yes Comments No problems, doing well. Goo d movement. BPP 10/10. follow up 1 week Flowsheet Date 06/13/2023 Michele Score Blood Edema Fundus Height Fundus Units Glucose Ketones Leukocytes Nitrite Labor Signs Protein Cervic Dilation Cervic Effacement Cervic Station Type Weight in lbs Pre/Post Dialysis Refused BP Diastolic BP Location Tested BP Systolic BP Type Fetus Heart Rate Present Fetus Movement Comments Flowsheet Date 06/13/2023 Michele Score Blood Edema Fundus Height Fundus Units Glucose Ketones Leukocytes Nitrite Labor Signs Protein Cervic Dilation Cervic Effacement Cervic Station Type Weight in lbs Pre/Post Dialysis Refused BP Diastolic BP Location Tested BP Systolic BP Type Fetus Heart Rate Present Fetus Movement Comments Flowsheet Date 06/13/2023 Michele Score Blood Edema Fundus Height Fundus Units Glucose Ketones Leukocytes Nitrite Labor Signs Protein Cervic Dilation Cervic Effacement Cervic Station Type Weight in lbs Pre/Post Dialysis Refused Weight 154.261323349100 BP Diastolic BP Location Tested BP Systolic BP Type 79 131 Fetus Heart Rate Present Fetus Movement A Yes Comments Good movement. Intermi ttent contractions. No VB or LOF. Transverse presentation, HMR. Discussed that given grand multiparity and vertex presentation last week, baby will likely spontaneously vert. Discussed ECV if persistent malpresentation. BPP 02/25. RTC 1 week, GBS next visit. Flowsheet Date 06/20/2023 Michele Score Blood Edema Fundus Height Fundus Units Glucose Ketones Leukocytes Nitrite Labor Signs Protein Cervic Dilation Cervic Effacement Cervic Station Type Weight in lbs Pre/Post Dialysis Refused BP Diastolic BP Location Tested BP Systolic BP Type Fetus Heart Rate Present Fetus Movement Comments Flowsheet Date 06/20/2023 Michele Score Blood Edema Fundus Height Fundus Units Glucose Ketones Leukocytes Nitrite Labor Signs Protein Cervic Dilation Cervic Effacement Cervic Station Type Weight in lbs Pre/Post Dialysis Refused BP Diastolic BP Location Tested BP Systolic BP Type Fetus Heart Rate Present Fetus Movement Comments Flowsheet Date 06/20/2023 Michele Score Blood Edema Fundus Height Fundus Units Glucose Ketones Leukocytes Nitrite Labor Signs Protein Cervic Dilation Cervic Effacement Cervic Station none 36 none trace 0cm Type Weight in lbs Pre/Post Dialysis Refused Weight 155.12674852014 BP Diastolic BP Location Tested BP Systolic BP Type 73 113 Fetus Heart Rate Present A 140 Fetus Movement A Yes Comments Good movement, feeling tired. No ctx, LOF, VB. Vertex! BPP 02/25. GBS collected today. RTC 1 week Flowsheet Date 06/27/2023 Michele Score Blood Edema Fundus Height Fundus Units Glucose Ketones Leukocytes Nitrite Labor Signs Protein Cervic Dilation Cervic Effacement Cervic Station Type Weight in lbs Pre/Post Dialysis Refused BP Diastolic BP Location Tested BP Systolic BP Type Fetus Heart Rate Present Fetus Movement Comments Flowsheet Date 06/27/2023 Michele Score Blood Edema Fundus Height Fundus Units Glucose Ketones Leukocytes Nitrite Labor Signs Protein Cervic Dilation Cervic Effacement Cervic Station Type Weight in lbs Pre/Post Dialysis Refused BP Diastolic BP Location Tested BP Systolic BP Type Fetus Heart Rate Present Fetus Movement Comments Flowsheet Date 06/27/2023 Michele Score Blood Edema Fundus Height Fundus Units Glucose Ketones Leukocytes Nitrite Labor Signs Protein Cervic Dilation Cervic Effacement Cervic Station neg none none trace 1cm Type Weight in lbs Pre/Post Dialysis Refused Weight 156.160947419724 BP Diastolic BP Location Tested BP Systolic BP Type 59 111 Fetus Heart Rate Present Fetus Movement A Yes Comments patient is having some contr actions and pressure. EFW 45%, bpp 10/10 doing well, consider yoga ball, continue walking pt would like to avoid induction but open if needs to do it, ok for nasal spray Flowsheet Date 07/04/2023 Michele Score Blood Edema Fundus Height Fundus Units Glucose Ketones Leukocytes Nitrite Labor Signs Protein Cervic Dilation Cervic Effacement Cervic Station Type Weight in lbs Pre/Post Dialysis Refused BP Diastolic BP Location Tested BP Systolic BP Type Fetus Heart Rate Present Fetus Movement Comments Flowsheet Date 07/04/2023 Michele Score Blood Edema Fundus Height Fundus Units Glucose Ketones Leukocytes Nitrite Labor Signs Protein Cervic Dilation Cervic Effacement Cervic Station Type Weight in lbs Pre/Post Dialysis Refused BP Diastolic BP Location Tested BP Systolic BP Type Fetus Heart Rate Present Fetus Movement Comments Flowsheet Date 07/04/2023 Michele Score Blood Edema Fundus Height Fundus Units Glucose Ketones Leukocytes Nitrite Labor Signs Protein Cervic Dilation Cervic Effacement Cervic Station neg none none trace 3cm 50% -3 Type Weight in lbs Pre/Post Dialysis Refused Weight 156.386079519927 BP Diastolic BP Location Tested BP Systolic BP Type 80 137 Fetus Heart Rate Present Fetus Movement A Yes Comments patient is having contractio ns. vertex, bpp 10/10 discussed early labor, precautions reviewed f/u one week or go to LD Menstrual History Last Menstrual Date Menses Monthly On Bcp Conception Prior Menses Frequency Hcg Plus Date Menarche Onset Age 0610/31/2022 Genetic Screening And Infection History Question Response Note Mental Retardation/Autism false Patient's Age Will Be 35 Years Or Older At Estim ated Date of Delivery true Thalassemia (English, Andorran, Mediterranean, Or Background): MCV < 80 false Neural Tube Defect (Meningomyelocele, Spina Bifi da, Or Anencephaly) false Congenital Heart Defect false Down Syndrome false Juan-Sachs (eg, Yazidi, Cajun, Croatian-Finnish) f alse Sissy Disease false Sickle Cell Disease Or Trait () false Hemophilia Or Other Blood Disorders false Muscular Dystrophy false Cystic Fibrosis false Montclair's Chorea false Intellectual Disability/Autism false If Yes, Was Person Tested For Fragile X? false Other Inherited Genetic Or Chromosomal Disorder false Maternal Metabolic Disorder (eg, Type 1 Diabetes , PKU) false Patient Or Baby's Father Had A Child With Defects Not Listed Above false Recurrent Loss, Or A Stillbirth false Medications (including Suppl ements, Vitamins, Herbs, OTC Drugs), Illicit/Recreational Drugs, Alcohol false If Yes, Agent(s) And Strength/Dosage false Any Other Genetic History false Live With Someone With TB Or Exposed To TB false Patient Or Partner Has History Of Genital Herpes false Rash Or Viral Illness Since Last Menstrual Perio d false History Of STD, Gonorrhea, Chlamydia, HPV, Syphi lis false Other Infection History false History of HIV false History of Hepatitis false Prior GBS-infected child false Hemoglobinopathy Or Carrier false Other Structural Defect false Recent Travel History Outside of Country false Delivery Information Delivery Date Delivery Type Labor Anesthesia Weeks Gestation Incision Type Labor Labor Length Hrs Delivered By Post Complications Tubal Sterilization Discharge Date Comments reji None 38.6 false Erica LópezM Advanced maternal age ,B lood glucose outside reference range,Chr onic hypertens ion in obstetric context,H erpes simplex,H istory of gestation al diabetes mellitus, Multigrav brandy,Rubel la non-immun e Discharge Information Feeding Method Contraceptive Method Maternal HG B and HCT Levels
[2025-03-09 20:31] LABS: Beta HCG Quantitative 9741.60 mIU/ML
--- OUTSIDE RECORDS SUMMARY | 2025-03-09 20:36 | XMS_ITS | Data Portability ---
Author Organization [facility] [place] Venita Address [address] [facility] [place] [address] Care Team Providers Care Cue Selector Name Role Phone RONEL CLEMONS Cigar Making Supervisor Unavailable Assessment No assessment recorded. Plan of Treatment Reminders Order Date Submit Date Provider Last Modified By Organization Details Last Modified Time Details Appointments NEW OB 30 2024 08:00A M Unassigned Not available Not available Not available Lab cobal arciniega and folat e panel , serum 2024 025 [facility], [address] [place] [address], [address], [place], [address], 10/28/2024 08:28:07 vitam in D, 25-hy droxy , total , serum 2024 025 [facility], [address] [place] [address], [address], [place], [address], 10/28/2024 08:28:09 iron + total iron- malorie ng capac ity (TIBC ), serum 2024 025 [facility], [address] [place] [address], [address], [place], [address], 10/28/2024 08:28:08 cultu re, urine 2024 025 [facility], [address] [place] [address], [address], [place], [address], 08/30/2024 19:12:08 urina lysis , dipst ick 2024 025 [email or web address] In-Office Order, Internal Use Only DO Not Attach Compendium DO Not Attach Compendium, Do Not Delete/merge, [id number] 08/25/2024 11:10:14 urina lysis , dipst ick 2024 025 [email or web address] In-Office Order, Internal Use Only DO Not Attach Compendium DO Not Attach Compendium, Do Not Delete/merge, 08/16/2024 10:23:46 cobal arciniega and folat e panel , serum 2024 025 [facility], [address] [place], [place] [address]michelle Greene, [address], [place], [address], 06/30/2024 07:20:38 iron + total iron- malorie ng capac ity (TIBC ), serum 2024 025 [facility], [address] [place], [place] [address]michelle Greene, [address], [place], [address], 08/24/2024 08:57:00 vitam in D, 25-hy droxy , total , serum 2024 025 [facility], [address] [place] [address] Jc, [address], [place], [address], 06/30/2024 07:20:42 lipid panel , serum 2024 025 [facility], [address] [place] [address], [address], [place], [address], 06/30/2024 07:20:35 CBC w/ auto diff 2024 025 [facility], [address] [place], [place] [address]michelel Greene, [address], [place], [address], 06/30/2024 07:20:40 CMP, serum or plasm a 2024 025 [facility], [address] [facility], [address], [place], [address], 06/30/2024 07:20:36 HbA1c (hemo globi n A1c), blood 2024 025 [facility], [address] [place] [address], [address], [place], [address], 06/30/2024 07:20:39 TSH + free T4, serum 2024 025 [facility], [address] [place] [address], [address], [place], [address], 06/30/2024 07:20:34 HIV 1 + 2, meani ngful use set 2024 025 [facility], [address] [place] [address], [address], [place], [address], 06/30/2024 07:20:43 Referral None recor ded. Procedures None recor ded. Surgeries None recor ded. Imaging US, lisa callahan id arter y 2024 025 [email or web address] [address], [place], [address], 02/28/2025 14:05:57 MRI, brain , w/wo contr ast 2024 025 [email or web address] [address], [place], [address], 02/28/2025 14:05:57 Medication Orders Adult Low Dose Aspir in 81 mg table t,del ayed relea se 2024 025 [facility], [address] [facility], [place], [address], 11/24/2024 10:42:45 famot idine 20 mg table t 2024 025 [facility], [address] [place], [address], 11/24/2024 10:42:45 nitro furan toin macro cryst al 100 mg capsu le 2024 025 [facility], [address] [place], [address], 10/27/2024 08:46:19 napro xen 500 mg table t 2024 025 [facility], [address] [place], [address], 10/27/2024 08:46:24 mecli zine 25 mg table t 2024 025 [facility], [address] [place], [address], 08/16/2024 09:39:25 Patient TargetsNo targets recorded. Patient Instructions Encounter Date Encounter Id Patient Instructions Last Modified By Organization Details Last Modified Time 06/24/2024 [id number] A healthy lifestyle: care instructions [email or web address] Not available 06/24/2024 13:09:13 mareos: instrucciones de cuidado - [dizziness: care instructions] [email or web address] Not available 06/24/2024 12:53:20 08/16/2024 [id number] Attending Physician Attestation S: 44 yo F here with new dysmenorrhea for last 2 cycles. Has monthly periods and not heavy, lasting 6-7 days. Last 1 year ago. Also has pain in rectum/sacral region when sitting on the toilet. No hematochezia, normal stool consistency, daily BMs. Was recommended to have EGD/colonoscopy after having baby. Has abnormal mammo to follow up on. O: BP 114/68. A/P: Dysmenorrhea - Discussed hormonal control, which patient declined. Trial naproxen during menses. RTC if no improvement with next few cycles. Abnormal mammo - Obtain insurance vs [facility] to complete workup. RTC in Feb for next co-testing. I did not personally see or examine the patient with the resident. I was physically present to provide indirect supervision through entire encounter. Plan discussed with resident as documented in my brief note above. Ronel Clemons MD [email or web address] Not available 08/16/2024 10:32:25 08/25/2024 [id number] A healthy lifestyle: care instructions [email or web address] Not available 08/25/2024 11:14:18 10/27/2024 [id number] A healthy lifestyle: care instructions [email or web address] Not available 10/27/2024 09:01:59 11/24/2024 [id number] A healthy lifestyle: care instructions [email or web address] Not available 11/24/2024 10:42:19 Reason for Referral None Reported. Results Created Date Observation Date Name Description Value Unit Range Abnormal Flag Note LastModifiedBy Organization Detail LastModifiedTime 06/14/1906/15/2024 NUA B VAGIN ITIS PLUS (VG+) atopobium vaginae LOW - 0 score Not Available [facility] ([facility]) [address] [place], [address], 06/16/2024 08:25:50 06/14/1906/15/2024 NUA B VAGIN ITIS PLUS (VG+) bvab 2 LOW - 0 score Not Available [facility] ([facility]) [address] [place], [address], 06/16/2024 08:25:50 06/14/1906/15/[facility] megasphaera 1 LOW - 0 score Calcu late total score by faizain g the 3 indiv idual bacte rial vagin osis (BV) marke r score s toget her. Total score is inter prete d as follo ws: Total score 0-1: Indic ates the absen ce of BV. Total score 2: Indet ermin ate for BV. Addit ional clini kavin data shoul d be evalu ated to estab che a diagn osis. Total score 3-6: Indic ates the prese nce of BV. Not Available [facility] ([facility]) [address] [facility], [place], [address], 06/16/2024 08:25:50 06/14/19 25 06/15/2024 NUA B VAGIN ITIS PLUS (VG+) brianne albicans, JESE NEGATI VE negati ve Not Available [facility] ([facility]) [address] [facility], [place], [address], 06/16/2024 08:25:50 06/14/1906/15/2024 NUA B VAGIN ITIS PLUS (VG+) brianne glabrata, JESE NEGATI VE negati ve Not Available [facility] ([facility]) [address] [facility], [place], [address], 06/16/2024 08:25:50 06/14/19 25 06/16/2024 NUA B VAGIN ITIS PLUS (VG+) trich vag by JESE NEGATI VE negati ve Not Available [facility] ([facility]) [address] [place], [address], 06/16/2024 08:25:50 06/14/1906/16/2024 NUA B VAGIN ITIS PLUS (VG+) chlamydia trachomatis, JESE NEGATI VE negati ve Not Available [facility] ([facility]) [address] [place], [address], 06/16/2024 08:25:50 06/14/1906/16/2024 NUA B VAGIN ITIS PLUS (VG+) neisseria gonorrhoeae, JESE NEGATI VE negati ve Not Available [facility] ([facility]) [address] [place], [address], 06/16/2024 08:25:50 06/14/19 25 06/14/2024 pregn kristin test, urine HCG negati ve Not Available In-Office Order Internal Use Only DO Not Attach Compendium DO Not Attach Compendium, Do Not Delete/merge, [id number] 06/14/2024 09:58:29 06/14/1906/14/2024 urina lysis , dipst ick Leukocytes Negati ve Not Available In-Office Order Internal Use Only DO Not Attach Compendium DO Not Attach Compendium, Do Not Delete/merge, [facility] 06/14/2024 09:57:52 06/14/1906/14/2024 urina lysis , dipst ick Nitrite negati ve Not Available In-Office Order Internal Use Only DO Not Attach Compendium DO Not Attach Compendium, Do Not Delete/merge, [facility] 06/14/2024 09:57:52 06/14/1906/14/2024 urina lysis , dipst ick Urobilinogen .2 Not Available In-Of fice Order Internal Use Only DO Not Attach Compendium DO Not Attach Compendium, Do Not Delete/merge, [facility] 06/14/2024 09:57:52 06/14/1906/14/2024 urina lysis , dipst ick Protein Negati ve Not Available In-Office Order Internal Use Only DO Not Attach Compendium DO Not Attach Compendium, Do Not Delete/merge, [id number] 06/14/2024 09:57:52 06/14/1906/14/2024 urina lysis , dipst ick pH 5.5 Not Available In-Office Order Internal Use Only DO Not Attach Compendium DO Not Attach Compendium, Do Not Delete/merge, [id number] 06/14/2024 09:57:52 06/14/1906/14/2024 urina lysis , dipst ick Blood Negati ve Not Available In-Office Order Internal Use Only DO Not Attach Compendium DO Not Attach Compendium, Do Not Delete/merge, [id number] 06/14/2024 09:57:52 06/14/1906/14/2024 urina lysis , dipst ick Specific [place] 1.030 Not Available In-Off ice Order Internal Use Only DO Not Attach Compendium DO Not Attach Compendium, Do Not Delete/merge, [facility] 06/14/2024 09:57:52 01/27/20 25 06/14/2024 urina lysis , dipst ick Ketone Negati ve Not Available In-Office Order Internal Use Only DO Not Attach Compendium DO Not Attach Compendium, Do Not Delete/merge, 06/14/2024 09:57:52 06/14/1906/14/2024 urina lysis , dipst ick Bilirubin Negati ve Not Available In-Office Order Internal Use Only DO Not Attach Compendium DO Not Attach Compendium, Do Not Delete/merge, 06/14/2024 09:57:52 06/14/1906/14/2024 urina lysis , dipst ick Glucose Negati ve Not Available In-Office Order Internal Use Only DO Not Attach Compendium DO Not Attach Compendium, Do Not Delete/merge, 06/14/2024 09:57:52 06/29/1906/30/2024 TSH+F REE T4 TSH 1.110 uIU/m L 0.450- 4.500 Not Available [facility] ([facility]) [address] [place], [address], 06/30/2024 07:20:34 06/29/19 25 06/30/2024 TSH+F REE T4 T4,free(dire ct) 1.03 NG/dL 0.82-1 .77 Not Available [facility] ([facility]) [address] [place], [address], 06/30/2024 07:20:34 06/29/19 25 06/30/2024 LIPID PANEL cholesterol, total 203 mg/dL 100-19 9 above high normal Not Available [facility] ([facility]) [address] [place], [address], 06/30/2024 07:20:35 06/29/19 25 06/30/2024 LIPID PANEL triglyceride s 128 mg/dL 0-149 Not Available [facility] ([facility]) [address] [place], [address], 06/30/2024 07:20:35 06/29/19 25 06/30/2024 LIPID PANEL HDL cholesterol 51 mg/dL >39 Not Available [facility]) [address] [place], [address], 06/30/2024 07:20:35 06/29/19 25 06/30/2024 LIPID PANEL VLDL cholesterol kavin 23 mg/dL 5-40 Not Available [facility] ([facility]) [address] [place], [address], 06/30/2024 07:20:35 06/29/19 25 06/30/2024 LIPID PANEL LDL chol calc ([facility]) 129 mg/dL 0-99 above high normal Not Available [facility] ([facility]) [address] [place], [address], 06/30/2024 07:20:35 06/29/19 25 06/30/2024 COMP. METAB OLIC PANEL (14) glucose 84 mg/dL 70-99 Not Available [facility] ([facility]) [address] [place], [address], 06/30/2024 07:20:36 06/29/19 25 06/30/2024 COMP. METAB OLIC PANEL (14) BUN 11 mg/dL 6-24 Not Available [facility] ([facility]) [address] [place], [address], 06/30/2024 07:20:36 06/29/19 25 06/30/2024 COMP. METAB OLIC PANEL (14) creatinine 0.66 mg/dL 0.57-1 .00 Not Available [facility] ([facility]) [address] [place], [address], 06/30/2024 07:20:36 06/29/19 25 06/30/2024 COMP. METAB OLIC PANEL (14) eGFR 112 mL/mi n/1.7 3 >59 Not Available [facility] ([facility]) [address] [place], [address], 06/30/2024 07:20:36 06/29/19 25 06/30/2024 COMP. METAB OLIC PANEL (14) BUN/creatini ne ratio 17 9-23 Not Available [facility] ([facility]) [address] [place], [address], 06/30/2024 07:20:36 06/29/19 25 06/30/2024 COMP. METAB OLIC PANEL (14) sodium 140 mmol/ L 134-14 4 Not Available [facility] ([facility]) [address] [place], [address], 06/30/2024 07:20:36 06/29/19 25 06/30/2024 COMP. METAB OLIC PANEL (14) potassium 4.0 mmol/ L 3.5-5. 2 Not Available [facility] ([facility]) [address] [place], [address], 06/30/2024 07:20:36 06/29/19 25 06/30/2024 COMP. METAB OLIC PANEL (14) chloride 100 mmol/ L 96-106 Not Available [facility] ([facility]) [address] [place], [address], 06/30/2024 07:20:36 06/29/19 25 06/30/2024 COMP. METAB OLIC PANEL (14) carbon dioxide, total 24 mmol/ L 20-29 Not Available [facility] ([facility]) [address] [place], [address], 06/30/2024 07:20:36 06/29/19 25 06/30/2024 COMP. METAB OLIC PANEL (14) calcium 9.2 mg/dL 8.7-10 .2 Not Available [facility] ([facility]) [address] [place], [address], 06/30/2024 07:20:36 06/29/19 25 06/30/2024 COMP. METAB OLIC PANEL (14) protein, total 7.2 g/dL 6.0-8. 5 Not Available [facility] ([facility]) [address] [facility] [place], [address], 06/30/2024 07:20:36 06/29/19 25 06/30/2024 COMP. METAB OLIC PANEL (14) albumin 4.5 g/dL 3.9-4. 9 Not Available [facility] ([facility]) [address] [facility] [place], [address], 06/30/2024 07:20:36 06/29/19 25 06/30/2024 COMP. METAB OLIC PANEL (14) globulin, total 2.7 g/dL 1.5-4. 5 Not Available [facility] ([facility]) [address] [facility] [place], [address], 06/30/2024 07:20:36 06/29/19 25 06/30/2024 COMP. METAB OLIC PANEL (14) bilirubin, total 0.3 mg/dL 0.0-1. 2 Not Available [facility] ([facility]) [address] [place], [address], 06/30/2024 07:20:36 06/29/19 25 06/30/2024 COMP. METAB OLIC PANEL (14) alkaline phosphatase 78 IU/L 44-121 Not Available [facility]) [address] [place], [address], 06/30/2024 07:20:36 06/29/19 25 06/30/2024 COMP. METAB OLIC PANEL (14) AST (SGOT) 15 IU/L 0-40 Not Available [facility] ([facility]) [address] [place], [address], 06/30/2024 07:20:36 06/29/19 25 06/30/2024 COMP. METAB OLIC PANEL (14) ALT (SGPT) 14 IU/L 0-32 Not Available [facility] ([facility]) [address] [facility], [place], [address], 06/30/2024 07:20:36 06/29/19 25 06/30/2024 VITAM IN B12 AND FOLAT E vitamin B12 834 pg/mL 232-12 45 Not Available [facility] ([facility]) [address] [facility], [place], [address], 06/30/2024 07:20:38 06/29/19 25 06/30/2024 VITAM IN B12 AND FOLAT E folate (folic acid), serum 16.7 NG/mL >3.0 A serum folat e sophie ntrat ion of less than 3.1 ng/mL is consi dered to repre sent clini kavin defic iency . Not Available [facility] ([facility]) [address] [facility], [place], [address], 06/30/2024 07:20:38 06/29/19 25 06/30/2024 HEMOG LOBIN A1C hemoglobin A1C 6.1 % 4.8-5. 6 above high normal Predi abete s: 5.7 - 6.4 Diabe polina: >6.4 Glyce pranav contr ol for adult s with diabe polina: <7.0 Not Available [facility] ([facility]) [address] [facility], [place], [address], 06/30/2024 07:20:39 06/29/19 25 06/29/2024 CBC WITH DIFFE RENTI AL/PL ATELE T WBC 8.7 x10e3 /uL 3.4-10 .8 Not Available [facility] ([facility]) [address] [place], [address], 06/30/2024 07:20:40 06/29/19 25 06/29/2024 CBC WITH DIFFE RENTI AL/PL ATELE T RBC 4.37 x10e6 /uL 3.77-5 .28 Not Available [facility] ([facility]) [address] [facility], [place], [address], 06/30/2024 07:20:40 06/29/19 25 06/29/2024 CBC WITH DIFFE RENTI AL/PL ATELE T hemoglobin 12.4 g/dL 11.1-1 5.9 Not Available [facility] ([facility]) [address] [place], [address], 06/30/2024 07:20:40 06/29/19 25 06/29/2024 CBC WITH DIFFE RENTI AL/PL ATELE T hematocrit 38.8 % 34.0-4 6.6 Not Available [facility] ([facility]) [address] [place], [address], 06/30/2024 07:20:40 06/29/19 25 06/29/2024 CBC WITH DIFFE RENTI AL/PL ATELE T MCV 89 fL 79-97 Not Available [facility] ([facility]) [address] [place], [address], 06/30/2024 07:20:40 06/29/19 25 06/29/2024 CBC WITH DIFFE RENTI AL/PL ATELE T MCH 28.4 pg 26.6-3 3.0 Not Available [facility] ([facility]) [address] [place], [address], 06/30/2024 07:20:40 06/29/19 25 06/29/2024 CBC WITH DIFFE RENTI AL/PL ATELE T MCHC 32.0 g/dL 31.5-3 5.7 Not Available [facility] ([facility]) [address] [place], [address], 06/30/2024 07:20:40 06/29/19 25 06/29/2024 CBC WITH DIFFE RENTI AL/PL ATELE T RDW 12.1 % 11.7-1 5.4 Not Available [facility] ([facility]) [address] [place], [address], 06/30/2024 07:20:40 06/29/19 25 06/29/2024 CBC WITH DIFFE RENTI AL/PL ATELE T platelets 353 x10e3 /uL 150-45 0 Not Available [facility] ([facility]) [address] [facility], [place], [address], 06/30/2024 07:20:40 06/29/19 25 06/29/2024 CBC WITH DIFFE RENTI AL/PL ATELE T neutrophils 64 % notest ab. Not Available [facility] ([facility]) [address] [facility], [place], [address], 06/30/2024 07:20:40 06/29/19 25 06/29/2024 CBC WITH DIFFE RENTI AL/PL ATELE T lymphs 30 % notest ab. Not Available [facility] ([facility]) [address] [facility], [place], [address], 06/30/2024 07:20:40 06/29/19 25 06/29/2024 CBC WITH DIFFE RENTI AL/PL ATELE T monocytes 5 % notest ab. Not Available [facility] ([facility]) [address] [facility], [place], [address], 06/30/2024 07:20:40 06/29/19 25 06/29/2024 CBC WITH DIFFE RENTI AL/PL ATELE T eos 1 % notest ab. Not Available [facility] ([facility]) [address] [facility], [place], [address], 06/30/2024 07:20:40 06/29/19 25 06/29/2024 CBC WITH DIFFE RENTI AL/PL ATELE T basos 0 % notest ab. Not Available [facility] ([facility]) [address] [facility], [place], [address], 06/30/2024 07:20:40 06/29/19 25 06/29/2024 CBC WITH DIFFE RENTI AL/PL ATELE T neutrophils (absolute) 5.5 x10e3 /uL 1.4-7. 0 Not Available [facility] ([facility]) [address] [place], [address], 06/30/2024 07:20:40 06/29/19 25 06/29/2024 CBC WITH DIFFE RENTI AL/PL ATELE T lymphs (absolute) 2.6 x10e3 /uL 0.7-3. 1 Not Available [facility] ([facility]) [address] [place], [address], 06/30/2024 07:20:40 06/29/19 25 06/29/2024 CBC WITH DIFFE RENTI AL/PL ATELE T monocytes(ab solute) 0.4 x10e3 /uL 0.1-0. 9 Not Available [facility] ([facility]) [address] [facility], [place], [address], 06/30/2024 07:20:40 06/29/19 25 06/29/2024 CBC WITH DIFFE RENTI AL/PL ATELE T eos (absolute) 0.1 x10e3 /uL 0.0-0. 4 Not Available [facility] ([facility]) [address] [place], [address], 06/30/2024 07:20:40 06/29/19 25 06/29/2024 CBC WITH DIFFE RENTI AL/PL ATELE T baso (absolute) 0.0 x10e3 /uL 0.0-0. 2 Not Available [facility] ([facility]) [address] [place], [address], 06/30/2024 07:20:40 06/29/19 25 06/29/2024 CBC WITH DIFFE RENTI AL/PL ATELE T immature granulocytes 0 % notest ab. Not Available [facility] ([facility]) [address] [place], [address], 06/30/2024 07:20:40 06/29/19 25 06/29/2024 CBC WITH DIFFE RENTI AL/PL ATELE T immature grans (abs) 0.0 x10e3 /uL 0.0-0. 1 Not Available [facility] ([facility]) [address], [place], [address], 06/30/2024 07:20:40 06/29/19 25 06/30/2024 VITAM IN D, 25-HY DROXY vitamin D, 25-hydroxy 25.0 NG/mL 30.0-1 00.0 below low normal Vitam in D defic iency has been defin ed by the Insti tute of Medic ine and an Endoc rine Socie ty pract ice guide line as a level of serum 25-OH vitam in D less than 20 ng/mL (1,2) . The Endoc rine Socie ty went on to furth er defin e vitam in D insuf ficie ncy as a level betwe en 21 and 29 ng/mL (2). 1. IOM (Inst itute of Medic ine). 2009. Dieta ry refer ence araceli es for calci um and D. Leon araya [place]: [facility] . 2. Iveth chery MF, Abhay horta [place], Bart off-F errar i CHAPARRO, et al. Evalu ation , treat ment, and preve ntion of vitam in D defic iency : an Endoc rine Socie ty clini kavin pract ice guide line. JCEM. 2010; 96(7) :1911 -30. Not Available [facility] ([facility]) [address], [place], [address], 06/30/2024 07:20:42 06/29/19 25 06/30/2024 HIV AB/P2 4 AG WITH REFLE X HIV Ab/P24 Ag screen NON REACTI VE nonrea ctive HIV-1 /HIV- 2 antib odies and HIV-1 p24 antig en were NOT detec reji. There is no labor atory evide nce of HIV infec tion. HIV Negat sonia Not Available [facility] ([facility]) [address] [facility], [place], [address], 06/30/2024 07:20:43 08/17/19 25 08/16/2024 urina lysis , dipst ick Leukocytes Negati ve Not Available In-Office Order Internal Use Only DO Not Attach Compendium DO Not Attach Compendium, Do Not Delete/merge, [facility] 08/16/2024 10:03:31 08/17/19 25 08/16/2024 urina lysis , dipst ick Nitrite negati ve Not Available In-Office Order Internal Use Only DO Not Attach Compendium DO Not Attach Compendium, Do Not Delete/merge, [facility] 08/16/2024 10:03:08/17/19 25 08/16/2024 urina lysis , dipst ick Urobilinogen .2 Not Available In-Of fice Order Internal Use Only DO Not Attach Compendium DO Not Attach Compendium, Do Not Delete/merge, [facility] 08/16/2024 10:03:31 08/17/19 25 08/16/2024 urina lysis , dipst ick Protein Negati ve Not Available In-Office Order Internal Use Only DO Not Attach Compendium DO Not Attach Compendium, Do Not Delete/merge, [facility] 08/16/2024 10:03:31 08/17/19 25 08/16/2024 urina lysis , dipst ick pH 7.0 Not Available In-Office Order Internal Use Only DO Not Attach Compendium DO Not Attach Compendium, Do Not Delete/merge, [facility] 08/16/2024 10:03:31 08/17/19 25 08/16/2024 urina lysis , dipst ick Blood Hemoly zed: Trace Not Available In-Office Order Internal Use Only DO Not Attach Compendium DO Not Attach Compendium, Do Not Delete/merge, [facility] 08/16/2024 10:03:31 08/17/19 25 08/16/2024 urina lysis , dipst ick Specific [place] 1.015 Not Available In-Off ice Order Internal Use Only DO Not Attach Compendium DO Not Attach Compendium, Do Not Delete/merge, 08/16/2024 10:03:08/17/19 25 08/16/2024 urina lysis , dipst ick Ketone Negati ve Not Available In-Office Order Internal Use Only DO Not Attach Compendium DO Not Attach Compendium, Do Not Delete/merge, 08/16/2024 10:03:08/17/19 25 08/16/2024 urina lysis , dipst ick Bilirubin Negati ve Not Available In-Office Order Internal Use Only DO Not Attach Compendium DO Not Attach Compendium, Do Not Delete/merge, 08/16/2024 10:03:08/17/19 25 08/16/2024 urina lysis , dipst ick Glucose Negati ve Not Available In-Office Order Internal Use Only DO Not Attach Compendium DO Not Attach Compendium, Do Not Delete/merge, 08/16/2024 10:03:08/24/19 25 08/24/2024 IRON AND TIBC iron bind.cap.(TI BC) 415 ug/dL 250-45 0 Not Available [facility] ([facility]) [address] [place], [address], 08/24/2024 08:57:00 08/24/19 25 08/24/2024 IRON AND TIBC UIBC 363 ug/dL 131-42 5 Not Available [facility] ([facility]) [address] [place], [address], 08/24/2024 08:57:00 08/24/19 25 08/24/2024 IRON AND TIBC iron 52 ug/dL 27-159 Not Available [facility] ([facility]) [address] [place], [address], 08/24/2024 08:57:00 08/24/19 25 08/24/2024 IRON AND TIBC iron saturation 13 % 15-55 below low normal Not Available [facility] ([facility]) [address] [place], [address], 08/24/2024 08:57:00 08/26/19 25 08/30/2024 URINE CULTU RE, ROUTI NE urine culture, routine FINAL REPORT abnormal Not Available [facility] ([facility]) [address] [facility], [place], [address], 08/30/2024 19:12:08 08/26/19 25 08/30/2024 URINE CULTU RE, ROUTI NE result 1 ESCHER ICHIA COLI abnormal 50,00 0-100 ,000 colon y formi ng units per mL Cefaz tacho with an PRANAV <=16 predi cts susce ptibi lity to the oral agent s cefac tahir, cefdi willa, cefpo doxim e, cefpr ozil, cefur oxime , cepha lexin , and lorac arbef when used for thera py of uncom plica reji urina ry tract infec tions due to E. coli, Klebs iella pneum oniae , and Prote us mirab ilis. Not Available [facility] ([facility]) [address] [facility], [place], [address], 08/30/2024 19:12:08 08/26/1908/30/2024 URINE CULTU RE, ROUTI NE antimicrobia l susceptibili ty COMMEN T S = Susce ptibl e; I = Inter media te; R = Resis tant P = Posit sonia; N = Negat sonia MICS are expre ssed in micro grams per mL Antib iotic RSLT# 1 RSLT# 2 RSLT# 3 RSLT# 4 Amoxi cilli n/Cla vulan ic Acid S Ampic illin R Cefaz tacho S Cefep jose daniel S Cefox itin S Cefpo doxim e S Ceftr iaxon e S Cipro floxa missy S Ertap enem S Genta micin S Levof loxac in S Merop enem S Nitro furan toin S Piper acill in/Ta zobac pleitez S Tetra cycli ne S Tobra mycin S Trime thopr im/[place]udson lfa S Not Available [facility] ([facility]) [address] [facility], [place], [address], 08/30/2024 19:12:08 08/26/1908/25/2024 urina lysis , dipst ick Leukocytes Trace Not Available In-Offi ce Order Internal Use Only DO Not Attach Compendium DO Not Attach Compendium, Do Not Delete/merge, 08/25/2024 11:08:37 08/26/19 25 08/25/2024 urina lysis , dipst ick Nitrite negati ve Not Available In-Office Order Internal Use Only DO Not Attach Compendium DO Not Attach Compendium, Do Not Delete/merge, 08/25/2024 11:08:37 08/26/1908/25/2024 urina lysis , dipst ick Urobilinogen .2 Not Available In-Of fice Order Internal Use Only DO Not Attach Compendium DO Not Attach Compendium, Do Not Delete/merge, 08/25/2024 11:08:37 08/26/19 25 08/25/2024 urina lysis , dipst ick Protein Negati ve Not Available In-Office Order Internal Use Only DO Not Attach Compendium DO Not Attach Compendium, Do Not Delete/merge, 08/25/2024 11:08:37 08/26/1908/25/2024 urina lysis , dipst ick pH 6.5 Not Available In-Office Order Internal Use Only DO Not Attach Compendium DO Not Attach Compendium, Do Not Delete/merge, 08/25/2024 11:08:37 08/26/19 25 08/25/2024 urina lysis , dipst ick Blood Small Not Available In-Office Order Internal Use Only DO Not Attach Compendium DO Not Attach Compendium, Do Not Delete/merge, 08/25/2024 11:08:37 08/26/19 25 08/25/2024 urina lysis , dipst ick Specific [place] 1.010 Not Available In-Off ice Order Internal Use Only DO Not Attach Compendium DO Not Attach Compendium, Do Not Delete/merge, 08/25/2024 11:08:37 08/26/19 25 08/25/2024 urina lysis , dipst ick Ketone Negati ve Not Available In-Office Order Internal Use Only DO Not Attach Compendium DO Not Attach Compendium, Do Not Delete/merge, [id number] 08/25/2024 11:08:37 08/26/19 25 08/25/2024 urina lysis , dipst ick Bilirubin Negati ve Not Available In-Office Order Internal Use Only DO Not Attach Compendium DO Not Attach Compendium, Do Not Delete/merge, [id number] 08/25/2024 11:08:37 08/26/19 25 08/25/2024 urina lysis , dipst ick Glucose Negati ve Not Available In-Office Order Internal Use Only DO Not Attach Compendium DO Not Attach Compendium, Do Not Delete/merge, [facility] 08/25/2024 11:08:37 08/26/19 25 08/25/2024 urina lysis , dipst ick Appearance Clear Not Available In-Offi ce Order Internal Use Only DO Not Attach Compendium DO Not Attach Compendium, Do Not Delete/merge, [facility] 08/25/2024 11:08:37 08/26/19 25 08/25/2024 urina lysis , dipst ick Color Pale Yellow Not Available In-Office Order Internal Use Only DO Not Attach Compendium DO Not Attach Compendium, Do Not Delete/merge, [facility] 08/25/2024 11:08:37 10/28/19 25 10/28/2024 VITAM IN B12 AND FOLAT E vitamin B12 889 pg/mL 232-12 45 Not Available [facility] ([facility]) [address] [facility], [place], [address], 10/28/2024 08:28:06 10/28/19 25 10/28/2024 VITAM IN B12 AND FOLAT E folate (folic acid), serum 19.6 NG/mL >3.0 A serum folat e sophie ntrat ion of less than 3.1 ng/mL is consi dered to repre sent clini kavin defic iency . Not Available [facility] ([facility]) [address] [facility], [place], [address], 10/28/2024 08:28:06 10/28/19 25 10/28/2024 IRON AND TIBC iron bind.cap.(TI BC) 440 ug/dL 250-45 0 Not Available [facility] ([facility]) [address] [facility], [place], [address], 10/28/2024 08:28:08 10/28/19 25 10/28/2024 IRON AND TIBC UIBC 357 ug/dL 131-42 5 Not Available [facility] ([facility]) [address] [facility], [place], [address], 10/28/2024 08:28:08 10/28/19 25 10/28/2024 IRON AND TIBC iron 83 ug/dL 27-159 Not Available [facility] ([facility]) [address] [facility], [place], [address], 10/28/2024 08:28:08 10/28/1910/28/2024 IRON AND TIBC iron saturation 19 % 15-55 Not Available [facility] ([facility]) [address] [facility], [place], [address], 10/28/2024 08:28:08 10/28/1910/28/2024 VITAM IN D, 25-HY DROXY vitamin D, 25-hydroxy 93.1 NG/mL 30.0-1 00.0 Vitam in D defic iency has been defin ed by the Insti tute of Medic ine and an Endoc rine Socie ty pract ice guide line as a level of serum 25-OH vitam in D less than 20 ng/mL (1,2) . The Endoc rine Socie ty went on to furth er defin e vitam in D insuf ficie ncy as a level betwe en 21 and 29 ng/mL (2). 1. IOM (Inst itute of Medic ine). 2010. Dieta ry refer ence araceli es for calci um and D. Leon araya [place]: The Natio nal [facility] Press . 2. Holic k MF, Abhay horta [place], Bart off-F errar i CHAPARRO, et al. Evalu ation , treat ment, and preve ntion of vitam in D defic iency : an Endoc rine Socie ty clini kavin pract ice guide line. JCEM. 2010; 96(7) :1911 -30. Not Available [facility] ([facility]) [address] [facility] [place], [address], 10/28/2024 08:28:09 11/23/19 25 11/23/2024 TSH+F REE T4 TSH 1.890 uIU/m L 0.450- 4.500 Not Available [facility] ([facility]) [address] [facility] [place], [address], 11/23/2024 06:16:07 11/23/19 25 11/23/2024 TSH+F REE T4 T4,free(dire ct) 1.09 NG/dL 0.82-1 .77 Not Available [facility] ([facility]) [address] [facility] [place], [address], 11/23/2024 06:16:07 11/23/19 25 11/22/2024 COMP. METAB OLIC PANEL (14) sodium 140 mmol/ L 134-14 4 Not Available [facility] ([facility]) [address] [facility] [place], [address], 11/23/2024 06:16:08 11/23/19 25 11/22/2024 COMP. METAB OLIC PANEL (14) potassium 4.1 mmol/ L 3.5-5. 2 Not Available [facility] ([facility]) [address] [facility] [place], [address], 11/23/2024 06:16:08 11/23/19 25 11/22/2024 COMP. METAB OLIC PANEL (14) chloride 102 mmol/ L 96-106 Not Available [facility] ([facility]) [address] [place], [address], 11/23/2024 06:16:08 11/23/19 25 11/22/2024 COMP. METAB OLIC PANEL (14) albumin 4.5 g/dL 3.9-4. 9 Not Available [facility] ([facility]) [address] [place], [address], 11/23/2024 06:16:08 11/23/19 25 11/22/2024 COMP. METAB OLIC PANEL (14) ALT (SGPT) 15 IU/L 0-32 Not Available [facility] ([facility]) [address] [place], [address], 11/23/2024 06:16:08 11/23/19 25 11/23/2024 COMP. METAB OLIC PANEL (14) glucose 91 mg/dL 70-99 Not Available [facility] ([facility]) [address] [facility], [place], [address], 11/23/2024 06:16:08 11/23/19 25 11/23/2024 COMP. METAB OLIC PANEL (14) BUN 14 mg/dL 6-24 Not Available [facility] ([facility]) [address] [place], [address], 11/23/2024 06:16:08 11/23/19 25 11/23/2024 COMP. METAB OLIC PANEL (14) creatinine 0.75 mg/dL 0.57-1 .00 Not Available [facility] ([facility]) [address] [facility] [place], [address], 11/23/2024 06:16:08 11/23/19 25 11/23/2024 COMP. METAB OLIC PANEL (14) eGFR 102 mL/mi n/1.7 3 >59 Not Available [facility] ([facility]) [address] [place], [address], 11/23/2024 06:16:08 11/23/19 25 11/23/2024 COMP. METAB OLIC PANEL (14) BUN/creatini ne ratio 19 9-23 Not Available [facility] ([facility]) [address] [facility] [place], [address], 11/23/2024 06:16:08 11/23/19 25 11/23/2024 COMP. METAB OLIC PANEL (14) carbon dioxide, total 21 mmol/ L 20-29 Not Available [facility] ([facility]) [address] [facility] [place], [address], 11/23/2024 06:16:08 11/23/19 25 11/23/2024 COMP. METAB OLIC PANEL (14) calcium 9.2 mg/dL 8.7-10 .2 Not Available [facility] ([facility]) [address] [facility] [place], [address], 11/23/2024 06:16:08 11/23/19 25 11/23/2024 COMP. METAB OLIC PANEL (14) protein, total 7.2 g/dL 6.0-8. 5 Not Available [facility] ([facility]) [address] [place], [address], 11/23/2024 06:16:08 11/23/19 25 11/23/2024 COMP. METAB OLIC PANEL (14) globulin, total 2.7 g/dL 1.5-4. 5 Not Available [facility] ([facility]) [address] [place], [address], 11/23/2024 06:16:08 11/23/19 25 11/23/2024 COMP. METAB OLIC PANEL (14) bilirubin, total 0.3 mg/dL 0.0-1. 2 Not Available [facility] ([facility]) [address] [place], [address], 11/23/2024 06:16:08 11/23/19 25 11/23/2024 COMP. METAB OLIC PANEL (14) alkaline phosphatase 68 IU/L 44-121 Not Available [facility] ([facility]) [address] [facility], [place], [address], 11/23/2024 06:16:08 11/23/19 25 11/23/2024 COMP. METAB OLIC PANEL (14) AST (SGOT) 18 IU/L 0-40 Not Available [facility] ([facility]) [address] [facility], [place], [address], 11/23/2024 06:16:08 11/23/19 25 11/23/2024 HEMOG LOBIN A1C hemoglobin A1C 6.0 % 4.8-5. 6 above high normal Predi abete s: 5.7 - 6.4 Diabe polina: >6.4 Glyce pranav contr ol for adult s with diabe polina: <7.0 Not Available [facility] ([facility]) [address] [facility], [place], [address], 11/23/2024 06:16:08 05/28/19 25 05/27/2024 MAMMO , scree james, bilat eral No observ ation record ed. [address], [address], 07/05/2024 09:53:22 10/02/19 25 10/01/2024 MAMMO , diagn ostic , digit al, bilat eral No observ ation record ed. [address], [address], 11/02/2024 14:27:48 Result Notes None recorded. Problems Name Problem SNOMED Code Status Onset Date Resolution Date Notes Provider Name and Address Organization Details Recorded Time Blood glucose outside referenc e range 894042240 Completed 03/02/2020 SHAGGY Gastelum 0 13:24:56 Amenorrh ea 09617892 Completed 10/19/2018 SHAGGY Gastelum 9 16:46:29 Body mass index 25-29 - overweig 140605456 Completed Alcira Dillon MD Attn: Accounting ,[address] [place], [address] , [place] - [facility] 2 12:15:44 Epigastr ic pain 76017539 Completed 10/19/2018 Kt Hopkinsman [place], [place] - [facility] 9 16:47:10 Pain of breast 93230325 Completed 10/19/2018 Kt fritz[place] [facility] 9 16:47:03 Left sided chest pain 817766091 Completed 10/19/2018 Kt [place] [facility] 9 16:46:37 Vaginiti s 50906227 Completed 10/19/2018 Kt [place]ritz[place] [facility] 9 16:46:41 Suprapub ic pain 561336298 Completed 10/19/2018 Kt frizt [place] - [facility] 9 16:46:33 [facility] 25-29 [facility] Active Alcira Dillon MD Attn: Accounting ,[address] [place], [address] , [place] [facility] 2 12:15:44 Fatigue 35162414 Completed 10/19/2018 Kt fritz[place] [facility] 9 16:47:14 Heart murmur 44668074 Completed 10/19/2018 Kt fritz[place] [facility] 9 16:47:18 Mass of soft tissue 856322504 Completed 10/19/2018 Kt Tila [place] [facility] 9 16:46:59 Pregnanc y 80219302 Completed 201810/19/2018 Kt Hopkinsman [place] [facility] 0 13:25:00 Bacteria l vaginosi s 511947266 Completed 2018 Alcira Dillon MD Attn: Accounting ,[address] [place], [address] , [place] [facility] 0 11:44:27 Bacteria l vaginosi s 639228880 Active 2018 Alcira Dillon MD Attn: Accounting ,[address] [place], [address] , [place] [facility] 0 11:44:27 Advanced maternal age 433172697 Completed 2018 Alcira Dillon MD Attn: Accounting ,[address] [place], [address] , [place] [facility] 0 11:44:27 Advanced maternal age 577884538 Active 2018 Alcira Dillon MD Attn: Accounting ,[address] [place], [address] , [place] [facility] 2 12:15:44 Advanced maternal age 152464624 Completed 2018 Alcira Dillon MD Attn: Accounting ,[address] [place], [address] , [place] [facility] 2 12:15:44 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 917012502 Completed 2018 Alcira Dillon MD Attn: Accounting ,[address] [place], [address] , [place] [facility] 0 11:44:27 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 686821749 Active 2018 Alcira Dillon MD Attn: Accounting ,[address] [place], [address] , [place] [facility] 2 12:15:44 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 304855314 Completed 2018 Alcira Dillon MD Attn: Accounting ,[address] [place], [address] , [place] [facility] 2 12:15:44 Pregnanc y 88499683 Completed 201903/02/2020 Kt Adorno [place] [facility] 0 13:25:00 Gastroes ophageal reflux disease 423729077 Active 2019 Alcira Dillon MD Attn: Accounting ,[address] [facility], [place], [address] , [place] [facility] 2 12:15:44 Gastroes ophageal reflux disease 000857073 Completed 2019 Alcira Dillon MD Attn: Accounting ,[address] [facility], [place], [address] , [place] [facility] 2 12:15:44 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 Alcira Dillon MD Attn: Accounting ,[address] [facility], [place], [address] , [facility] - [facility] 2 12:15:44 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 [id number] 9102 Completed 2019 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 Alcira Dillon MD Attn: Accounting ,[address] [place], [address] , [facility] - [facility] 2 12:15:44 Past pregnanc y history of gestatio nal diabetes mellitus 488235278 Active 2023 RON SULLIVAN MD Attn: Accounting ,[address] [place], [address] , [facility] - [facility] 4 14:25:49 Screenin g mammogra phy of bilatera l breasts Active 2023 RON SULLIVAN MD Attn: Accounting ,[address] [facility], [place], [address] , [facility] - [facility] 4 14:25:50 Acute pelvic pain 319774466 Active 2023 RON SULLIVAN MD Attn: Accounting ,[address] [place], [address] , [facility] - [facility] 4 14:25:52 Vitamin D deficien cy 59422991 Active 2024 THOMAS ALDRICH PA-C Attn: Accounting ,[address] [facility], [place], [address] , [place] - [facility] 5 11:40:53 Mixed hyperlip idemia 045439217 Active 2024 THOMAS ALDRICH PA-C Attn: Accounting ,[address] [facility], [place], [address] , [facility] - [facility] 5 11:40:57 Prediabe polina 336413502 Active 2024 THOMAS ALDRICH PA-C Attn: Accounting ,[address] [facility], [place], [address] , [facility] - [facility] 5 11:40:59 Problem Notes None recorded. Procedures Surgical History Date Name Laterality Status Provider Name and Address Organization Details Recorded Time 0 Date of Last Pap Smear completed Mili Garcia MA [place] - [facility] 07/09/2022 10:18:32 8 IUD Removal completed Eden Canseco MD Attn: Accounting,[address] [facility], [place], [address], [place] [facility] 08/25/2017 11:35:05 Imaging Results None recorded. Procedure Notes None recorded. Medical Equipment None Reported. Allergies No known drug allergies Medications Name Sig Start Date Stop Date Status Note LastModified by Organization Details LastModified Time multivitami n tablet Take 1 tablet every day by oral route. 05/14 completed Not Available Not Available Not Available acetaminoph en 325 mg tablet Take 2 tablets every 6 hours by oral route as needed. 07/09 completed Not Available Not Available Not Available Vitamin B-6 25 mg tablet Take 1 tablet every 6 hours by oral route. 07/09 completed Not Available Not Available Not Available nystatin 100,000 unit/gram topical ointment 06/14 completed Not Available Not Available Not Available fluconazole 150 mg tablet TAKE 1 TABLET BY MOUTH NOW AND THEN ONE IN 48 HOURS 06/14 completed Not Available Not Available Not Available valacyclovi r 1 gram tablet 07/09 completed Not Available Not Available Not Available valacyclovi r 500 mg tablet TAKE 1 TABLET BY MOUTH TWICE DAILY 06/24 completed Not Available Not Available Not Available acyclovir 800 mg tablet Take 1 tablet twice a day by oral route. 07/09 completed Not Available Not Available Not Available Vitamin tablet Take 1 tablet every day by oral route as directed for 90 days. 06/14 completed Not Available Not Available Not Available Metrogel Vaginal 0.75 % (37.5 mg/5 gram) Insert 1 applicato rful every day by vaginal route for 5 days. 06/26 completed Not Available Not Available Not Available famotidine 20 mg tablet Take 1 tablet twice a day by oral route for 30 days. 2024 active Not Available Not Available Not Avai lable OneTouch Ultra Test strips USE 1 STRIP TO CHECK GLUCOSE TO CHECK GLUCOSE 4 TIMES DAILY 06/24 completed Not Available Not Available Not Available Flagyl 500 mg tablet Take 1 tablet twice a day by oral route for 7 days. 04/29 completed Not Available Not Available Not Available meclizine 25 mg tablet TAKE 1 TABLET BY MOUTH THREE TIMES DAILY 08/16 completed Not Available Not Available Not Available cyanocobala min (vit B-12) 1,000 mcg/mL injection solution Inject 1 mL every month by subcutane ous route as needed. 07/09 completed Not Available Not Available Not Available ferrous sulfate 325 mg (65 mg iron) tablet Take 1 tablet 3 times a day by oral route. 02/07 completed Not Available Not Available Not Available nitrofurant oin macrocrysta l 100 mg capsule TAKE 1 CAPSULE BY MOUTH EVERY 12 HOURS FOR 7 DAYS 10/27 completed Not Available Not Available Not Available triamcinolo ne acetonide 0.1 % topical ointment 02/01 completed Not Available Not Available Not Available ranitidine 150 mg tablet Take 1 tablet every day by oral route. 07/09 completed Not Available Not Available Not Available progesteron e micronized 200 mg capsule Take 1 capsule twice a day by oral route. 05/14 completed Not Available Not Available Not Available omeprazole 20 mg capsule,del ayed release TAKE 1 CAPSULE BY MOUTH ONCE DAILY 06/14 completed Not Available Not Available Not Available folic acid 1 mg tablet Take 2 tablets twice a day by oral route. 07/09 completed Not Available Not Available Not Available ergocalcife rol (vitamin D2) 1,250 mcg (50,000 unit) capsule TAKE 1 CAPSULE BY MOUTH ONCE A WEEK 06/24 completed Not Available Not Available Not Available ibuprofen 600 mg tablet TAKE 1 TABLET BY MOUTH THREE TIMES DAILY 07/09 completed Not Available Not Available Not Available ondansetron 4 mg disintegrat ing tablet DISSOLVE 1 TABLET IN MOUTH EVERY 8 HOURS NEEDED FOR NAUSEA AND VOMITING 06/14 completed Not Available Not Available Not Available naproxen 500 mg tablet TAKE 1 TABLET BY MOUTH TWICE DAILY 10/27 completed Not Available Not Available Not Available metoclopram alea 10 mg tablet Take 1 tablet 4 times a day by oral route. 07/09 completed Not Available Not Available Not Available amoxicillin 875 mg-potassiu m clavulanate 125 mg tablet TAKE 1 TABLET BY MOUTH EVERY 12 HOURS 02/01 completed Not Available Not Available Not Available Adult Low Dose Aspirin 81 mg tablet,kael yed release Take 1 tablet every day by oral route for 30 days. 2024 active Not Available Not Available Not Avai lable Vitamin 27 mg iron-0.8 mg tablet Take 1 tablet every day by oral route. 04/22 completed Not Available Not Available Not Available Tablet 28 mg iron-800 mcg Take 1 tablet every day by oral route. 02/07 completed Not Available Not Available Not Available peg 3350-electr olytes 236 gram-22.74 gram-6.74 gram-5.86 gram solution TAKE DIRECTED 06/14 completed Not Available Not Available Not Available cholecalcif edyd (vitamin D3) 1,250 mcg (50,000 unit) capsule TAKE 1 CAPSULE BY MOUTH ONCE A WEEK active Not Available Not Available No t Available Calcium with Vitamin D3 600 mg (carbonate) -10 mcg (400 unit) capsule Take 1 capsule twice a day by oral route. 07/09 completed Not Available Not Available Not Available Calcium with Vitamin D 600 mg-10 mcg (400 unit) tablet Take 1 tablet every day by oral route. 07/09 completed Not Available Not Available Not Available PNV-Select 27 mg-1 mg tablet Take 1 tablet every day by oral route. 05/14 completed Not Available Not Available Not Available Nexplanon 68 mg subdermal implant Inject 1 implant by subcutane ous route. 04/29 completed Not Available Not Available Not Available 28 mg iron-800 mcg tablet TAKE 1 TABLET BY MOUTH ONCE DAILY 07/09 completed Not Available Not Available Not Available Classic 28 mg iron-800 mcg tablet 07/09 completed Not Available Not Available Not Available Vitamins Plus Low Iron 27 mg iron-1 mg tablet 05/14 completed Not Available Not Available Not Available OneTouch Ultra2 Meter USE DIRECTED 06/24 completed Not Available Not Available Not Available OneTouch Delica Plus Lancet 33 gauge USE 1 TO CHECK GLUCOSE TO CHECK GLUCOSE 4 TIMES DAILY 06/24 completed Not Available Not Available Not Available ID NOW COVID-19 Test Kit TEST DIRECTED TODAY 07/09 completed Not Available Not Available Not Available Vitals Date Recorded Body height Body mass index (BMI) Body weight Oxygen saturation Oxygen saturation in Arterial blood by Pulse oximetry Heart rate Body temperature Systolic And Diastolic Provider Name and Address Organization Details Last Updated DateTime 5 157.48 cm 27.6 kg/m2 24274.7 3 g 96 % 96 % 68 /min 98.2 [degF] 122/72 mm[Hg] Lucila Contreras [place] - [facility] 11:57:55 Date Recorded Body height Body mass index (BMI) Body weight Systolic And Diastolic Provider Name and Address Organization Details Last Updated DateTime 08/16/2024 157.48 cm 27.3 kg/m2 75985.26 g 114/68 mm[Hg] Alpa Giles [place] - [facility] 08/16/2024 09:43:52 Date Recorded Body height Body mass index (BMI) Body weight Oxygen saturation Oxygen saturation in Arterial blood by Pulse oximetry Heart rate Body temperature Systolic And Diastolic Provider Name and Address Organization Details Last Updated DateTime 5 157.48 cm 27.1 kg/m2 31079.7 5 g 98 % 98 % 60 /min 98.4 [degF] 122/72 mm[Hg] Lucila Contreras MA [facility] 5 11:12:54 Date Recorded Body height Body mass index (BMI) Body weight Oxygen saturation Oxygen saturation in Arterial blood by Pulse oximetry Heart rate Systolic And Diastolic Provider Name and Address Organization Details Last Updated DateTime 5 157.48 cm 27.3 kg/m2 12836.2 6 g 97 % 97 % 70 /min 114/72 mm[Hg] Rochelle Carcamo MA [facility] 5 08:49:52 Date Recorded Body height Body mass index (BMI) Body weight Oxygen saturation Oxygen saturation in Arterial blood by Pulse oximetry Heart rate Body temperature Systolic And Diastolic Provider Name and Address Organization Details Last Updated DateTime 5 157.48 cm 27.6 kg/m2 42088.4 5 g 97 % 97 % 75 /min 98.6 [degF] 112/66 mm[Hg] Rochelle Carcamo MA [facility] 5 10:05:27 Social History Question Answer Notes LastModified by Organizat ion Details LastModified Time Tobacco Smoking Status Never Smoker Beny fritz, [facility] 06/10/2014 10:52:54 Do You Have An Advance Directive? No Information not available 04/28/2015 If You Are , What Was Your Level Of Alcohol Consumption Prior To ? None Information not available 06/26/2018 Is Blood Transfusion Acceptable In An Emergency? Yes Information not available 05/22/2018 What Is Your Level Of Caffeine Consumption? Occasional Information not available 06/10/2014 Live With Cats/exposure To Cat Litter No Information not available 06/26/2018 How Much Tobacco Do You Chew? None Information not available 08/29/2015 What Type Of Diet Are You Following? REGULAR Information not available 04/28/2015 Which Illicit Or Recreational Drugs Have You Used? No Information not available 04/28/2015 Education 11 Information no t available 04/28/2015 Have There Been Any Changes To Your Family Or Social Situation? No Information no t available 06/26/2018 Frequent Air Travel No Information not available 06/26/2018 Are There Any Guns Present In Your Home? No Information not available 04/28/2015 Hard Of Hearing Or Deaf In One Or Both Ears? No Information not available 04/28/2015 Illicit Drugs Pre- None Information not available 06/26/2018 Legally Blind In One Or Both Eyes? No Information no t available 04/28/2015 Live Alone Or With Others? With Others Information not available 04/28/2015 Marital Status Unknown Informatio n not available 06/26/2018 What Was The Date Of Your Most Recent Tobacco Screening? 08/16/2024 Information not available 08/16/2024 How Many Children Do You Have? 6 Information not available 03/02/2020 Performs Monthly Self-breast Exam? No Information no t available 05/22/2018 Do You Use Protection During Sex? No Information not available 04/28/2015 What Is Your Relationship Status? Information not available 06/14/2024 Seat Belts Used Routinely Yes Information not available 04/28/2015 Are You Sexually Active? Yes Information not available 04/28/2015 Smoke Alarm In Home Yes Information not available 04/28/2015 Do You Have Smoke And Carbon Monoxide Detectors In Your Home? Yes Information not available 06/26/2018 Are You Passively Exposed To Smoke? No Information no t available 08/29/2015 How Much Tobacco Do You Smoke? No Information not available 08/29/2015 Smoking Pre- No Information not available 06/26/2018 General Stress Level Low [email or web address] Information not available 10/24/2017 Do You Use Sunscreen Routinely? Yes Information not available 08/29/2015 Supplements Information n ot available 06/26/2018 Has Tobacco Cessation Counseling Been Provided? Yes Information not available 06/14/2024 On What Date Was Tobacco Cessation Counseling Provided? 08/16/2024 Information not available 08/16/2024 How Many Years Have You Smoked Tobacco? 0 Information not available 03/02/2020 Sex: Unknown Functional Status Question Answer Note LastModified by Organizat ion Details LastModified Time Do you use any illicit or recreational drugs? No Information not available 06/14/2024 Do you or have you ever used any other forms of tobacco or nicotine? No Information not available 06/14/2024 What is your level of alcohol consumption? None Information not available 06/10/2014 Do you or have you ever used smokeless tobacco? Never used smokeless tobacco Information not available 03/02/2020 Are you currently employed? No Information not available 04/28/2015 Are you able to care for yourself independently? Yes Information not available 04/28/2015 What is your occupation? none Information not available 03/02/2020 Do you or have you ever used e-cigarettes or vape? Never used electronic cigarettes Information not available 03/02/2020 What is your exercise level? Occasional Information not available 04/28/2015 Mental Status None recorded. Family History Relationship Description Onset Age of this Age Resolved Age Notes LastModified by Organization Details LastModified Time Father No current problems or disability [email or web address] Not available 06/17 13:02:31 Mother No current problems or disability eewig Not available 06/17 13:02:31 Medical History Condition Response Other N High Blood Pressure N Breast Cancer N Depression N Blood Clots N Lung Disease N Breast Problem N Anesthesia Complications N Headaches/Migraines N Anxiety Disorder N Muscle, Joint, or Bone Problems N Polyps N Infertility N Acid Reflux (GERD) N Cancer N Endometriosis N High Cholesterol N Liver Disease N Thyroid Problems N Kidney or Bladder Problems N GI Problems N Acne N Eating Disorder N Anemia N Diabetes Y Ovarian Cancer N Blood Transfusions N Seizures/Epilepsy N Abuse/Domestic Violence N Asthma N Hepatitis N Heart Disease N Pre-Eclampsia N Osteoporosis N Gynecological History Statement/Question Response Abnormal Pap N Flow Moderate Date of LMP 08/09/2024 STIs/STDs N HPV Vaccine N Duration of Flow (days) 7 Age at Menarche 17 Current Control Method None Age at First Child 23 Sexually Active? Y Menses Monthly Y Date of Last Pap Smear 03/02/2020 Sexual Problems? N LMP Approximate Desired Control Method Unknown Obstetrics History GPAL:G 8 P 6 0 2 6 Type Value Multiple Births 0 Full Term 6 Induced 0 Spontaneous 2 Premature 0 Living 6 Ectopics 0 Total 8 Immunizations Vaccine Type Date Status Note Provider Nam e and Address Organization Details Recorded Time Influenza, split virus, trivalent, preservative 5 completed Not Available [facility] 06/05/2019 02:32:02 Influenza, split virus, quadrivalent, preservative 6 completed Not Available [facility] 06/05/2019 02:32:31 Tdap 5 completed Not Available [facility] 11/24/2024 09:55:29 MMR 5 completed Not Available [facility] 11/24/2024 09:55:29 Influenza, split virus, quadrivalent, PF 5 completed Not Available [facility] 11/24/2024 09:55:29 Tdap 9 completed Not Available [facility] 11/24/2024 09:55:29 Tdap 1 completed Not Available [facility] 11/24/2024 09:55:29 COVID-19, mRNA, LNP-S, PF, 30 mcg/0.3 mL dose 1 completed Not Available [facility] 11/24/2024 09:55:29 COVID-19, mRNA, LNP-S, PF, 30 mcg/0.3 mL dose 1 completed Not Available [facility] 11/24/2024 09:55:29 Tdap 3 completed Not Available [facility] 11/24/2024 09:55:29 Influenza, split virus, quadrivalent, PF 4 completed Not Available [facility] 11/24/2024 09:55:29 Influenza, split virus, quadrivalent, preservative 8 completed Not Available [facility] 06/05/2019 02:34:55 Tdap 8 completed Not Available [facility] 06/05/2019 02:34:54 Influenza, split virus, quadrivalent, preservative 8 completed Not Available [facility] 06/05/2019 02:36:58 Influenza, split virus, quadrivalent, PF 9 completed Not Available [facility] 06/05/2019 02:38:48 HPV9 9 completed Not Available [facility] 06/05/2019 02:38:48 HPV9 0 completed Mili Garcia MA null, [facility] 07/02/2019 13:08:29 Influenza, split virus, quadrivalent, PF 0 completed Ivaniamaya Mcfarlane MA null, [facility] 03/02/2020 14:00:59 Past Encounters Encounter ID Performer Location Encounter Start Date Encounter Closed Date Diagnosis/Indication Diagnosis SNOMED-CT Code Diagnosis ICD10 Code Diagnosis IMO Codes Diagnosis Note [id number] [address] [place] [address] 06/10/2014 10:31:28 06/10/2014 11:21:59 Fatigue 86883970 Heart murmur 59033293 R/o anemia or thyroid disease Past pregn kristin history of gestational diabetes mellitus 991250113 Mass of soft tissue 334127270 DD distributi on of subcutaneo us fat, lipoma, cyst. Given that it fluctuates in size and does not bother patient I recommend watchful waiting and she agrees to POC. Needs infl uenza immunization 491399973 [id number] CLARICE Jolley giovanna [address] [place] [address] 06/27/2014 11:01:38 06/27/2014 11:38:37 Amenorrhea 63061389 List of SENIOR QUALITY ASSURANCE ENGINEER and CNM given. Staff will assist with MPE. [id number] Ankush Jenkins MD [facility] [address] [place] [address] 04/28/2015 14:10:08 04/28/2015 17:09:44 Epigastric pain 21504737 R10.13 Possible gallbladde r issue vs hiatal hernia vs gastritis Will order US - she just completed [facility] Care applicatio n today Advised that if the pain worsens, she has n/v/hemopt ysis to go directly to the ED - [facility]- because of the Feli Care applicatio n Will also try ranitidine BID for possible gastritis RTC as need WIll likely refer to GI d/t pain once US is received Past pregn kristin history of gestational diabetes mellitus 751832318 Z86.32 hx/o gestationa l DM - she would like to be checked for this today [id number] MD Rusty Price (Adult Med) [address] [place] [phone] 05/26/2015 11:57:49 05/26/2015 13:45:03 Epigastric pain 52681424 R10.13 Will refer to GI Abdominal US WNL Will have patient recomplete feli care form today because it is not in the computer; however, she was told at [facility] that everything was fine concerning the form Blood gluc ose outside reference range 561462148 R73.09 Recheck a1c in 6 months Pain of breast 52288100 N64.4 Left breast stopped producing milk; right breast continues to produce milk Recently had a child Advised to f/u with OBGYN if any complicati ons or the pain continues but told her that if she favors one breast over the other than that is a likely cause of one breast to stop producing milk [id number] Rosalva Hayes MD [facility] [address] [place] [phone] 06/16/2015 14:14:34 06/16/2015 16:41:06 Left sided chest pain 798485383 R07.9 Advised pt to continue ranitidine one more month. Discuss use of nsaid with pediatrici an(pt breast feeding). Will consider EGD if no change or worsening of sx [id number] MD Rusty Woodward (Adult Med) [address] [place] [address] 08/29/2015 10:57:52 08/29/2015 11:38:47 Vaginitis 33680716 N76.0 Advised to not clean with luffa or handtowel - advised to use her hand and shampoo from her hair [id number] MD Rusty Woodward (Adult Med) [address] [place] [phone] 02/08/2016 11:10:36 02/08/2016 12:04:38 Suprapubic pain 043775507 R10.33 patient to complete [employer] applicatio n today She would like to proceed with pelvic US today Advised ibuprofen or Midol for pain - she has an IUD placed by Dr. Francis Will determine f/u based on US Active or passive immunization 204141149 Z23 Body mass index 25-29 - overweight 708682798 Z68.29 BMI: 26 Advised 30 minutes of exercise 5 days/week [facility] [id number] MD Rusty Mcgrath (Adult Med) [address] [place] [phone] 0 06/17/2017 12:15:12 06/17/2017 13:37:42 Active or passive immunization 011755498 Z23 Blood gluc ose outside reference range 313059622 R73.09 last a1c: 6.0 Fatigue 97175227 R53.83 Will check labs Venereal d isease screening 328727256 Z11.3 Body mass index 25-29 - overweight 680971295 Z68.29 BMI: 25.7 Advised 30 minutes of exercise 5 days/week Advised to [place] [facility] [id number] MD Rusty Rahman (SENIOR QUALITY ASSURANCE ENGINEER) [address] [place] [id number] 08/25/2017 09:34:26 08/25/2017 11:35:25 Gynecologic examination 42066761 Z01.419 Age appropriat e counseling done. Overweight 823052182 E66 .3 Counseled About weight loss, diet and excercise. Patient refused sock and stocking ironer consult. Venereal d isease screening 003456320 Z11.3 Patient recently did the labs. Family gavin nning surveillance 824940039 Z30.09 Counseled patient about different forms of control methods including Condoms, OCPS, Depo Provera, Nuva ring, patch, Nexplanon, IUD, -- etc. she opted Nexplanon. counseled about risks and benefits of it and also return of fertility. safe sex counseling and advised to use condoms. Urine test negative today. Advised patient to make an appointmen t when she is on her period. Patient verbalized understand ing. Removal of intrauterine device 93933058 Z30.432 refer to procedure note [id number] MD Rusty Rahman (SENIOR QUALITY ASSURANCE ENGINEER) [address] [place] [phone] 10/24/2017 12:36:51 10/27/2017 12:35:46 Pain in pelvis 15522283 R10.2 COUNSELED ABOUT IT. NO PID TODAY Bacterial vaginosis 4197 70592 N76.0 COUNSELED ABOUT IT. Family gavin nning surveillance 032556471 Z30.09 Patient say she does not want nexplanon and she say her is getting vasectomy. [id number] MD Rusty Mcgr[facility] (Adult Med) [address] [place] [phone] 0 04/29/2018 10:36:05 04/30/2018 09:44:26 Active or passive immunization 752840113 Z23 Blood gluc ose outside reference range 193101823 R73.09 last a1c: 6.0 At [facility] ed risk of sexually transmitted infection 928898985 Z20.2 Missed period 23427699 N 92.5 test positive 846010352 Z32.01 LMP around 03/19/18 - MIGEL: 12/23/18advi sed no ibuprofen, alcohol [id number] MD Rusty Rahman (SENIOR QUALITY ASSURANCE ENGINEER) [address] [place] [phone] 05/22/2018 14:02:35 05/25/2018 11:21:23 Routine care 338623976 Z34.91 Threatened miscarriage 52774585 O20.0 Counseled about it. Advised patient to go to ER if any pelvic pain, vaginal bleeding or fever > 100.4. Advised pelvic rest. Acid reflux 350644035 K2 1.9 Counseled about it. Morning sickness 7668246 6 O21.9 Counseled about it and small frequent meals. [id number] MD Rusty Rahman (SENIOR QUALITY ASSURANCE ENGINEER) [address] [place] [phone] 0 06/05/2018 09:57:54 06/09/2018 15:54:38 Routine care 690573429 Z34.91 Bacterial vaginosis 4197 75201 N76.0 Counseled thoroughly about it. Counseled about importance of filling the prescripti on. Also counseled about risks of untreated BV like PTL, PTD, . Patient verbalized understand ing. Acid reflux 441678713 K2 1.9 Counseled about it. Advanced m aternal age 735836939 O09.511 Counseled about it. Upper abdominal pain 831 07212 R10.10 Possible from acid reflex. Counseled thoroughly about it. Thyroid st imulating hormone level below reference range 479095027 R94.6 Counseled thoroughly about it. Gave patient order for TSH, free T4. [id number] MD Rusty Rahman (SENIOR QUALITY ASSURANCE ENGINEER) [address] [place] [address] 0 06/10/2018 10:06:47 06/10/2018 15:40:37 Routine care 781312692 Z34.91 Upper abdominal pain 831 23906 R10.10 Counseled thoroughly about it. Since not improved by zantac GI referral and ultrasound abdomen Genital He rpes simplex type 1 infection 035122286 A60.00 Counseled about it and safe sex. Advised patient to report out breaks. Answered all questions. Thyroid st imulating hormone level below reference range 448860838 R94.6 Counseled thoroughly about it. Gave patient order for TSH, free T4. [id number] Eden Canseco MD [facility] (SENIOR QUALITY ASSURANCE ENGINEER) [address] [place] [phone] 0 06/26/2018 10:34:39 06/29/2018 10:31:11 Routine care 267377761 Z34.[address] imulating hormone level below reference range 553025171 R94.6 Counseled thoroughly about it. Gave patient order for TSH, free T4. Genital He rpes simplex type 1 infection 849127365 A60.00 Counseled about it and safe sex. Advised patient to report out breaks. Answered all questions. Upper abdominal pain 831 75740 R10.10 Improving. Counseled about importance of doing abdominal ultrasound and f/u with GI. [id number] MD Rusty Rahman (SENIOR QUALITY ASSURANCE ENGINEER) [address] [place] [phone] 0 07/16/2018 10:45:05 07/16/2018 14:07:07 Routine care 116059141 Z34.91 Acid reflux 446881112 K2 1.9 Counseled about it. Nausea 661478083 R11.0 Counseled about it. Possible from acid reflex. Discussed with patient ultrasound result which is normal. [id number] MD Rusty Madsen (SENIOR QUALITY ASSURANCE ENGINEER) [address] [place] [phone] 0 10/19/2018 16:08:51 10/19/2018 18:09:34 Advanced maternal age 621218651 O09.523 Genital He rpes simplex type 1 infection 717325647 A60.00 Routine an tenatal care 905315782 Z34.83 Heartburn 40780861 R12 [id number] MD Rusty Madsen (SENIOR QUALITY ASSURANCE ENGINEER) [address] [place] [address] [phone] 0 04/22/2019 12:40:28 04/23/2019 10:05:02 care 932807241 Z39.2 Administra tion of influenza vaccine 50847823 Z23 Family gavin nning surveillance 417122015 Z30.09 Administra tion of viral vaccine 12728754 Z23 Advanced m aternal age 263998633 O09.971 [id number] MD Rusty Madsen (SENIOR QUALITY ASSURANCE ENGINEER) [address] [place] [id number] 0 07/02/2019 11:56:33 07/05/2019 10:44:17 Active or passive immunization 271623561 Z23 [id number] MD Rusty Madsen (SENIOR QUALITY ASSURANCE ENGINEER) [address] [place] [phone] 0 03/02/2020 12:39:54 03/07/2020 12:41:04 Administration of influenza vaccine 05004442 Z23 Routine an tenatal care 529001043 Z34.90 Venereal d isease screening 982382896 Z11.3 screening 2437 67648 Z36.85 Advanced m aternal age 181441346 O09.519 Sore throat 382258541 J0 2.9 [id number] MD Rusty Madsen (SENIOR QUALITY ASSURANCE ENGINEER) [address] [place] [phone] 0 04/26/2020 11:12:59 05/03/2020 11:00:47 Routine care 802595193 Z34.90 Advanced m aternal age 377481708 O09.519 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 Discussed SBEColonos copy: start screening at 47STI screening: declinedCo ntraceptio n: trying to conceiveDi et/exercis e: Counseled regarding importance of physical activity, healthy diet, appropriat e calcium intake, and daily PNV Past pregn kristin history of miscarriage 949561081 Z87.59 Pt has been TTC since miscarriag e in Dec 2021. She reports irregular periods since miscarriag e and some abdominal/ back pain. Will follow up with labs and TVUS. Discussed cycle tracking, using OPKs, timed intercours e, and difficulty conceiving at 42. Screening for malignant neoplasm of breast 206941614 Z12.31 [id number] MD Rusty DOBSON (SENIOR QUALITY ASSURANCE ENGINEER) [address] [place] [address] [phone] 0 02/02/2024 09:59:09 02/18/2024 09:25:45 Acute pelvic pain 671077412 R10.2 Patient reports significan t pain to bilateral ovarian regions since last night. No vaginal bleeding or discharge. Has never had this pain with prior pregnancie s. Differenti als include UTI, PID, ovarian cyst, ovarian tumor, adenomyosi s, endometrio sis. Patient had MRI on 01/30/24, pending results. Will obtain nuswab, beta-hcg, and UA. Screening mammography of bilateral breasts 6833903165 61442 Z12.31 Patient is due for screening mammogram. Will place order. Past pregn kristin history of gestational diabetes mellitus 748669894 Z86.32 Patient had gestationa l diabetes during previous and would like A1c checked. Denies any increased thirst or urination, but states she has felt weird over the past week and wants her A1c checked. [id number] MD Rusty DOBSON (SENIOR QUALITY ASSURANCE ENGINEER) [address] [place] [address] [phone] 0 06/14/2024 09:33:12 06/23/2024 15:53:37 Asymmetric breast tissue 097082376 R92.8 Mammogram showing possible right sided mass and right axillary lymph adenopathy .Recs diagnostic mammo and US.-will order diagnostic mammogram and breast US Vaginal irritation 20680 6004 N89.8 3 week history of vaginal irritation . Does have discharge with no smell.-erich l get NuSwab and treat accordingl y. [id number] [facility] [address] [place] [address] [phone] 0 06/24/2024 11:46:10 06/29/2024 13:35:01 Dizziness 445489666 R42 Labs orderedSta rt meclizine 25mg TID PRN Adult heal th examination 179792893 Z00.00 Routine labs ordered Overweight 379246190 E66 .3 BMI 27.6 [id number] MD Rusty DOBSON (SENIOR QUALITY ASSURANCE ENGINEER) [address] [place] [id number] 0 08/16/2024 09:28:24 08/17/2024 09:43:33 Dysmenorrhea 196268566 N94.6 naproxen 500 mg initially, followed by 250 to 500 mg every 12 hoursOnly been last 2 periodsWil l try conservati ve treatment first. Did discuss hormonal options but patient very hesistantI f no improvemen t, follow up in 2 months to get USNo insurance at this time, has contacts to get set up Abdominal bloating 68760 9008 R14.0 Discussed over the counter simethicon e Asymmetric breast tissue 307188233 R92.8 Mammogram showing possible right sided mass and right axillary lymph adenopathy .diagnosti c mammogram and breast US orders printed out today [id number] MD Rusty Lagunas (Adult Med) [address] [place] [address] [phone] 0 08/25/2024 10:40:11 08/26/2024 15:31:29 Acute urinary tract infection 550359302 N39.0 UA dip joint today Urine culture sent out Start nitrofuran toin 100 mg 1 twice a day for 7 days Overweight 840739996 E66 .3 BMI 27.1 [id number] MD Rusty Lagunas (Adult Med) [address] [place] [address] 82142-675 0 10/27/2024 08:30:52 10/28/2024 09:58:39 Depression screening 087052116 Z13.31 7703371 PHQ9- Negative (2 out of 27) Mental hea lth screening 716806259 Z13.30 5700921393 GAD7- Negative (3 out of 21) Overweight 688484954 E66 .3 BMI 27.3 Fatigue 01135418 R53.83 [id number] Labs today- will contact pt with results [id number] MD Rusty Lagunas (Adult Med) [address] [place] [address] [phone] 0 11/24/2024 09:53:30 01/28/2025 15:01:40 Depression screening 145387863 Z13.31 [id number] PHQ9- Negative (2 out of 27) Mental hea lth screening 222601735 Z13.30 8031135933 GAD7- Negative (3 out of 21) Overweight 999823464 E66 .3 BMI 27.3 Gastroesop hageal reflux disease without esophagitis 917264103 K21.9 655435 Start famotidine 20 mg b.i.d. Eye / vision finding 118 747887 H53.9 5187486 Ultrasound of carotids bilaterall y ordered MRI brain with and without contrast ordered Occipital headache 21756 7 R51.9 62392167 Start low-dose aspirin 81 mg daily Health Concerns Section Related Observation LastModified by Organization Detai ls LastModified Time None Recorded Concern Status LastModified by Organization Details LastModified Time None Recorded Advance Directives Directive N: Payers Insurance Date Sequence Insurance Name Policy Number Policy Olmedo Covered Member ID Olmedo Member ID Guarantor Name 11/24/2024 SLIDING FEE SCHEDULE - DISCOUNT Sadia Julio Cesar 02/02/2024 1 [place] [facility] Sadia Julio Cesar [id number] Sadia Julio Cesar 02/02/2024 1 [facility] - DOS PRIOR TO 2020 (MEDICAID REPLACEMENT - HMO) Sadia Julio Cesar [id number] Sadia Julio Cesar 05/03/2020 1 *SELF PAY* De lfina Julio Cesar 05/08/2021 SLIDING FEE SCHEDULE - DISCOUNT Sadia Julio Cesar 02/02/2024 2 [place] [facility] Sadia Julio Cesar [id number] Sadia Julio Cesar 02/02/2024 2 [employer] [facility] [place] - DOS ON OR AFTER 2020 (MEDICAID REPLACEMENT - HMO) Sadia Julio Csear [id number] Sadia Julio Cesar 08/16/2024 1 [facility] (MEDICAID HMO) [id number] Sadia Julio Cesar [id number] Sadia Julio Cesar 06/17/2017 SLIDING FEE SCHEDULE - DISCOUNT Sadia Julio Cesar 12/03/2015 PAYMENT PLAN Sadia Julio Cesar 06/26/2018 1 *SELF PAY* De lfina Julio Cesar 11/22/2024 1 [facility] (MEDICAID HMO) [id number] Sadia Julio Cesar [id number] Sadia Julio Cesar 11/22/2024 1 [place] [facility] MONICA Sadia Julio Cesar [id number] Sadia Julio Cesar 11/22/2024 1 *SELF PAY* De lfina Julio Cesar 08/25/2024 1 *SELF PAY* De lfina Julio Cesar 08/25/2024 SLIDING FEE SCHEDULE - DISCOUNT Sadia Julio Cesar 11/16/2024 SLIDING FEE SCHEDULE - DISCOUNT Sadia Julio Cesar 10/23/2017 SLIDING FEE SCHEDULE - DISCOUNT Sadia Julio Cesar 12/16/2019 SLIDING FEE SCHEDULE - DISCOUNT Sadia Julio Cesar Notes Date Note Type Note Provider Name and Address Organization Details Recorded Time 06/24/2024 text/html ROS as noted in the HPI 44-year-old female here complaining of dizziness and chills that happens almost every night. Patient states she also has some dizziness during the day. Patient denies any CP, nausea vomiting diarrhea. Patient states she does have some headaches. Has taken some tylenol for CHAPARRO relief. Pt was dx with prediabetes during most recent . Has not checked blood sugars post . THOMAS ALDRICH PA-C Attn: [address] [place], [address], [facility] 06/24/2024 13:09:50 08/16/2024 text/html ROS as noted in the HPI She states shes been having really painful cramps on her period for the last 2 periods.Has not tried any medication for the pain.2 pads during the day on her heaviest dayPeriods are normal intervalsLast 7 daysMore bloatedFeels pain in her lower back when she is sitting down only during her period No issues with BMs, goes once per day and it is soft and normal. RONEL CLEMONS MD Attn: [address] [facility], [place], [address], [facility] 08/16/2024 12:32:05 08/25/2024 text/html 44-year-old female here for UTI symptoms patient states symptoms started yesterday. Patient is having burning with urination and increased urinary frequency. Patient denies any vaginal discharge. THOMAS ALDRICH PA-C Attn: [address] [place], [address], [facility] 08/25/2024 11:14:35 10/27/2024 text/html ROS as noted in the HPI Pt has been feeling dizzy in the morning. States when she wakes up she is fine but then when she gets up she start feeling dizzy. There is no dizziness when she turns her head or when she gets up from sitting position. She states she also feels fatigued most of the time, with no energy to do anything.She has also been experiencing headaches this week. Took tylenol and the pain went away. Pt denies visual disturbances, CP, SOB, N/V/D. THOMAS ALDRICH PA-C Attn: [address] , [place], [address], [facility] 10/27/2024 12:47:25 11/24/2024 text/html ROS as noted in the HPI 44 y/o F here for f/u. Pt states she feels disoriented. States that every day she feels as if she is not in her body. States this has been going on since the of her last child. She does remember that when symptoms started she had a headache to posterior aspect of R side of head. CHAPARRO is described as a numbing sensation. Patient has not had that headache since. She has been having some blurry vision, states that she was given glasses to wear but that she has not noticed a difference. Last appt with flute teacher was 4 months ago. Pt is also c/o GERD like symptoms. States that she feels a burning sensation to mid epigastric area that climbs to throat and feels like she cannot talk at times. Pt states is worse after eating certain foods. Molly Pedro MD Attn: [address] , [place], [address], [facility] 01/28/2025 14:56:04 OBGyn Episode Ob Episode Information Episode Created Date Number of Fetuses Patient Bloodtype Patient rh Status Prepregnancy Weight lbs Domestic Partner Domestic Partner Phone Father Name Hand Rigger Status 05/22/19 19 1 O Positive CLOSED Fetus Data First Name Last Name Admitted to NICU Weight (g) Sex Living Outcome Pediatric Complications Fetus ID Race Codes Race Delivery Type Reed Bunn n [phone] F true Full Term [id number] White Standard Vaginal Delivery Problems Problem Notes [facility] in [place] [facility] ped [facility], [facility] none due to orthodoxy, ncb, vag . both breast and bottle feeding, combination. baby girl per ultrasound no name yet 10/19/2018 mds Problem Name Start Date End Date Resolution Snomed Code Not e Advanced maternal age 06/05/2018 [id number] Bacterial vaginosis 05/26/2018 [id number] Genital Herpes simplex type 1 infection 06/09/2018 [id number] Migel Calculation Initial Migel Date Initial Exam Date Initial Exam Provider Initial Ultrasound Date Last Menstrual Period Date Ultra Sound Weeks Gestation 12/23/2018 05/22/2018 [email or web address] 06/04/2018 03/19/2018 11 Eighteen To Twenty Week Migel Update Ultra Sound Date Fundal Height At Umbil Quickening Date Ultra Sound Latest Weeks Gestation Final Migel Confirmed By Final Migel Confirmed Date Final Migel Date Ultra Sound Latest Days Gestation 0 [email or web address] 06/15/2018 12/24/19 19 0 Pre- Flowsheet Flowsheet Date 05/22/2018 Michele Score Blood Edema Fundus Height Fundus Units Glucose Ketones Leukocytes Nitrite Labor Signs Protein Cervic Dilation Cervic Effacement Cervic Station trace none 9 cm none negative Cramping neg 0cm 0 % -4 Type Weight in lbs Pre/Post Dialysis Refused Weight 139.893428743731 BP Diastolic BP Location Tested BP Systolic BP Type 72 116 sitting Fetus Heart Rate Present Fetus Movement A No Comments Flowsheet Date 06/05/2018 Michele Score Blood Edema Fundus Height Fundus Units Glucose Ketones Leukocytes Nitrite Labor Signs Protein Cervic Dilation Cervic Effacement Cervic Station neg none 12 cm none negative Other (see comments ) neg 0cm 0% -4 Type Weight in lbs Pre/Post Dialysis Refused Weight 140.937641698142 BP Diastolic BP Location Tested BP Systolic BP Type 68 100 sitting Fetus Heart Rate Present A 154 Present Fetus Movement A No Comments UPPER ABDOMINAL PAIN, ACID R EFLEX. Flowsheet Date 06/10/2018 Michele Score Blood Edema Fundus Height Fundus Units Glucose Ketones Leukocytes Nitrite Labor Signs Protein Cervic Dilation Cervic Effacement Cervic Station neg none none negative Other (see comments ) neg Type Weight in lbs Pre/Post Dialysis Refused Weight 141.024498448571 BP Diastolic BP Location Tested BP Systolic BP Type 62 100 sitting Fetus Heart Rate Present A 154 Present Fetus Movement A No Comments upper abdominal pain - GI re ferral. Flowsheet Date 06/26/2018 Michele Score Blood Edema Fundus Height Fundus Units Glucose Ketones Leukocytes Nitrite Labor Signs Protein Cervic Dilation Cervic Effacement Cervic Station neg none none negative none neg Type Weight in lbs Pre/Post Dialysis Refused Weight 142.127638235434 BP Diastolic BP Location Tested BP Systolic BP Type 64 96 sitting Fetus Heart Rate Present A 153 Present Fetus Movement A No Comments Flowsheet Date 07/16/2018 Michele Score Blood Edema Fundus Height Fundus Units Glucose Ketones Leukocytes Nitrite Labor Signs Protein Cervic Dilation Cervic Effacement Cervic Station neg none none negative Other (see comments ) neg Type Weight in lbs Pre/Post Dialysis Refused Weight 143.603064011826 BP Diastolic BP Location Tested BP Systolic BP Type 58 100 sitting Fetus Heart Rate Present A 152 Present Fetus Movement A Yes Comments nausea associated with acid reflex Flowsheet Date 10/19/2018 Michele Score Blood Edema Fundus Height Fundus Units Glucose Ketones Leukocytes Nitrite Labor Signs Protein Cervic Dilation Cervic Effacement Cervic Station none 29 cm Type Weight in lbs Pre/Post Dialysis Refused Weight 152.976324459555 BP Diastolic BP Location Tested BP Systolic BP Type 70 126 sitting Fetus Heart Rate Present A 144 Present Fetus Movement A Yes Comments Flowsheet Date 04/22/2019 Michele Score Blood Edema Fundus Height Fundus Units Glucose Ketones Leukocytes Nitrite Labor Signs Protein Cervic Dilation Cervic Effacement Cervic Station Type Weight in lbs Pre/Post Dialysis Refused Weight 145.8236365922 BP Diastolic BP Location Tested BP Systolic BP Type Fetus Heart Rate Present Fetus Movement Comments Menstrual History Last Menstrual Date Menses Monthly On Bcp Conception Prior Menses Frequency Hcg Plus Date Menarche Onset Age 1103/19/2018 false 28 8 15 Genetic Screening And Infection History Question Response Note Patient's Age Will Be 35 Years Or Older At Estim ated Date of Delivery false Thalassemia (Greek, British, Mediterranean, Or Background): MCV < 80 false Neural Tube Defect (Meningomyelocele, Spina Bifi da, Or Anencephaly) false Congenital Heart Defect false Down Syndrome false Juan-Sachs (eg, Evangelical, Cajun, Guinean-[place]) f alse Sissy Disease false Sickle Cell Disease Or Trait () false Hemophilia Or Other Blood Disorders false Muscular Dystrophy false Cystic Fibrosis false [place]'s Chorea false Mental Retardation/Autism false If Yes, Was Person Tested For [...] of Hepatitis false Prior GBS-infected child false Plans and Education First Trimester Discussed Date Discussion Item Discussion Note Discuss ed By 05/22/2018 Anticipated course of care [facility] 05/22/2018 Alcohol [facility] 05/22/2018 [facility]2018 Environmental/work hazards [facility] 05/22/2018 Screening for aneuploidy [facility] 05/22/2018 Nutrition counseling ; special diet; dietary precautions (mercury, listeriosis) [facility] 05/22/2018 Childbirth classes/hospital facilities [facility] 05/22/2018 HIV and other routine tests [facility] 05/22/2018 Risk factors identif ied by history [facility] 05/22/2018 Weight gain counseling [facility] 05/22/2018 Exercise [facility] 05/22/2018 Teratogens [facility] 05/22/2018 Use of any medicatio ns (including supplements, vitamins, herbs, or OTC drugs) [facility] 05/22/2018 [facility] 05/22/2018 Sexual activity [facility] 05/22/2018 Tobacco/smoking cess ation counseling (ask, advise, assess, assist, and arrange) [facility] 05/22/2018 Illicit/recreational drugs [facility] 05/22/2018 Dental care [facility] 05/22/2018 Travel [facility] 05/22/2018 Seat belt use [facility] 05/22/2018 Indications for ultrasonography [facility] 05/22/2018 Avoidance of saunas or hot tubs [facility] 05/22/2018 Toxoplasmosis precautions (cats/raw meat) [facility] Second Trimester Discussed Date Discussion Item Discussion Note Discuss ed By 06/26/2018 Selecting a care provider [facility] 06/26/[address] anning/tubal sterilization [facility] 06/26/2018 Depression screening (when indicated) [facility] 06/05/2018 Abnormal lab values [email or web address] 06/26/2018 Signs and symptoms of labor [email or web address] 06/26/2018 Intimate partner violence [facility] 06/26/2018 Tobacco/smoking cess ation counseling (ask, advise, assess, assist, and arrange) [facility] Third Trimester Discussed Date Discussion Item Discussion Note Discuss ed By Delivery Information Delivery Date Delivery Type Labor Anesthesia Weeks Gestation Incision Type Labor Labor Length Hrs Delivered By Post Complications Tubal Sterilization Discharge Date Comments 9 Sponta neous None 39.2 false false Discharge Information Feeding Method Contraceptive Method Maternal HG B and HCT Levels Breast vascetomy? Ob Episode Information Episode Created Date Number of Fetuses Patient Bloodtype Patient rh Status Prepregnancy Weight lbs Domestic Partner Domestic Partner Phone Father Name Hand Rigger Status 07/09/19 23 1 CLOSED Fetus Data First Name Last Name Admitted to NICU Weight (g) Sex Living Outcome Pediatric Complications Fetus ID Race Codes Race Delivery Type , Spontane ous [id number] Migel Calculation Initial Migel Date Initial Exam [...] Complications Tubal Sterilization Discharge Date Comments 2 8 Discharge Information Feeding Method Contraceptive Method Maternal HG B and HCT Levels Ob Episode Information Episode Created Date Number of Fetuses Patient Bloodtype Patient rh Status Prepregnancy Weight lbs Domestic Partner Domestic Partner Phone Father Name Hand Rigger Status 03/02/20 20 1 O Positive CLOSED Fetus Data First Name Last Name Admitted to NICU Weight (g) Sex Living Outcome Pediatric Complications Fetus ID Race Codes Race Delivery Type [id number] Problems Problem Notes Problem Name Start Date End Date Resolution Snomed Code Note 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 Advanced maternal age 06/05/19 19 [id number] Gastroesophageal reflux disease 03/02/20 917030308 Body mass index 25-29 - overweight [id number] Genital Herpes simplex type 1 infection 06/09/19 [id number] Migel Calculation Initial Migel Date Initial Exam Date Initial Exam Provider Initial Ultrasound Date Last Menstrual Period Date Ultra Sound Weeks Gestation 10/08/2020 03/02/2020 [email or web address] 03/28/2020 01/01/2020 12 Eighteen To Twenty Week Migel Update Ultra Sound Date Fundal Height At Umbil Quickening Date Ultra Sound Latest Weeks Gestation Final Migel Confirmed By Final Migel Confirmed Date Final Migel Date Ultra Sound Latest Days Gestation 03/28/20 20 12 [email or web address] 04/26/2020 021 2 Pre- Flowsheet Flowsheet Date 03/02/2020 Michele Score Blood Edema Fundus Height Fundus Units Glucose Ketones Leukocytes Nitrite Labor Signs Protein Cervic Dilation Cervic Effacement Cervic Station neg none 8 none negative none neg Type Weight in lbs Pre/Post Dialysis Refused With clothes 146.492515307766 BP Diastolic BP Location Tested BP Systolic BP Type 70 120 sitting Fetus Heart Rate Present Fetus Movement Comments NOB; AMA Flowsheet Date 04/26/2020 Michele Score Blood Edema Fundus Height Fundus Units Glucose Ketones Leukocytes Nitrite Labor Signs Protein Cervic Dilation Cervic Effacement Cervic Station neg none 16 wks none negative none neg Type Weight in lbs Pre/Post Dialysis Refused With clothes 146.720303067918 BP Diastolic BP Location Tested BP Systolic BP Type 66 108 sitting Fetus Heart Rate Present A 145 Present Fetus Movement A No Comments afp/nipt/us Menstrual History Last Menstrual Date Menses Monthly On Bcp Conception Prior Menses Frequency Hcg Plus Date Menarche Onset Age 0801/01/2020 true Genetic Screening And Infection History Question Response Note Patient's Age Will Be 35 Years Or Older At Estim ated Date of Delivery true Thalassemia (Greek, British, Mediterranean, Or Background): MCV < 80 false Neural Tube Defect (Meningomyelocele, Spina Bifi da, Or Anencephaly) false Congenital Heart Defect false Down Syndrome false Juan-Sachs (eg, Evangelical, Cajun, Gu[place]an-[place]) f alse Sissy Disease false Sickle Cell Disease Or Trait () false Hemophilia Or Other Blood Disorders false Muscular Dystrophy false Cystic Fibrosis false [place]'s Chorea false Mental Retardation/Autism false If Yes, Was Person Tested For [...] of Hepatitis false Prior GBS-infected child false Delivery Information Delivery Date Delivery Type Labor Anesthesia Weeks Gestation Incision Type Labor Labor Length Hrs Delivered By Post Complications Tubal Sterilization Discharge Date Comments Kelsi ChamberlainW Discharge Information Feeding Method Contraceptive Method Maternal HG B and HCT Levels Ob Episode Information Episode Created Date Number of Fetuses Patient Bloodtype Patient rh Status Prepregnancy Weight lbs Domestic Partner Domestic Partner Phone Father Name Hand Rigger Status 10/25/19 18 1 CLOSED Fetus Data First Name Last Name Admitted to NICU Weight (g) Sex Living Outcome Pediatric Complications Fetus ID Race Codes Race Delivery Type M Full Term [id number] Vaginal Migel Calculation Initial Migel Date Initial Exam Date Initial Exam Provider Initial Ultrasound Date Last Menstrual Period Date Ultra Sound Weeks Gestation 0 Eighteen To Twenty Week Migel Update Ultra Sound Date Fundal Height At Umbil Quickening Date Ultra Sound Latest Weeks Gestation Final Imgel Confirmed By Final Migel Confirmed Date Final Migel Date Ultra Sound Latest Days Gestation 0 0 Menstrual History Last Menstrual Date Menses Monthly On Bcp Conception Prior Menses Frequency Hcg Plus Date Menarche Onset Age Delivery Information Delivery Date Delivery Type Labor Anesthesia Weeks Gestation Incision Type Labor Labor Length Hrs Delivered By Post Complications Tubal Sterilization Discharge Date Comments 3 None 40 [place] Discharge Information Feeding Method Contraceptive Method Maternal HG B and HCT Levels Ob Episode Information Episode Created Date Number of Fetuses Patient Bloodtype Patient rh Status Prepregnancy Weight lbs Domestic Partner Domestic Partner Phone Father Name Hand Rigger Status 10/25/19 18 1 CLOSED Fetus Data First Name Last Name Admitted to NICU Weight (g) Sex Living Outcome Pediatric Complications Fetus ID Race Codes Race Delivery Type F Full Term 21435 Vaginal Migel Calculation Initial Migel Date Initial Exam [...] Complications Tubal Sterilization Discharge Date Comments 5 None 40 false Baby was born in [place], [place] Discharge Information Feeding Method Contraceptive Method Maternal HG B and HCT Levels Ob Episode Information Episode Created Date Number of Fetuses Patient Bloodtype Patient rh Status Prepregnancy Weight lbs Domestic Partner Domestic Partner Phone Father Name Hand Rigger Status 10/25/19 18 1 CLOSED Fetus Data First Name Last Name Admitted to NICU Weight (g) Sex Living Outcome Pediatric Complications Fetus ID Race Codes Race Delivery Type F Full Term 33200 Vaginal Migel Calculation Initial Migel Date Initial Exam [...] Complications Tubal Sterilization Discharge Date Comments 5 None 40 false Discharge Information Feeding Method Contraceptive Method Maternal HG B and HCT Levels Ob Episode Information Episode Created Date Number of Fetuses Patient Bloodtype Patient rh Status Prepregnancy Weight lbs Domestic Partner Domestic Partner Phone Father Name Hand Rigger Status 10/25/19 18 1 CLOSED Fetus Data First Name Last Name Admitted to NICU Weight (g) Sex Living Outcome Pediatric Complications Fetus ID Race Codes Race Delivery Type M Full Term 80675 Vaginal Migel Calculation Initial Migel Date Initial Exam [...] Complications Tubal Sterilization Discharge Date Comments 1 None 40 false Baby was born in [place] Discharge Information Feeding Method Contraceptive Method Maternal HG B and HCT Levels Ob Episode Information Episode Created Date Number of Fetuses Patient Bloodtype Patient rh Status Prepregnancy Weight lbs Domestic Partner Domestic Partner Phone Father Name Hand Rigger Status 10/25/19 18 1 CLOSED Fetus Data First Name Last Name Admitted to NICU Weight (g) Sex Living Outcome Pediatric Complications Fetus ID Race Codes Race Delivery Type M Full Term 80985 Vaginal Migel Calculation Initial Migel Date Initial Exam [...] Complications Tubal Sterilization Discharge Date Comments 4 None 40 false Baby ws born in [place] Discharge Information Feeding Method Contraceptive Method Maternal HG B and HCT Levels
== END 2025-03-09 23:22 | disposition home or self-care (01) ==
PROVIDERS: Emergency Provider Registered Nurse; PCP Obstetrics & Gynecology
DX: O20.0 Threatened abortion (principal); Z3A.01 Less than 8 weeks gestation of pregnancy
CPT/HCPCS: 36415; 76801; 80053; 81001; 84702; 85025; 85461; 85610; 85730; 86850; 86900; 86901; 96360; 99284; J7030